=== PATIENT | female | born 1960 | race African-American/Black ===

== ENCOUNTER 2017-12-23 19:01 | Emergency (ER) | payer MEDICARE, SELFPAY ==
[2017-12-23 19:10] VITALS: BP 182/77; PULSE 78; RESP 18; TEMP 36.7; O2SAT 98; BMI 29.2
--- NOTE | 2017-12-23 19:14 | HMH.EDWNDL ---
ED Disposition Clinical Impression: Paronychia, Encounter for incision and drainage procedure Disposition: Home, Self-Care Condition on Discharge: Fair Additional Instructions: 1- keep the finger elevated. 2- continue keflex. 3- added bactrim 2 po bid x 10 days. 4- follow up with dr montaño in AM. 5- Do not peel the skin please. 6- follow up with dr montaño on final x ray report and untill complete healing. Prescriptions: Sulfamethoxazole/Trimethoprim [Bactrim DS tablet] 2 each PO BID #40 tab - Critical Care Critical Care Time: No Attestation: On , the high probability of a clinically significant, sudden or life threatening deterioration of the following system(s) required my full and direct attention, intervention and personal management. The time I documented below is in addition to time spent performing reported procedures but includes the following listed in this critical care notation. Medical Decision Making - Baron Inquiry Pt receiving controlled substance: No Baron was queried for this patient: No Vital Signs: 12/23/17 19:10 Temperature 98.1 F Temperature Source Oral Pulse Rate [Right Radial] 78 Respiratory Rate 18 Blood Pressure [Right Arm] 182/77 Blood Pressure Mean [Right Arm] 112 Blood Pressure Source [Right Arm] Automatic Cuff Blood Pressure Position [Right Arm] Sitting 02 Sat by Pulse Oximetry 98 Oxygen Delivery Method Room Air Orders (Tests/Meds): ORDERS Category Date Time Status Finger XR left minimum 2 views [XR finger LT min 2V] Exams 12/23/17 19:19 Taken Stat Wound Culture and Gram Stain Stat Micro 12/23/17 19:44 Ordered Medical Decision Narrative: Discussed the risks and benefits of incision and drainage to the patient. Under sterile technique used the blade 11 did an L-shaped incision at the posterior pole with complete evacuation of the pus and minimal bleeding. Patient tolerated the procedure. Wound/Laceration HPI - General Stated Complaint: Infection in L middle finger Time Seen by Provider: 12/23/17 19:10 - History of Present Illness HPI narrative: 57 years old -Burmese female of Dr. Roberts who bites her nails she developed a paronychia of the left middle finger 6 days ago. She was seen in urgent care and started on Keflex, he developed a pustule and a friend to try to drain it yesterday with no results. Continues to use her Keflex and she came today for I&D. Denies having fever or chills there is no radiating pain to the upper extremity. Nausea or vomiting. Onset (ago): day(s) (6 days.) Extremity Location: Left: hand (Paronychia of the left middle finger.) Place: home Context: other (Due to nailbiting.) Associated symptoms: pain - Related Data Home Medications Medication Instructions Recorded Confirmed aspirin 325 mg tablet 325 mg PO BID 12/20/17 12/23/17 diltiazem ER (XR/XT) 180 mg 180 mg PO DAILY 90 Days #90 12/20/17 12/23/17 capsule,extended release 24 hr, controlled escitalopram 10 mg tablet 10 mg PO DAILY 30 Days #30 12/20/17 12/23/17 hydrocodone 5 mg-acetaminophen 325 5 mg PO NEEDED PRN 8 Days #30 12/20/17 12/23/17 mg tablet hydroxychloroquine 200 mg tablet 200 mg PO DAILY 30 Days #60 12/20/17 12/23/17 nitroglycerin 0.4 mg sublingual 0.4 mg SUBLINGUAL Q5M PRN 12/20/17 12/23/17 tablet pantoprazole 40 mg tablet,delayed 40 mg PO DAILY 30 Days #30 12/20/17 12/23/17 release ranolazine ER 500 mg 500 mg PO DAILY 90 Days #180 12/20/17 12/23/17 tablet,extended release,12 hr tizanidine 4 mg tablet 4 mg PO NEEDED PRN 30 Days #60 12/20/17 12/23/17 topiramate 100 mg tablet 100 mg PO DAILY 30 Days #60 12/20/17 12/23/17 Previous Rx's Medication Instructions Recorded cephalexin 500 mg capsule 500 mg PO Q12H 10 Days #20 cap 12/20/17 Sulfamethoxazole/Trimethoprim 2 each PO BID #40 tab 12/23/17 [Bactrim DS tablet] Allergies Allergy/AdvReac Type Severity Reaction Status Date / Carloz
--- NOTE | 2017-12-23 19:17 | ED_ITS ---
ED Disposition Clinical Impression: Paronychia, Encounter for incision and drainage procedure Disposition: Home, Self-Care Condition on Discharge: Fair Additional Instructions: 1- keep the finger elevated. 2- continue keflex. 3- added bactrim 2 po bid x 10 days. 4- follow up with dr montaño in AM. 5- Do not peel the skin please. 6- follow up with dr montaño on final x ray report and untill complete healing. Prescriptions: Sulfamethoxazole/Trimethoprim [Bactrim DS tablet] 2 each PO BID #40 tab - Critical Care Critical Care Time: No Attestation: On , the high probability of a clinically significant, sudden or life threatening deterioration of the following system(s) required my full and direct attention, intervention and personal management. The time I documented below is in addition to time spent performing reported procedures but includes the following listed in this critical care notation. Medical Decision Making - Baron Inquiry Pt receiving controlled substance: No Baron was queried for this patient: No Vital Signs: 12/23/17 19:10 Temperature 98.1 F Temperature Source Oral Pulse Rate [Right Radial] 78 Respiratory Rate 18 Blood Pressure [Right Arm] 182/77 Blood Pressure Mean [Right Arm] 112 Blood Pressure Source [Right Arm] Automatic Cuff Blood Pressure Position [Right Arm] Sitting 02 Sat by Pulse Oximetry 98 Oxygen Delivery Method Room Air Orders (Tests/Meds): ORDERS Category Date Time Status Finger XR left minimum 2 views [XR finger LT min 2V] Exams 12/23/17 19:19 Taken Stat Wound Culture and Gram Stain Stat Micro 12/23/17 19:44 Ordered Medical Decision Narrative: Discussed the risks and benefits of incision and drainage to the patient. Under sterile technique used the blade 11 did an L-shaped incision at the posterior pole with complete evacuation of the pus and minimal bleeding. Patient tolerated the procedure. Wound/Laceration HPI - General Stated Complaint: Infection in L middle finger Time Seen by Provider: 12/23/17 19:10 - History of Present Illness HPI narrative: 57 years old -[place] female of Dr. Roberts who bites her nails she developed a paronychia of the left middle finger 6 days ago. She was seen in urgent care and started on Keflex, he developed a pustule and a friend to try to drain it yesterday with no results. Continues to use her Keflex and she came today for I&D. Denies having fever or chills there is no radiating pain to the upper extremity. Nausea or vomiting. Onset (ago): day(s) (6 days.) Extremity Location: Left: hand (Paronychia of the left middle finger.) Place: home Context: other (Due to nailbiting.) Associated symptoms: pain - Related Data Home Medications Medication Instructions Recorded Confirmed aspirin 325 mg tablet 325 mg PO BID 12/20/17 12/23/17 diltiazem ER (XR/XT) 180 mg 180 mg PO DAILY 90 Days #90 12/20/17 12/23/17 capsule,extended release 24 hr, controlled escitalopram 10 mg tablet 10 mg PO DAILY 30 Days #30 12/20/17 12/23/17 hydrocodone 5 mg-acetaminophen 325 5 mg PO NEEDED PRN 8 Days #30 12/20/17 mg tablet hydroxychloroquine 200 mg tablet 200 mg PO DAILY 30 Days #60 12/20/17 12/23/17 nitroglycerin 0.4 mg sublingual 0.4 mg SUBLINGUAL Q5M PRN
--- NOTE | 2017-12-23 19:19 | XR_ITS ---
XR finger LT min 2V CLINICAL INDICATION: Soft tissue swelling, evaluate for foreign body ITS.REASON: r/o fb ORDERING PHYSICIAN: Sharon Regalado MD PATIENT AGE: 57 years COMPARISON: None FINDINGS: Extensive soft tissue swelling is present involving the dorsal and distal aspect of the middle finger. No radio opaque foreign body, bony destructive change, fracture, or other significant anomalies. IMPRESSION: Extensive soft tissue swelling otherwise negative
[2017-12-23 20:05] VITALS: BP 172/88; PULSE 80; RESP 18; TEMP 36.7; O2SAT 99
== END 2017-12-23 20:05 | disposition home or self-care (01) ==
PROVIDERS: Emergency Provider Emergency Medicine; Family Provider Family Medicine; PCP Family Medicine
DX: L03.012 Cellulitis of left finger (principal); I25.10 Atherosclerotic heart disease of native coronary artery without angina pectoris; G43.909 Migraine, unspecified, not intractable, without status migrainosus; Z79.82 Long term (current) use of aspirin
CPT/HCPCS: 10060; 73140; 87070; 87077; 87186; 87205; 99283

== ENCOUNTER → 2018-02-04 09:03 | Outpatient (CLI) | payer MEDICARE, SELFPAY ==
[2018-02-08 21:16] LABS: Miscellaneous Test TPMT ACTIVITY
== END ==
PROVIDERS: Visit Provider Internal Medicine Rheumatology
DX: Z79.899 Other long term (current) drug therapy (principal)
CPT/HCPCS: 36415; 82657

== ENCOUNTER → 2018-03-08 08:31 | Outpatient (CLI) | payer MEDICARE, SELFPAY ==
[2018-03-08 08:58] LABS: Basophils % 0.6 % (0.1-2.0); Eosinophils # 0.3 K/mm3 (0.0-0.4); Eosinophils % 5.8 % (0.1-12.0); Hematocrit 42.7 % (37.0-47.0); Hemoglobin 13.5 g/dL (12.2-16.2); Lymphocytes # 1.5 K/mm3 (0.7-4.5); Lymphocytes % 25.3 K/mm3 (10-50); Mean Corpuscular HGB Conc 31.7 g/dL (31.8-35.4); Mean Corpuscular Hemoglobin 31.8 pg (27.0-31.2); Mean Corpuscular Volume 100.4 fl (81-99); Mean Platelet Volume 7.6 fl (7.4-10.4); Monocytes # 0.4 K/mm3 (0.1-1.0); Monocytes % 6.9 % (1.7-9.3); Neutrophils # 3.7 K/mm3 (1.8-7.8); Neutrophils % 61.4 % (37.0-80.0); Platelet Count 257 K/mm3 (142-424); Red Blood Count 4.25 M/mm3 (4.20-5.40); Red Cell Distribution Width 14.2 % (11.5-17.5)
[2018-03-08 10:24] LABS: Alanine Aminotransferase 26 U/L (12-78); Albumin Level 3.9 gm/dL (3.4-5.0); Alkaline Phosphatase 86 U/L (46-116); Anion Gap 17.2 mEq/L (5-15); Aspartate Amino Transferase 16 U/L (15-37); Bilirubin,Total 0.5 mg/dL (0.2-1.0); Blood Urea Nitrogen 10 mg/dL (7-18); Calcium 9.2 mg/dL (8.5-10.1); Carbon Dioxide 23 mmol/L (21.0-32.0); Chloride 108 mmol/L (98-107); Creatinine,Serum 0.91 mg/dL (0.55-1.02); Estimated Glomerular Filt Rate 64 ml/min (>60); GFR (African American) 77 ML/MIN (>60); Globulin 3.8 gm/dl (1.3-3.2); Glucose 140 mg/dL (74-106); Potassium 4.2 mmoL/L (3.5-5.1); Sodium 144 mmol/L (136-145); Total Protein,Serum 7.7 gm/dL (6.4-8.2)
== END ==
PROVIDERS: Visit Provider Family Medicine
DX: M32.9 Systemic lupus erythematosus, unspecified (principal); Z79.899 Other long term (current) drug therapy
CPT/HCPCS: 36415; 80053; 85025

== ENCOUNTER → 2018-12-09 10:45 | Outpatient (CLI) | payer MEDICARE, SELFPAY ==
[2018-12-09 10:50] LABS: Microscopic, Urine URINE MICROSCOPIC (MICROSCOPIC)
[2018-12-09 11:35] LABS: Basophils % 0.8 % (0.1-2.0); Eosinophils # 0.2 K/mm3 (0.0-0.4); Eosinophils % 5.4 % (0.1-12.0); Hematocrit 41.7 % (37.0-47.0); Lymphocytes # 1.5 K/mm3 (0.7-4.5); Lymphocytes % 33.7 % (10-50); Mean Corpuscular HGB Conc 33.6 g/dL (31.8-35.4); Mean Corpuscular Hemoglobin 33.2 pg (27.0-31.2); Mean Corpuscular Volume 98.8 fl (81-99); Monocytes # 0.3 K/mm3 (0.1-1.0); Monocytes % 6.5 % (1.7-9.3); Neutrophils # 2.3 K/mm3 (1.8-7.8); Neutrophils % 53.4 % (37.0-80.0); Platelet Count 361 K/mm3 (142-424); Red Blood Count 4.22 M/mm3 (4.20-5.40); White Blood Count 4.4 K/mm3 (4.8-10.8)
[2018-12-09 12:30] LABS: Alanine Aminotransferase 21 U/L (12-78); Albumin Level 3.8 gm/dL (3.4-5.0); Albumin/Globulin Ratio 0.9 (1.1-1.8); Alkaline Phosphatase 90 U/L (46-116); Anion Gap 18.3 mEq/L (5-15); Aspartate Amino Transferase 17 U/L (15-37); Bilirubin,Total 0.6 mg/dL (0.2-1.0); Blood Urea Nitrogen 8 mg/dL (7-18); Calcium 9.3 mg/dL (8.5-10.1); Carbon Dioxide 21 mmol/L (21.0-32.0); Chloride 106 mmol/L (98-107); Creatinine,Serum 0.85 mg/dL (0.55-1.02); Estimated Glomerular Filt Rate 69 ml/min (>60); GFR (African American) 83 ML/MIN (>60); Globulin 4.3 gm/dl (1.3-3.2); Glucose 142 mg/dL (74-106); Potassium 4.3 mmoL/L (3.5-5.1); Sodium 141 mmol/L (136-145); Total Protein,Serum 8.1 gm/dL (6.4-8.2)
[2018-12-09 12:31] LABS: C-Reactive Protein < 0.2 mg/L (0.0-0.9)
[2018-12-09 12:33] LABS: Erythrocyte Sedimentation Rate 32 mm/hr (0-30)
[2018-12-09 14:28] LABS: Appearance,Urine CLEAR (Clear); Bilirubin,Urine Negative (Negative); Blood, Urine Negative (Negative); Color,Urine YELLOW (Yellow); Glucose,Urine (UA) Negative (Negative); Ketones,Urine Negative (Negative); Leukocyte Esterase,Urine Negative (Negative); Nitrate,Urine Negative (Negative); Protein,Urine 1+ (Negative); Urobilinogen,Urine 0.2 EU/dl (0.2)
[2018-12-09 14:52] LABS: Bacteria,Urine Trace /lpf; RBC,Urine Occasional #/hpf (0-3)
[2018-12-10 09:44] LABS: Complement C3 138 mg/dL (82-167); Vitamin D 25 Hydroxy 9.4 ng/mL (30.0-100.0)
[2018-12-10 16:10] LABS: Anti-DNA (DS) Ab Qn <1 IU/mL (0-9)
== END ==
PROVIDERS: Visit Provider Internal Medicine Rheumatology
DX: E55.9 Vitamin D deficiency, unspecified (principal); I25.10 Atherosclerotic heart disease of native coronary artery without angina pectoris; M32.9 Systemic lupus erythematosus, unspecified; R13.10 Dysphagia, unspecified; R52 Pain, unspecified
CPT/HCPCS: 36415; 80053; 81001; 82652; 85025; 85651; 86140; 86161; 86225

== ENCOUNTER → 2019-02-20 08:34 | Outpatient (CLI) | payer MEDICARE, SELFPAY ==
--- NOTE | 2019-02-20 | CI_ITS ---
Cerebrovascular Exam Indications: Follow-up carotid 433.10. 785.9 Bruit. IMPRESSIONS 1. The bilateral vertebral arteries are patent with normal antegrade flow. 2. Study suggests less than 20% stenosis involving the right internal carotid artery. 3. Study suggests 50-69% stenosis involving the left internal carotid artery. History: Risk factors: Former smoker - years since quittinyr. Hypertension. Hyperlipidemia. Carotid duplex study. Complete study and Doppler flow study including spectral analysis, color and lora scale imaging. Height: Height: 162.6cm. Height: 64in. Weight: Weight: 73.5kg. Weight: 161.7lb. Body mass index: BMI: 27.8kg/m^2. Body surface area: BSA: 1.84m^2. Location: Vascular laboratory. Patient status: Outpatient. Tables: Arterial flow: + +--------+--------+ Location V sys V ed + +--------+--------+ Right CCA - proximal 64.6cm/s 14.7cm/s + +--------+--------+ Right CCA - distal 58.3cm/s 16.2cm/s + +--------+--------+ Right ECA 96.6cm/s 11.6cm/s + +--------+--------+ Right ICA - proximal 57.3cm/s 15.8cm/s + +--------+--------+ Right ICA - mid 56.8cm/s 15.5cm/s + +--------+--------+ Right ICA - distal 74.6cm/s 24.4cm/s + +--------+--------+ Right vertebral 38.5cm/s 12.8cm/s + +--------+--------+ Left CCA - proximal 80.8cm/s 20.4cm/s + +--------+--------+ Left CCA - distal 73.1cm/s 16.9cm/s + +--------+--------+ Left ECA 72.6cm/s 14.7cm/s + +--------+--------+ Left ICA - proximal 115cm/s 31.6cm/s + +--------+--------+ Left ICA - mid 65cm/s 18.7cm/s + +--------+--------+ Left ICA - distal 80cm/s 24.6cm/s + +--------+--------+ Left vertebral 54.1cm/s 16.2cm/s + +--------+--------+ Velocity ratios: + + + + + + Right, V sys Right, V ed Left, V sys Left, V ed + + + + + + Max ICA/dist CCA 1.28 1.51 1.57 1.87 + + + + + + (Report amended ) Electronically signed by: George Alva [id number]
== END ==
PROVIDERS: PCP Family Medicine; Visit Provider Family Medicine
DX: I65.22 Occlusion and stenosis of left carotid artery (principal); R09.89 Other specified symptoms and signs involving the circulatory and respiratory systems; R29.90 Unspecified symptoms and signs involving the nervous system
CPT/HCPCS: 93880

== ENCOUNTER → 2019-03-21 11:21 | Outpatient (CLI) | payer MEDICARE, SELFPAY ==
[2019-03-21 14:21] LABS: Blood Urea Nitrogen 10 mg/dL (7-18); Creatinine,Serum 0.97 mg/dL (0.55-1.02); Estimated Glomerular Filt Rate 59 ml/min (>60); GFR (African American) 72 ML/MIN (>60)
== END ==
PROVIDERS: Visit Provider Family Medicine
DX: Z01.818 Encounter for other preprocedural examination (principal)
CPT/HCPCS: 36415; 82565; 84520

== ENCOUNTER → 2019-03-25 10:09 | Outpatient (CLI) | payer MEDICARE, SELFPAY ==
--- NOTE | 2019-03-25 10:25 | CT_ITS ---
CT angio neck INDICATION: ITS.REASON: LEFT CAROTID STENOSIS,TIA ORDERING PHYSICIAN: Bharat Roberts MD PATIENT AGE: 58 years COMPARISON: None TECHNIQUE: Axial images are obtained without contrast. Sagittal and coronal reformatted images are reviewed as well. All CT scans at the facility use one or more dose reduction, viz: automated exposure control, ma/kV adjustment per patient size (including targeted exams where dose is matched to indication, i.e. head), or iterative reconstruction technique. FINDINGS: Nascet criteria was utilized. There are some nonstenotic calcifications at the origins of the great vessels from the aortic arch. Proximal left subclavian artery shows irregular calcified plaque with moderate to severe short segment stenosis proximal to the origin of the thyrocervical trunk. Left carotid bifurcation shows some small calcific plaques at the origin of the left ICA and ECA without stenosis. Left cervical ICA is unremarkable. Right carotid circulation also shows some small calcified plaques at the origin of the right ICA without stenosis. Right cervical ICA is unremarkable. Both vertebral arteries are somewhat small and patent. Soft tissues of the neck are unremarkable. There are some emphysematous changes in the apical area of both lungs with multiple right lung calcified granulomas. Intracranial vessels show no definite aneurysm, stenosis or occlusion. There are some nonstenotic calcified plaques involving the cavernous ICA areas bilaterally. Opacified dural sinuses appear normal. There is no vascular malformation or intra-axial parenchymal enhancement. There are nonspecific benign appearing bilateral basal ganglia calcified densities. IMPRESSION: Calcific atherosclerotic vascular disease as described. No hemodynamically significant stenosis involving either of the proximal left or right internal carotid arteries. Moderate to severe stenosis of the proximal left subclavian artery. Intracranial vessels are unremarkable. There is sphenoid sinus mild mucosal thickening. Upper lung areas shows COPD and calcified granulomas.
== END ==
PROVIDERS: PCP Family Medicine; Visit Provider Family Medicine
DX: G45.9 Transient cerebral ischemic attack, unspecified
CPT/HCPCS: 70498; Q9967

== ENCOUNTER → 2019-05-05 11:32 | Outpatient (CLI) | payer MEDICARE, SELFPAY ==
[2019-05-05 14:57] LABS: Alanine Aminotransferase 22 U/L (12-78); Albumin Level 3.6 gm/dL (3.4-5.0); Alkaline Phosphatase 85 U/L (46-116); Anion Gap 14.7 mEq/L (5-15); Bilirubin,Direct 0.1 mg/dL (0.0-0.2); Bilirubin,Total 0.5 mg/dL (0.2-1.0); Blood Urea Nitrogen 10 mg/dL (7-18); Calcium 8.8 mg/dL (8.5-10.1); Carbon Dioxide 23 mmol/L (21.0-32.0); Chloride 107 mmol/L (98-107); Chol/HDL Ratio 4.4 (1-3.5); Cholesterol 161 mg/dL (140-200); Creatinine,Serum 0.88 mg/dL (0.55-1.02); Estimated Glomerular Filt Rate 66 ml/min (>60); GFR (African American) 80 ML/MIN (>60); Globulin 3.7 gm/dl (1.3-3.2); Glucose 130 mg/dL (74-106); HDL Cholesterol 37 mg/dL (29-89); LDL Cholesterol 100 mg/dL (0-130); Sodium 140 mmol/L (136-145); Total Protein,Serum 7.3 gm/dL (6.4-8.2); Triglycerides 121 mg/dL (30-200); VLDL Cholesterol 24 mg/dL (0-40)
[2019-05-05 14:58] LABS: Potassium 4.7 mmoL/L (3.5-5.1)
[2019-05-05 14:59] LABS: Aspartate Amino Transferase 15 U/L (15-37)
== END ==
PROVIDERS: Visit Provider Internal Medicine Cardiovascular Disease
DX: E78.5 Hyperlipidemia, unspecified (principal)
CPT/HCPCS: 36415; 80053; 80061; 82248

== ENCOUNTER → 2019-06-20 11:37 | Outpatient (CLI) | payer MEDICARE, SELFPAY ==
[2019-06-20 12:13] LABS: Basophils # 0.1 K/mm3 (0-0.2); Basophils % 0.8 % (0.1-2.0); Eosinophils # 0.3 K/mm3 (0.0-0.4); Eosinophils % 4.3 % (0.1-12.0); Hematocrit 39.2 % (37.0-47.0); Lymphocytes # 1.2 K/mm3 (0.7-4.5); Lymphocytes % 20.6 % (10-50); Mean Corpuscular Hemoglobin 34.6 pg (27.0-31.2); Mean Corpuscular Volume 104.8 fl (81-99); Mean Platelet Volume 7.5 fl (7.4-10.4); Monocytes # 0.4 K/mm3 (0.1-1.0); Monocytes % 7.4 % (1.7-9.3); Neutrophils % 66.9 % (37.0-80.0); Platelet Count 311 K/mm3 (142-424); Red Blood Count 3.74 M/mm3 (4.20-5.40); Red Cell Distribution Width 13.5 % (11.5-17.5)
[2019-06-20 13:01] LABS: Alanine Aminotransferase 16 U/L (12-78); Albumin Level 3.7 gm/dL (3.4-5.0); Albumin/Globulin Ratio 0.9 (1.1-1.8); Alkaline Phosphatase 77 U/L (46-116); Anion Gap 16.6 mEq/L (5-15); Aspartate Amino Transferase 13 U/L (15-37); Bilirubin,Total 0.7 mg/dL (0.2-1.0); Blood Urea Nitrogen 9 mg/dL (7-18); C-Reactive Protein 2.2 mg/dL (0.0-0.9); Carbon Dioxide 22 mmol/L (21.0-32.0); Chloride 105 mmol/L (98-107); Creatinine,Serum 0.95 mg/dL (0.55-1.02); Estimated Glomerular Filt Rate 60 ml/min (>60); GFR (African American) 73 ML/MIN (>60); Glucose 121 mg/dL (74-106); Potassium 4.6 mmoL/L (3.5-5.1); Sodium 139 mmol/L (136-145); Total Protein,Serum 7.7 gm/dL (6.4-8.2)
[2019-06-20 14:13] LABS: Erythrocyte Sedimentation Rate > 140 mm/hr (0-30)
[2019-06-20 16:42] LABS: Appearance,Urine CLEAR (Clear); Bilirubin,Urine Negative (Negative); Blood, Urine Negative (Negative); Color,Urine YELLOW (Yellow); Glucose,Urine (UA) Negative (Negative); Ketones,Urine Negative (Negative); Leukocyte Esterase,Urine TRACE (Negative); Nitrate,Urine Negative (Negative); Protein,Urine Negative (Negative); Specific Gravity, Urine 1.025 (1.005-1.030)
[2019-06-20 17:26] LABS: Bacteria,Urine Trace /lpf; Squamous Epithelial Cell,Urine Occasional #/hpf (0-5)
[2019-06-21 06:14] LABS: Microscopic, Urine URINE MICROSCOPIC (MICROSCOPIC)
[2019-06-23 14:23] LABS: Complement C3 147 mg/dL (82-167)
[2019-06-23 14:26] LABS: Anti-DNA (DS) Ab Qn <1 IU/mL (0-9)
== END ==
PROVIDERS: Visit Provider Nurse Practitioner Family
DX: M32.9 Systemic lupus erythematosus, unspecified (principal); M85.80 Other specified disorders of bone density and structure, unspecified site; Z79.899 Other long term (current) drug therapy
CPT/HCPCS: 36415; 80053; 81001; 85025; 85651; 86140; 86161; 86225

== ENCOUNTER → 2019-06-30 10:31 | Outpatient (CLI) | payer MEDICARE, SELFPAY ==
[2019-06-30 10:40] LABS: Microscopic, Urine URINE MICROSCOPIC (MICROSCOPIC)
[2019-06-30 11:31] LABS: Basophils # 0.1 K/mm3 (0-0.2); Basophils % 1.1 % (0.1-2.0); Eosinophils # 0.3 K/mm3 (0.0-0.4); Hemoglobin 12.1 g/dL (12.2-16.2); Lymphocytes # 1.5 K/mm3 (0.7-4.5); Lymphocytes % 29.8 % (10-50); Mean Corpuscular HGB Conc 30.9 g/dL (31.8-35.4); Mean Corpuscular Hemoglobin 32.5 pg (27.0-31.2); Mean Corpuscular Volume 105.1 fl (81-99); Mean Platelet Volume 7.4 fl (7.4-10.4); Monocytes # 0.4 K/mm3 (0.1-1.0); Monocytes % 7.1 % (1.7-9.3); Neutrophils # 2.8 K/mm3 (1.8-7.8); Platelet Count 347 K/mm3 (142-424); Red Blood Count 3.71 M/mm3 (4.20-5.40); Red Cell Distribution Width 14.5 % (11.5-17.5); White Blood Count 4.9 K/mm3 (4.8-10.8)
[2019-06-30 12:48] LABS: Appearance,Urine CLEAR (Clear); Bilirubin,Urine Negative (Negative); Blood, Urine Negative (Negative); Color,Urine YELLOW (Yellow); Glucose,Urine (UA) Negative (Negative); Ketones,Urine Negative (Negative); Leukocyte Esterase,Urine Negative (Negative); Nitrate,Urine Negative (Negative); Protein,Urine Negative (Negative)
[2019-06-30 14:56] LABS: Alanine Aminotransferase 19 U/L (12-78); Albumin Level 3.6 gm/dL (3.4-5.0); Albumin/Globulin Ratio 0.9 (1.1-1.8); Alkaline Phosphatase 76 U/L (46-116); Anion Gap 16.3 mEq/L (5-15); Aspartate Amino Transferase 11 U/L (15-37); Bilirubin,Total 0.5 mg/dL (0.2-1.0); Blood Urea Nitrogen 11 mg/dL (7-18); Carbon Dioxide 22 mmol/L (21.0-32.0); Chloride 106 mmol/L (98-107); Creatinine,Serum 0.87 mg/dL (0.55-1.02); Estimated Glomerular Filt Rate 67 ml/min (>60); GFR (African American) 81 ML/MIN (>60); Globulin 3.9 gm/dl (1.3-3.2); Glucose 132 mg/dL (74-106); Potassium 4.3 mmoL/L (3.5-5.1); Sodium 140 mmol/L (136-145); Total Protein,Serum 7.5 gm/dL (6.4-8.2)
[2019-06-30 15:14] LABS: C-Reactive Protein < 0.2 mg/dL (0.0-0.9)
[2019-06-30 16:37] LABS: Erythrocyte Sedimentation Rate 78 mm/hr (0-30)
[2019-06-30 16:48] LABS: Bacteria,Urine Trace /lpf; WBC,Urine Occasional #/hpf (0-3)
[2019-07-01 14:14] LABS: Immunoglobulin A, Qn 439 mg/dL (87-352); Immunoglobulin G, Qn 1471 mg/dL (700-1600)
[2019-07-01 15:14] LABS: Albumin 3.7 g/dL (2.9-4.4); Alpha-1-Globulin 0.3 g/dL (0.0-0.4); Alpha-2-Globulin 0.7 g/dL (0.4-1.0); Gamma Globulin 1.4 g/dL (0.4-1.8); Protein, Total 7.3 g/dL (6.0-8.5)
[2019-07-01 16:15] LABS: Free Kappa Lt Chains 42.3 mg/L (3.3-19.4)
[2019-07-03 06:10] LABS: Immunoglobulin M, Qn 55 mg/dL (26-217)
== END ==
PROVIDERS: Visit Provider Internal Medicine
DX: M32.9 Systemic lupus erythematosus, unspecified (principal); R70.0 Elevated erythrocyte sedimentation rate; Z79.899 Other long term (current) drug therapy
CPT/HCPCS: 36415; 80053; 81001; 82784; 83883; 84155; 84165; 85025; 85651; 86140; 86334

== ENCOUNTER 2019-08-03 07:54 | Inpatient (IN) ==
[2019-08-03 08:18] LABS: Basophils % 0.3 % (0.1-2.0); Eosinophils # 0.4 K/mm3 (0.0-0.4); Eosinophils % 3.6 % (0.1-12.0); Hematocrit 41.9 % (37.0-47.0); Hemoglobin 13.5 g/dL (12.2-16.2); Lymphocytes # 1.4 K/mm3 (0.7-4.5); Lymphocytes % 13.8 % (10-50); Mean Corpuscular HGB Conc 32.1 g/dL (31.8-35.4); Mean Corpuscular Volume 105.4 fl (81-99); Mean Platelet Volume 7.7 fl (7.4-10.4); Monocytes # 0.5 K/mm3 (0.1-1.0); Monocytes % 5.3 % (1.7-9.3); Neutrophils # 7.7 K/mm3 (1.8-7.8); Neutrophils % 77.1 % (37.0-80.0); Platelet Count 298 K/mm3 (142-424); Red Blood Count 3.98 M/mm3 (4.20-5.40); Red Cell Distribution Width 14.2 % (11.5-17.5); White Blood Count 9.9 K/mm3 (4.8-10.8)
--- NOTE | 2019-08-03 08:20 | Emergency Department Note ---
ED Disposition Clinical Impression: Acute coronary syndrome with high troponin Chest pain Qualifiers: Chest pain type: chest pain due to myocardial ischemia Ischemic chest pain typ e: unspecified angina pectoris type Qualified Code(s): I25.9 - Chronic ischemic heart disease, unspecified Disposition: Admitted As Inpatient Condition on Discharge: Fair Additional Instructions: Being admitted to Dr. Roberts with Dr. Roque covering and consult to Dr. Walden Referrals: Provider,Referral, [Referring] - Time of Disposition: 08:51 - Critical Care Critical Care Time: Yes Attestation: On 08/03/19, the high probability of a clinically significant, sudden or life threatening deterioration of the following system(s) required my full and direct attention, intervention and personal management. The time I documented below is in addition to time spent performing reported procedures but includes the following listed in this critical care notation. Vital system(s) involved:: Circulatory Failure My critical care processes included: Assessment & monitoring of V/S, Initial and Re-exams, Data Review/Interpretation, Coordinating Care, Medication Orders and management, Documentation Medical Decision Making - Medical Records Medical records reviewed: Yes: I reviewed the patient's medical records. - Baron Inquiry Pt receiving controlled substance: Yes Baron was queried for this patient: No Reason not queried -: Emergent pt cond-no time Risks and benefits of using a controlled substance: were not discussed with pt by me Vital Signs: 08/03/19 08:00 08/03/19 08:07 Temperature 97.8 F Temperature Source Oral Pulse Rate [Right Brachial] 79 75 Respiratory Rate 15 18 Blood Pressure [Right Arm] 188/96 H 134/75 Blood Pressure Mean [Right Arm] 126 94 Blood Pressure Source [Right Arm] Automatic Cuff Blood Pressure Position [Right Arm] Sitting 02 Sat by Pulse Oximetry 100 98 Oxygen Delivery Method Room Air Room Air - Lab Data Lab results reviewed: Yes: I reviewed the patient's lab results. Lab Results 08/03/19 08:03: WBC 9.9, RBC 3.98 L, Hgb 13.5, Hct 41.9, MCV 105.4 H, MCH 33.8 H , MCHC 32.1, RDW 14.2, Plt Count 298, MPV 7.7, Neut % (Auto) 77.1, Lymph % (Auto) 13.8, Banner % (Auto) 5.3, Eos % (Auto) 3.6, Baso % (Auto) 0.3, Neut # (Auto) 7.7, Lymph # (Auto) 1.4, Banner # (Auto) 0.5, Eos # (Auto) 0.4, Baso # (Auto) 0.0 08/03/19 08:03: B-Natriuretic Peptide 177 H Result diagrams: 08/03/19 08:03 Orders (Tests/Meds): ED MEDICATIONS Generic Name Dose Route Start Last Admin Trade Name Freq PRN Reason Stop Dose Admin Heparin Sodium/Dextrose 500 mls @ 17 mls/hr 08/03/19 08:15 08/03/19 08:16 Heparin 25,000 Units In D5w 500ml Premix IV 09/02/19 08:14 17 mls/hr .Q25H ELOY Administration Nitroglycerin 0.4 mg 08/03/19 08:16 08/03/19 08:18 Nitrostat 0.4mg Sl Tablet SL 09/02/19 08:15 1 dose Q5MINP PRN Administration Chest Pain Discontinued Medications Generic Name Dose Route Start Last Admin Trade Name Freq PRN Reason Stop Dose Admin Aspirin 324 mg 08/03/19 08:15 08/03/19 08:18 Aspirin 81mg Chewable Tablet PO 08/03/19 08:16 324 mg ONCE ONE Administration Heparin Sodium (Porcine) 4,000 unit 08/03/19 08:15 08/03/19 08:16 Heparin Sodium 5,000 Units/Ml Vial IV 08/03/19 08:16 4,000 unit ONCE ONE Administration Methylprednisolone Sodium Succinate 125 mg 08/03/19 08:27 Solu-Medrol 125mg/2ml Vial IV 08/03/19 08:28 ONCE ONE Morphine Sulfate 4 mg 08/03/19 08:07 08/03/19 08:16 Morphine 4mg/Ml Syringe IV 08/03/19 08:08 4 mg ONCE ONE Administration Naloxone HCl 2 mg 08/03/19 08:26 Narcan 2mg/2ml Syringe IV 08/03/19 08:27 ONCE ONE Ondansetron HCl 4 mg 08/03/19 08:07 08/03/19 08:16 Zofran 4mg/2ml Vial IV 08/03/19 08:08 4 mg ONCE ONE Administration Ticagrelor 180 mg 08/03/19 08:16 Brilinta 90mg Tablet PO 08/03/19 08:17 ONCE ONE ORDERS Category Date Time Status Basic Metabolic Panel Stat Lab 08/03/19 08:03 Received INR [Prothrombin Time INR] Stat Lab 08/03/19 08:03 Ordered PT/PTT Stat Lab 08/03/19 08:28 Ordered PTT [Activated Partial Thrombo Time] Stat Lab 08/03/19 08:03 Stop Req Troponin I Stat Lab 08/03/19 08:03 Received ABG [Arterial Blood Gas] Stat RT 08/03/19 08:27 Ordered EKG Request [ECG Request by /Nse] Stat Y 08/03/19 08:28 Ordered - Radiology Data #1 Image(s): Chest Image Reviewed: Yes I reviewed the patient's radiology image Preliminary Findings: Normal/NAD Chest Pain HPI - General Chief Complaint: Chest Pain Stated Complaint: chest pain Time Seen by Provider: 08/03/19 07:54 Mode of Arrival: Family Vehicle Limitations: No Limitations Description of Symptoms (Recalled from ER Triage Doc. by RN): pt presents after having had sharp cp throughout night since 0 that she said woke her out of sleep. describes as intermittent, with no acute nausea, diaphoresis, or syncope. pt has a history of [address] sandoval - History of Present Illness HPI narrative: Patient is a 59-year-old black female who comes to the emergency room having awakened at 3:00 this morning with chest pain that she rated 7 on a scale of 10 she has a history of coronary artery disease and had a 4 had a 5 vessel CABG in the past. She is also had a splenectomy and has a history of lupus with hypertension she has been followed by Dr. Sandoval at [facility] in [place] but at this time she would prefer to stay at this facility for continuing treatment I have discussed her care with Dr. Walden and have ordered the medication that he he recommended at the present time her chest pain is less than 3 out of 10 and her blood pressure is down to 134 systolic MD complaint: chest pain indicative of cardiac Onset (ago): hour(s) Time: 03:00 Duration: constant Activity at onset: awoke with symptoms Pain location: substernal Quality: heaviness Relieving factors: nothing Exacerbating factors: nothing Associated symptoms: dyspnea Risk Factors for CAD: Hypertension Treatments prior to or on arrival for Cardiac Chest Pain: none - ASHLY Score for Non-Stemi Age of Patient: 50-59 years old Heart Rate: 70-89 bpm Systolic Blood Pressure: 160-199 mmHg CHF Killip Class: I-No CHF Other Risk Factors: Elevated Cardiac Enzymes or Biomarkers Non-Stemi Risk Score: 15 - Related Data Prior Cardiac Testing/Procedures: CABG On Oral Contraceptives: No Home Medications Medication Instructions Recorded Confirmed aspirin 325 mg tablet 325 mg PO BID 12/20/17 02/09/19 diltiazem ER (XR/XT) 180 mg 180 mg PO DAILY 90 Days #90 12/20/17 02/09/19 capsule,extended release 24 hr, controlled escitalopram 10 mg tablet 10 mg PO DAILY 30 Days #30 12/20/17 02/09/19 hydrocodone 5 mg-acetaminophen 325 5 mg PO NEEDED PRN 8 Days #30 12/20/17 02/09/19 mg tablet hydroxychloroquine 200 mg tablet 200 mg PO DAILY 30 Days #60 12/20/17 02/09/19 nitroglycerin 0.4 mg sublingual 0.4 mg SUBLINGUAL Q5M PRN 12/20/17 02/09/19 tablet pantoprazole 40 mg tablet,delayed 40 mg PO DAILY 30 Days #30 12/20/17 02/09/19 release ranolazine ER 500 mg 500 mg PO BID 90 Days #180 12/20/17 02/09/19 tablet,extended release,12 hr tizanidine 4 mg tablet 4 mg PO BID 30 Days #60 12/20/17 02/09/19 topiramate 100 mg tablet 100 mg PO DAILY 30 Days #60 12/20/17 02/09/19 Tramadol HCl [Tramadol 50mg 1 - 2 tab PO DAILY 02/09/19 02/09/19 Tab] azaTHIOprine [Azathioprine] 50 mg PO BID 02/09/19 02/09/19 dilTIAZem HCl [Cartia Xt] 240 mg PO DAILY 02/09/19 02/09/19 Allergies Allergy/AdvReac Type Severity Reaction Status Date / Time No Known Allergies Allergy Verified 12/20/17 18:53 [facility] History - Hepatitis A Screen Drug use history?: No High risk sexual behaviors?: No History of sexually transmitted infection?: No Currently employed?: No Childcare worker?: No Do you have indoor plumbing?: Yes Do you have electricity?: Yes Attestation statement:: This patient has been screened for Hepatitis A risk factors. I have reviewed the patient's past medical history: Yes Medical History: Reports:: Anxiety, Cancer, Congestive Heart Failure, Depressio n, Hyperlipidemia, Hypertension, Migraine Denies:: Diabetes Mellitus Type 1, Diabetes Mellitus Type 2, Internal Pacemaker Other Medical History: Reports: Arthritis, Other (lupus, heart disease, benign chest pain) Other Surgeries: Yes: No Previous Surgery, CABG (x5), Cholecystectomy, Splenectomy, Other. No: Pacemaker Comment: hysterectomy, saliva gland removed, spine, - Social History Educational Level: Completed High School Smoking Status: Never smoker Alcohol Intake: current Alcohol Intake Frequency:: holidays/special occasions only Occupational Status: unemployed - Psychiatric History Pschychiatric History:: Reports:: Anxiety, Depression Family Hx:: Coronary Artery Disease ROS Obtained: Yes All systems reviewed & no additional complaints - Constitutional Constitutional: Reports system reviewed and no additional complaints, except as docu, Reports as per HPI - Cardiovascular Cardiovascular: Reports system reviewed and no additional complaints, except as docu, Reports as per HPI, Reports chest pain, Reports chest pain at rest - Respiratory Respiratory: Yes system reviewed and no additional complaints, except as docu, Yes as per HPI Physical Exam - General General appearance: alert, in no apparent distress - Head Head exam: atraumatic - Eye Eye exam: Present: normal appearance - ENT ENT exam: Present: normal exam - Neck Neck exam: Present: normal inspection - Chest Chest inspection: Present: normal inspection - Respiratory Respiratory exam: Present: normal lung sounds bilaterally - Cardiovascular Cardiovascular exam: Present: regular rate, normal rhythm - Abdominal Exam Abdominal exam: Present: soft - Neurological Exam Neurological exam: Present: alert, oriented X3 - Psychiatric Psychiatric exam: Present: normal affect, normal mood
[2019-08-03 08:29] LABS: Anion Gap 16.1 mEq/L (5-15); Calcium 9.3 mg/dL (8.5-10.1)
[2019-08-03 08:50] LABS: ABG Base Excess -9.6 mmol/L (-2.4-2.3); ABG HCO3 16.6 mmhg (22.0-26.0); ABG Oxygen Saturation 98 % (90-100); ABG PCO2 33.4 mmhg (35.0-45.0); ABG PH 7.31 mmol/L (7.35-7.45); ABG PO2 109.2 mmhg (80-100); ABG TCO2 17.6 mmhg (23-27)
[2019-08-03 08:52] LABS: Allen's Test ACCEPTABLE; Oxygen 28 %
[2019-08-03 17:27] LABS: Activated Partial Thrombo Time 28.2 seconds (23.6-34.0); INR 0.98 (0.9-1.1); Prothrombin Time 10.2 seconds (9.4-11.8)
[2019-08-04 05:24] LABS: Basophils % 0.2 % (0.1-2.0); Eosinophils # 0.1 K/mm3 (0.0-0.4); Eosinophils % 0.8 % (0.1-12.0); Hematocrit 33.5 % (37.0-47.0); Lymphocytes # 1.5 K/mm3 (0.7-4.5); Lymphocytes % 10.8 % (10-50); Mean Corpuscular HGB Conc 31.5 g/dL (31.8-35.4); Mean Corpuscular Volume 108.4 fl (81-99); Mean Platelet Volume 7.8 fl (7.4-10.4); Monocytes % 7.4 % (1.7-9.3); Neutrophils # 11.4 K/mm3 (1.8-7.8); Neutrophils % 80.8 % (37.0-80.0); Platelet Count 242 K/mm3 (142-424); Red Blood Count 3.09 M/mm3 (4.20-5.40); Red Cell Distribution Width 14.3 % (11.5-17.5); White Blood Count 14.1 K/mm3 (4.8-10.8)
[2019-08-04 05:26] LABS: Hemoglobin 10.6 g/dL (12.2-16.2)
[2019-08-04 05:37] LABS: Albumin/Globulin Ratio 0.8 (1.1-1.8); Anion Gap 15.6 mEq/L (5-15); Calcium 8.6 mg/dL (8.5-10.1); Chol/HDL Ratio 3.3 (1-3.5); Globulin 3.8 gm/dl (1.3-3.2); Total Protein,Serum 6.8 gm/dL (6.4-8.2)
--- NOTE | 2019-08-04 07:37 | Pharmacy Consult Notes ---
[facility] Pharmacy VTE Monitoring - Patient Demographics Admission date: 08/03/19 Report Date: 08/04/19 Time: 07:37 Allergies/Adverse Reactions: Patient Allergies No Known Allergies Allergy (Verified 12/20/17 18:53) Height: 1.63 m Weight: 72.688 kg Patient Problems: Current Active Problems Acute coronary syndrome with high troponin (Acute) Chest pain (Acute) - VTE Risk Labs: VTE Related Lab Results Hgb 10.6 g/dL (12.2-16.2) L D 08/04/19 05:05 Hct 33.5 % (37.0-47.0) L 08/04/19 05:05 Plt Count 242 K/mm3 (142-424) 08/04/19 05:05 PT 10.2 seconds (9.4-11.8) 08/03/19 08:45 INR 0.98 (0.9-1.1) 08/03/19 08:45 APTT 28.2 seconds (23.6-34.0) 08/03/19 08:45 BUN 11 mg/dL (7-18) 08/04/19 05:05 Creatinine 0.92 mg/dL (0.55-1.02) 08/04/19 05:05 Estimated Creat Clear 76 mL/min (50-200) 08/04/19 05:05 - Prophylaxis VTE Prophylaxis Ordered?: Yes Types of VTE Prophylaxis: TEDS Knee High, Pharmacological Location of Applied Device: Bilateral Lower Extremeties Pharmacologic Type: Other (BRILINTA) - VTE Diagnosis Confirmed Treatment or plan recommended: Continue Current Treatment
--- NOTE | 2019-08-04 07:43 | History & Physical Report ---
*Admission Date: 08/03/19 *Chief complaint: Chest pain *History of present illness: 59-year-old female with known coronary artery disease and history of CABG presented to the hospital around 7 AM on August 03 after awakening at 3 AM with a throbbing chest pain that radiated up into her neck and shoulders bilaterally with associated headache. Patient states she "knew something was wrong" but was hoping discomfort would go away and when it did not she sought treatment at the emergency department. Patient underwent work-up and troponin was elevated at 61. Dr. Walden was contacted and patient was taken to the [facility]. Patient underwent left heart catheterization successful stenting. This resulted in resolution of chest pain. Overnight patient has done well. She did complain of some nausea yesterday evening and had some mild chest discomfort this morning that was relieved with pain medication [facility] History I have reviewed the patient's past medical history: Yes Medical History: Reports:: Anxiety, Cancer (hodkins), Congestive Heart Failure, Depression, Hyperlipidemia, Hypertension, Migraine, Myocardial Infarction Denies:: Diabetes Mellitus Type 1, Diabetes Mellitus Type 2, Internal Pacemaker *Have you ever received a pneumonia vaccine?: Yes *Have you received a flu vaccine this season?: No Other Medical History: Reports: Arthritis, Other (lupus, heart disease, benign chest pain) Other Surgeries: Yes: No Previous Surgery, CABG (x5), Cholecystectomy, Splenectomy, Other. No: Pacemaker - *Social History Educational Level: Completed High School Smoking Status: Never smoker Alcohol Intake: current Alcohol Intake Frequency:: holidays/special occasions only *Occupational Status:: unemployed *Travel in the last 8 weeks: None - Psychiatric History Pschychiatric History:: Reports:: Anxiety, Depression Family Hx:: Coronary Artery Disease Review of Systems - Review of Systems Review of systems:: pertinent systems reviewed and negative unless documented below - *Respiratory Denies change in phlegm color, Denies chest congestion, Denies cough, Denies shortness of breath Meds Home Medications Medication Instructions Recorded Confirmed Type aspirin 325 mg tablet 325 mg PO BID 12/20/17 08/03/19 History diltiazem ER (XR/XT) 180 mg 180 mg PO DAILY 90 Days #90 12/20/17 08/03/19 History capsule,extended release 24 hr, controlled escitalopram 10 mg tablet 10 mg PO DAILY 30 Days #30 12/20/17 08/03/19 History hydrocodone 5 mg-acetaminophen 325 5 mg PO Q6H PRN 8 Days #30 12/20/17 08/03/19 History mg tablet hydroxychloroquine 200 mg tablet 200 mg PO DAILY 30 Days #60 12/20/17 08/03/19 History nitroglycerin 0.4 mg sublingual 0.4 mg SUBLINGUAL Q5M PRN 12/20/17 08/03/19 History tablet pantoprazole 40 mg tablet,delayed 40 mg PO DAILY 30 Days #30 12/20/17 08/03/19 History release ranolazine ER 500 mg 500 mg PO BID 90 Days #180 12/20/17 08/03/19 History tablet,extended release,12 hr tizanidine 4 mg tablet 4 mg PO BID 30 Days #60 12/20/17 08/03/19 History topiramate 100 mg tablet 100 mg PO DAILY 30 Days #60 12/20/17 08/03/19 History Tramadol HCl [Tramadol 50mg 1 - 2 tab PO DAILY 02/09/19 02/09/19 History Tab] azaTHIOprine [Azathioprine] 50 mg PO BID 02/09/19 08/03/19 History dilTIAZem HCl [Cartia Xt] 240 mg PO HS 02/09/19 08/03/19 History Allergies Allergy/AdvReac Type Severity Reaction Status Date / Time No Known Allergies Allergy Verified 12/20/17 18:53 Exam Vital signs and Labs for Last 24 Hours: Temp Pulse Resp BP Pulse Ox 98.0 F 74 12 110/51 L 100 08/04/19 04:00 08/04/19 06:00 08/04/19 06:00 08/04/19 06:00 08/04/19 06:00 Laboratory Results - last 24 hr 08/03/19 08:03: WBC 9.9, RBC 3.98 L, Hgb 13.5, Hct 41.9, MCV 105.4 H, MCH 33.8 H , MCHC 32.1, RDW 14.2, Plt Count 298, MPV 7.7, Neut % (Auto) 77.1, Lymph % (Auto) 13.8, [place] % (Auto) 5.3, Eos % (Auto) 3.6, Baso % (Auto) 0.3, Neut # (Auto) 7.7, Lymph # (Auto) 1.4, [place] # (Auto) 0.5, Eos # (Auto) 0.4, Baso # ( Auto) 0.0 08/03/19 08:03: Sodium 139, Potassium 4.1, Chloride 105, Carbon Dioxide 22, Anion Gap 16.1 H, BUN 10, Creatinine 0.93, Estimated Creat Clear 73, Estimated GFR 62, Est GFR ( Amer) 75, Glucose 157 H, Calcium 9.3, Troponin I 61.54 H 08/03/19 08:03: B-Natriuretic Peptide 177 H 08/03/19 08:27: Specimen Source Left radial, O2 % 28, ABG pH 7.31 L, ABG pCO2 33.4 L, ABG pO2 109.2 H, ABG HCO3 16.6 L, ABG Total CO2 17.6 L, ABG O2 Saturation 98, ABG Base Excess -9.6 L, George Test Acceptable 08/03/19 08:45: PT 10.2, INR 0.98, APTT 28.2 08/03/19 09:28: POC Glucose 178 H 08/03/19 13:35: Activated Clotting Time 352 H* 08/04/19 05:05: WBC 14.1 H D, RBC 3.09 L, Hgb 10.6 L D, Hct 33.5 L, MCV 108.4 H, MCH 34.2 H, MCHC 31.5 L, RDW 14.3, Plt Count 242, MPV 7.8, Neut % (Auto) 80.8 H, Lymph % (Auto) 10.8, [place] % (Auto) 7.4, Eos % (Auto) 0.8, Baso % (Auto) 0.2, Neut # (Auto) 11.4 H, Lymph # (Auto) 1.5, [place] # (Auto) 1.0, Eos # (Auto) 0.1, Baso # (Auto) 0.0 08/04/19 05:05: Sodium 141, Potassium 3.6, Chloride 110 H, Carbon Dioxide 19 L, Anion Gap 15.6 H, BUN 11, Creatinine 0.92, Estimated Creat Clear 76, Estimated GFR 63, Est GFR ( Amer) 76, Glucose 138 H, Calcium 8.6, Total Bilirubin 1.0, AST 199 H, ALT 36, Alkaline Phosphatase 61, Total Protein 6.8, Albumin 3.0 L, Globulin 3.8 H, Albumin/Globulin Ratio 0.8 L, Triglycerides 73, Cholesterol 132 L, LDL Cholesterol 77, VLDL Cholesterol 15, HDL Cholesterol 40, Cholesterol/HDL Ratio 3.3 I & O for Last 24 hours: Intake & Output 08/01/19 08/02/19 08/03/19 08/04/19 12:59 12:59 11:59 11:59 Intake Total 706 / 706 Balance 706 / 706 Weight 160 lb 3.994 oz - Constitutional no acute distress - *Routine HEENT Exam Head: Present: normocephalic Eye: Present: EOMI, PERRL ENT: Present: mucous membranes moist - *Routine Neck Exam Present: supple. Absent: lymphadenopathy - *Routine Respiratory Exam Present: CTA bilaterally - *Routine Cardiovascular Exam Present: RRR, Normal S1, Normal S2 - *Routine Abdominal Exam Present: soft, normoactive bowel sounds. Absent: tenderness - *Routine Extremities Exam Absent: cyanosis, clubbing, edema - *Routine Skin Exam Present: warm. Absent: rash - *Routine Neurological Exam Present: alert, oriented X3 - Detailed Eye Exam Eyelids: Left normal inspection Assessment and Plan (1) Non-ST elevation [place] (NSTEMI) Current visit: Yes Status: Acute Category: Medical Code(s): I21.4 - Non-ST elevation (NSTEMI) myocardial infarction (2) Coronary artery disease Current visit: Yes Status: Acute Category: Medical Code(s): I25.10 - Atherosclerotic heart disease of [place] coronary artery without angina pectoris
--- NOTE | 2019-08-04 07:56 | History & Physical Report ---
*Admission Date: 08/03/19 *Chief complaint: Chest pain *History of present illness: 59-year-old female with known coronary artery disease and history of CABG presented to the hospital around 7 AM on August 03 after awakening at 3 AM with a throbbing chest pain that radiated up into her neck and shoulders bilaterally with associated headache. Patient states she "knew something was wrong" but was hoping discomfort would go away and when it did not she sought treatment at the emergency department. Patient underwent work-up and troponin was elevated at 61. Dr. Walden was contacted and patient was taken to the [facility]. Patient underwent left heart catheterization successful stenting. This resulted in resolution of chest pain. Overnight patient has done well. She did complain of some nausea yesterday evening and had some mild chest discomfort this morning that was relieved with pain medication [facility] History Medical History: Reports:: Anxiety, Cancer (hodkins), Congestive Heart Failure, Depression, Hyperlipidemia, Hypertension, Migraine, Myocardial Infarction Denies:: Diabetes Mellitus Type 1, Diabetes Mellitus Type 2, Internal Pacemaker *Have you ever received a pneumonia vaccine?: Yes *Have you received a flu vaccine this season?: No Other Medical History: Reports: Arthritis, Other (lupus, heart disease, benign chest pain) Other Surgeries: Yes: No Previous Surgery, CABG (x5), Cholecystectomy, Splenectomy, Other. No: Pacemaker - *Social History Educational Level: Completed High School Smoking Status: Never smoker Alcohol Intake: current Alcohol Intake Frequency:: holidays/special occasions only *Occupational Status:: unemployed *Travel in the last 8 weeks: None - Psychiatric History Pschychiatric History:: Reports:: Anxiety, Depression Family Hx:: Coronary Artery Disease Meds Home Medications Medication Instructions Recorded Confirmed Type aspirin 325 mg tablet 325 mg PO BID 12/20/17 08/03/19 History diltiazem ER (XR/XT) 180 mg 180 mg PO DAILY 90 Days #90 12/20/17 08/03/19 History capsule,extended release 24 hr, controlled escitalopram 10 mg tablet 10 mg PO DAILY 30 Days #30 12/20/17 08/03/19 History hydrocodone 5 mg-acetaminophen 325 5 mg PO Q6H PRN 8 Days #30 12/20/17 08/03/19 History mg tablet hydroxychloroquine 200 mg tablet 200 mg PO DAILY 30 Days #60 12/20/17 08/03/19 History nitroglycerin 0.4 mg sublingual 0.4 mg SUBLINGUAL Q5M PRN 12/20/17 08/03/19 History tablet pantoprazole 40 mg tablet,delayed 40 mg PO DAILY 30 Days #30 12/20/17 08/03/19 History release ranolazine ER 500 mg 500 mg PO BID 90 Days #180 12/20/17 08/03/19 History tablet,extended release,12 hr tizanidine 4 mg tablet 4 mg PO BID 30 Days #60 12/20/17 08/03/19 History topiramate 100 mg tablet 100 mg PO DAILY 30 Days #60 12/20/17 08/03/19 History Tramadol HCl [Tramadol 50mg 1 - 2 tab PO DAILY 02/09/19 02/09/19 History Tab] azaTHIOprine [Azathioprine] 50 mg PO BID 02/09/19 08/03/19 History dilTIAZem HCl [Cartia Xt] 240 mg PO HS 02/09/19 08/03/19 History Allergies Allergy/AdvReac Type Severity Reaction Status Date / Time No Known Allergies Allergy Verified 12/20/17 18:53 Exam Vital signs and Labs for Last 24 Hours: Temp Pulse Resp BP Pulse Ox 98.0 F 74 12 110/51 L 100 08/04/19 04:00 08/04/19 06:00 08/04/19 06:00 08/04/19 06:00 08/04/19 06:00 Laboratory Results - last 24 hr 08/03/19 08:03: WBC 9.9, RBC 3.98 L, Hgb 13.5, Hct 41.9, MCV 105.4 H, MCH 33.8 H , MCHC 32.1, RDW 14.2, Plt Count 298, MPV 7.7, Neut % (Auto) 77.1, Lymph % (Auto) 13.8, [place] % (Auto) 5.3, Eos % (Auto) 3.6, Baso % (Auto) 0.3, Neut # (Auto) 7.7, Lymph # (Auto) 1.4, [place] # (Auto) 0.5, Eos # (Auto) 0.4, Baso # (Auto) 0.0 08/03/19 08:03: Sodium 139, Potassium 4.1, Chloride 105, Carbon Dioxide 22, Anion Gap 16.1 H, BUN 10, Creatinine 0.93, Estimated Creat Clear 73, Estimated GFR 62, Est GFR ( Amer) 75, Glucose 157 H, Calcium 9.3, Troponin I 61.54 H 08/03/19 08:03: B-Natriuretic Peptide 177 H 08/03/19 08:27: Specimen Source Left radial, O2 % 28, ABG pH 7.31 L, ABG pCO2 33.4 L, ABG pO2 109.2 H, ABG HCO3 16.6 L, ABG Total CO2 17.6 L, ABG O2 Saturation 98, ABG Base Excess -9.6 L, George Test Acceptable 08/03/19 08:45: PT 10.2, INR 0.98, APTT 28.2 08/03/19 09:28: POC Glucose 178 H 08/03/19 13:35: Activated Clotting Time 352 H* 08/04/19 05:05: WBC 14.1 H D, RBC 3.09 L, Hgb 10.6 L D, Hct 33.5 L, MCV 108.4 H, MCH 34.2 H, MCHC 31.5 L, RDW 14.3, Plt Count 242, MPV 7.8, Neut % (Auto) 80.8 H, Lymph % (Auto) 10.8, [place] % (Auto) 7.4, Eos % (Auto) 0.8, Baso % (Auto) 0.2, Neut # (Auto) 11.4 H, Lymph # (Auto) 1.5, [place] # (Auto) 1.0, Eos # (Auto) 0.1, Baso # (Auto) 0.0 08/04/19 05:05: Sodium 141, Potassium 3.6, Chloride 110 H, Carbon Dioxide 19 L, Anion Gap 15.6 H, BUN 11, Creatinine 0.92, Estimated Creat Clear 76, Estimated GFR 63, Est GFR ( Amer) 76, Glucose 138 H, Calcium 8.6, Total Bilirubin 1.0, AST 199 H, ALT 36, Alkaline Phosphatase 61, Total Protein 6.8, Albumin 3.0 L, Globulin 3.8 H, Albumin/Globulin Ratio 0.8 L, Triglycerides 73, Cholesterol 132 L, LDL Cholesterol 77, VLDL Cholesterol 15, HDL Cholesterol 40, Cholesterol/HDL Ratio 3.3 I & O for Last 24 hours: Intake & Output 08/01/19 08/02/19 08/03/19 08/04/19 12:59 12:59 11:59 11:59 Intake Total 706 / 706 Balance 706 / 706 Weight 160 lb 3.994 oz Assessment and Plan (1) Non-ST elevation [place] (NSTEMI) Current visit: Yes Status: Acute Category: Medical Code(s): I21.4 - Non-ST elevation (NSTEMI) myocardial infarction (2) Coronary artery disease Current visit: Yes Status: Acute Category: Medical Code(s): I25.10 - Atherosclerotic heart disease of [place] coronary artery without angina pectoris - Assessment and plan all Dx Assessment and Plan for all problems:: Patient is stable at this time. Await cardiology evaluation and medication changes today.
--- NOTE | 2019-08-04 08:38 | Consult Report ---
History of Present Illness Consult date: 08/04/19 Requesting physician: Bharat Roberts Consult reason: chest pain Chief complaint: chest pain/NSTEMI Additional Medical History:: 1. HTN 2. Hyperlipidemia 3. CAD A. CABG (X3?), 2007, with ESPINOS[place] to LAD, SVG to diagonal and SVG to OM B. NSTEMI, 08/2019, JUDD to L Main, LAD and RCA. Loss of [place] to LAD. Results: ANGIOGRAPHIC RESULTS The left main artery Has a distal greater than 90% stenosis The left anterior descending artery Has a complex ostial greater than 90% stenosis followed by additional 50% stenoses. 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 There is retrograde filling from the vein graft back into the [place] LAD. Due to complex tortuosity additional stenoses cannot be laid out from the first diagonal artery into the [place] LAD Saphenous vein graft to the small obtuse marginal artery is patent with diffuse mild atheromatous plaque IMPRESSION Loss of left internal mammary artery to the LAD Patent saphenous vein graft supplying a moderate size diagonal artery which also was filling the [place] very large LAD in a retrograde manner which appeared to be physiologically and adequate. Successful stenting of the left main artery extending into the proximal LAD critical disease reduced to 0% with 3 contiguous drug-eluting stents resulting in significant improvement from NAOMIE I to NAOMIE- 3 flow down the [place] left main LAD system Critical disease in the proximal to mid dominant right coronary artery with successful stenting of the ostial proximal mid right coronary artery critical disease reduced to 0% with 2 contiguous drug-eluting stents Preserved ejection fraction Mildly elevated LVEDP Patent saphenous vein graft supplying a small obtuse marginal artery 4. History of migraine headaches 5. Depression 6. History of Hodgkins 7. Carotid artery stenosis A. CNI, 01/2019, LICA 50-69%, JEOVANY <20% 8. Abnormal EKG with right ventricular conduction delay and ST segment abnormalities inferior and laterally History of present illness: 59-year-old female with known coronary artery disease and history of CABG presented to the hospital around 7 AM on August 03 after awakening at 3 AM with a throbbing chest pain that radiated up into her neck and shoulders bilaterally with associated headache. Patient states she "knew something was wrong" but was hoping discomfort would go away and when it did not she sought treatment at the emergency department. Patient underwent work-up and troponin was elevated at 61. Dr. Walden was contacted and patient was taken to the [facility]. Patient underwent left heart catheterization successful stenting. This resulted in resolution of chest pain. Overnight patient has done well. She did complain of some nausea yesterday evening and had some mild chest discomfort this morning that was relieved with pain medication The above per Dr. Roberts Patient now admits that chest discomfort began on Sunday intermittently and progressively worsened. She does relate some chest soreness this AM that is worse with deep breathing. Patient has been seeing Dr. Sandoval in [place] for her cardiology care. [facility] History Medical History: Reports:: Anxiety, Cancer (hodkins), Congestive Heart Failure, Depression, Hyperlipidemia, Hypertension, Migraine, Myocardial Infarction Denies:: Diabetes Mellitus Type 1, Diabetes Mellitus Type 2, Internal Pacemaker *Have you ever received a pneumonia vaccine?: Yes *Have you received a flu vaccine this season?: No Other Medical History: Reports: Arthritis, Other (lupus, heart disease, benign chest pain) Other Surgeries: Yes: No Previous Surgery, CABG (x5), Cholecystectomy, Splenectomy, Other. No: Pacemaker - *Social History Educational Level: Completed High School Smoking Status: Never smoker Alcohol Intake: current Alcohol Intake Frequency:: holidays/special occasions only *Occupational Status:: unemployed *Travel in the last 8 weeks: None - Psychiatric History Pschychiatric History:: Reports:: Anxiety, Depression Family Hx:: Coronary Artery Disease Meds Home Medications Medication Instructions Recorded Confirmed Type aspirin 325 mg tablet 325 mg PO DAILY 12/20/17 08/04/19 History diltiazem ER (XR/XT) 180 mg 180 mg PO DAILY 90 Days #90 12/20/17 08/03/19 History capsule,extended release 24 hr, controlled escitalopram 10 mg tablet 10 mg PO DAILY 30 Days #30 12/20/17 08/03/19 History hydrocodone 5 mg-acetaminophen 325 5 mg PO Q6H PRN 8 Days #30 12/20/17 08/03/19 History mg tablet nitroglycerin 0.4 mg sublingual 0.4 mg SUBLINGUAL Q5M PRN 12/20/17 08/03/19 History tablet pantoprazole 40 mg tablet,delayed 40 mg PO DAILY 30 Days #30 12/20/17 08/03/19 History release ranolazine ER 500 mg 500 mg PO BID 90 Days #180 12/20/17 08/03/19 History tablet,extended release,12 hr tizanidine 4 mg tablet 4 mg PO TID PRN 30 Days #60 12/20/17 08/04/19 History topiramate 100 mg tablet 100 mg PO DAILY 30 Days #60 12/20/17 08/03/19 History Tramadol HCl [Tramadol 50mg 1 tab PO Q6HP PRN 02/09/19 08/04/19 History Tab] azaTHIOprine [Azathioprine] 50 mg PO BID 02/09/19 08/03/19 History dilTIAZem HCl [Cartia Xt] 240 mg PO HS 02/09/19 08/03/19 History Atorvastatin Calcium [Atorvastatin 40 mg PO HS 08/04/19 08/04/19 History 40mg Tab] Allergies Allergy/AdvReac Type Severity Reaction Status Date / Time No Known Allergies Allergy Verified 12/20/17 18:53 Review of Systems - *Cardiovascular Reports chest pain, Reports shortness of breath with activity - *Respiratory Reports shortness of breath with activity - *Gastrointestinal Denies abdominal pain, Denies nausea, Denies vomiting - *Genitourinary Denies blood in urine - *Musculoskeletal Denies joint pain, Denies back pain - *Neurologic Denies fainting, Denies tingling - Psychiatric Reports depression Exam Vital signs and Labs for Last 24 Hours: Temp Pulse Resp BP Pulse Ox 98.0 F 74 12 110/51 L 100 08/04/19 04:00 08/04/19 06:00 08/04/19 06:00 08/04/19 06:00 08/04/19 06:00 Laboratory Results - last 24 hr 08/03/19 08:03: Sodium 139, Potassium 4.1, Chloride 105, Carbon Dioxide 22, Anion Gap 16.1 H, BUN 10, Creatinine 0.93, Estimated Creat Clear 73, Estimated GFR 62, Est GFR ( Amer) 75, Glucose 157 H, Calcium 9.3, Troponin I 61.54 H 08/03/19 08:03: B-Natriuretic Peptide 177 H 08/03/19 08:27: Specimen Source Left radial, O2 % 28, ABG pH 7.31 L, ABG pCO2 33.4 L, ABG pO2 109.2 H, ABG HCO3 16.6 L, ABG Total CO2 17.6 L, ABG O2 Saturation 98, ABG Base Excess -9.6 L, George Test Acceptable 08/03/19 08:45: PT 10.2, INR 0.98, APTT 28.2 08/03/19 09:28: POC Glucose 178 H 08/03/19 13:35: Activated Clotting Time 352 H* 08/04/19 05:05: WBC 14.1 H D, RBC 3.09 L, Hgb 10.6 L D, Hct 33.5 L, MCV 108.4 H, MCH 34.2 H, MCHC 31.5 L, RDW 14.3, Plt Count 242, MPV 7.8, Neut % (Auto) 80.8 H, Lymph % (Auto) 10.8, [place] % (Auto) 7.4, Eos % (Auto) 0.8, Baso % (Auto) 0.2, Neut # (Auto) 11.4 H, Lymph # (Auto) 1.5, [place] # (Auto) 1.0, Eos # (Auto) 0.1, Baso # (Auto) 0.0 08/04/19 05:05: Sodium 141, Potassium 3.6, Chloride 110 H, Carbon Dioxide 19 L, Anion Gap 15.6 H, BUN 11, Creatinine 0.92, Estimated Creat Clear 76, Estimated GFR 63, Est GFR ( Amer) 76, Glucose 138 H, Calcium 8.6, Total Bilirubin 1.0, AST 199 H, ALT 36, Alkaline Phosphatase 61, Total Protein 6.8, Albumin 3.0 L, Globulin 3.8 H, Albumin/Globulin Ratio 0.8 L, Triglycerides 73, Cholesterol 132 L, LDL Cholesterol 77, VLDL Cholesterol 15, HDL Cholesterol 40, Cholesterol/ HDL Ratio 3.3 I & O for Last 24 hours: Intake & Output 08/01/19 08/02/19 08/03/19 08/04/19 12:59 12:59 11:59 11:59 Intake Total 706 / 706 Balance 706 / 706 Weight 160 lb 3.994 oz - *Routine HEENT Exam Head: Present: normocephalic Eye: Present: EOMI, PERRL ENT: Present: mucous membranes moist - *Routine Neck Exam Present: supple. Absent: JVD, carotid bruit - *Routine Respiratory Exam Present: CTA bilaterally. Absent: accessory muscle use, rales, rhonchi, wheezes - *Routine Cardiovascular Exam Present: RRR. Absent: murmur, gallop, rubs - *Routine Abdominal Exam Present: soft. Absent: tenderness, distended, guarding - *Routine Extremities Exam Absent: edema, calf tenderness - *Routine Neurological Exam Present: alert, oriented X3, moving all extremities Assessment and Plan (1) Non-ST elevation [place] (NSTEMI) Current visit: Yes Status: Acute Category: Medical Code(s): I21.4 - Non-ST elevation (NSTEMI) myocardial infarction (2) Coronary artery disease Current visit: Yes Status: Acute Category: Medical Code(s): I25.10 - Atherosclerotic heart disease of [place] coronary artery without angina pectoris (3) Hypertension Current visit: Yes Status: Acute Category: Medical Code(s): I10 - Essential (primary) hypertension (4) Hyperlipidemia Current visit: Yes Status: Acute Category: Medical Code(s): E78.5 - Hyperlipidemia, unspecified (5) History of coronary artery bypass graft Current visit: Yes Status: Acute Category: Surgical Code(s): Z95.1 - Presence of aortocoronary bypass graft - Assessment and plan all Dx Assessment and Plan for all problems:: 1. Continue ASA 81 mg daily and brilinta 90 mg BID for one year due to JUDD to L Main, LAD and RCA. 2. Echo ordered this AM. 3. Continue CCB for now due to history of HHD/diastolic dysfunction (BP well controlled at this time), but may change to alternative meds if echo shows reduced EF. 4. Add statin with LDL goal <70.
--- NOTE | 2019-08-04 15:58 | Electrocardiograph Report ---
APPROVED REPORT Exam: Resting ECG HR:66 bpm ECG Measurements Heart Rate 66 AXES [place] 140 P 62 QRSd 100 QRS 54 QT 502 T39 QTc 526 <Conclusion> Normal sinus rhythm NDST-T Changes Prolonged QT Abnormal ECG Electronically signed by : Cedrick Stanton, 08/04/2019 15:57:40
--- NOTE | 2019-08-04 17:14 | Electrocardiograph Report ---
APPROVED REPORT Exam: Resting ECG HR:74 bpm ECG Measurements Heart Rate 74 AXES [place] 142 P 61 QRSd 98 QRS 49 QT 452 T55 QTc 501 <Conclusion> Age and gender specific ECG analysis Normal sinus rhythm RSR' or QR pattern in V1 suggests right ventricular conduction delay Minimal voltage criteria for LVH, may be normal variant Inferior infarct, possibly acute Prolonged QT ACUTE AL Consider right ventricular involvement in acute inferior infarct Abnormal ECG Electronically signed by : Bharat Webb, 08/04/2019 17:13:19
--- NOTE | 2019-08-04 17:14 | Electrocardiograph Report ---
APPROVED REPORT Exam: Resting ECG HR:77 bpm ECG Measurements Heart Rate 77 AXES [place] 142 P 71 QRSd 98 QRS 73 QT 442 T51 QTc 500 <Conclusion> Normal sinus rhythm RSR' or QR pattern in V1 suggests right ventricular conduction delay Nonspecific ST abnormality Prolonged QT Abnormal ECG Electronically signed by : Bharat Webb, 08/04/2019 17:13:46
--- NOTE | 2019-08-04 17:14 | Electrocardiograph Report ---
APPROVED REPORT Exam: Resting ECG HR:65 bpm ECG Measurements Heart Rate 65 AXES RI 146 P 63 QRSd 98 QRS 60 QT 494 T68 QTc 513 <Conclusion> Age and gender specific ECG analysis Normal sinus rhythm RSR' or QR pattern in V1 suggests right ventricular conduction delay ST elevation, consider inferior injury or acute infarct Prolonged QT ACUTE [place] Abnormal ECG Electronically signed by : Bharat Webb, 08/04/2019 17:13:32
--- NOTE | 2019-08-04 17:14 | Electrocardiograph Report ---
APPROVED REPORT Exam: Resting ECG HR:75 bpm ECG Measurements Heart Rate 75 AXES MS 144 P 75 QRSd 96 QRS 73 QT 444 T47 QTc 495 <Conclusion> Age and gender specific ECG analysis Normal sinus rhythm RSR' or QR pattern in V1 suggests right ventricular conduction delay ST elevation, consider inferior injury or acute infarct Prolonged QT ACUTE [place] Consider right ventricular involvement in acute inferior infarct Abnormal ECG Electronically signed by : Bharat Webb, 08/04/2019 17:13:43
--- NOTE | 2019-08-04 19:29 | Cardiology Report ---
APPROVED REPORT EXAM: Comprehensive 2D, Doppler, and color-flow Echocardiogram Epidemiologist: Lizzie Spence RVT Ht: 5 ft 4 in Wt: 160lbs BSA: 1.78 BP: 134/75 mmHg Indications: NSTEMI, CABG X 5, CHF, LUPUS, Chest Pain, Hyperlipidemia, Hypertension 2D Dimensions LVOT 1.74 cm (M/F) 1.5-2.5 M-Mode Dimensions RVDd 1.87 cm (0.9-2.6)LA Diam 3.67 cm (1.9-4.0) LVDd 4.58 cm (3.5-5.7)Ao Diam 1.72 cm (2.0-3.7) LVDs 3.38 cm (3.5-5.7)AV Cusp 1.87 cm (1.5-2.6) IVSd 1.08 cm (0.6-1.1)PWd 0.67 cm (0.6-1.1) EF (Teich) 51.40% FS 26.20% EDV (Teich) 96.30 mLESV (Teich) 46.80 mL LV Diastology E/A Ratio 1.25 Mitral Valve MV A Velocity 60.00 (40-130 cm/s) Left Ventricle Left atrium is mildly enlarged, left ventricle is normal size, mild concentric left ventricular hypertrophy, visually estimated ejection fraction 45%, there is mild hypokinesis involving the distal septum, anterior apical wall. Inferior basal wall is markedly hypokinetic. Grade 1 diastolic dysfunction seen without tissue Doppler evidence of raise left atrial pressure. Right Ventricle Right atrium and right ventricular normal size and contractility. Aortic Valve Aortic valve is thickened and calcified leaflet continue to display good mobility, there is no aortic stenosis or aortic insufficiency. Mitral Valve Mitral valve is grossly normal, there is mild mitral regurgitation. Tricuspid Valve Tricuspid valve is grossly normal, there is mild tricuspid regurgitation. Pulmonic Valve Pulmonic valve is grossly normal, there is no pulmonic stenosis or pulmonic insufficiency. Great Vessels Aortic root is normal size. Pericardium No significant pericardial effusion noted. Conclusion 1. Mildly enlarged left atrium, normal left ventricular size, mild concentric left ventricular hypertrophy, visually estimated ejection fraction 45% with multiple segmental wall motion abnormality described above, grade 1 diastolic dysfunction seen without tissue Doppler evidence of raise left atrial pressure. 2. Mild mitral and tricuspid regurgitation. 3. No significant pericardial effusion noted. Electronically signed by : Imtiaz Gibson, 08/04/2019 19:28:40
--- NOTE | 2019-08-05 07:38 | Progress Note ---
Internal Medicine - PN: Subj *Date: 08/05/19 *Time: 07:36 Interval history: Patient developed shortness of breath yesterday during the day. Repeat chest x- ray did not reveal any findings. Echocardiogram is revealed an ejection fraction 45% area patient remains on IV fluids of lactated Ringer's 100 mL's per hour. Her dyspnea has been relieved somewhat with the application of supplemental oxygen. She is also had some mild chest heaviness. She endorses lightheadedness when getting out of bed. Exam Vital signs and Labs for Last 24 Hours: Temp Pulse Resp BP Pulse Ox 98.3 F 78 26 H 100/48 L 96 08/05/19 04:00 08/05/19 06:00 08/05/19 06:00 08/05/19 06:00 08/05/19 06:00 Laboratory Results - last 24 hr 08/04/19 05:05: Magnesium 2.1 I & O for Last 24 hours: Intake & Output 08/02/19 08/03/19 08/04/19 08/05/19 12:59 11:59 11:59 11:59 Intake Total 706 / 706 707 / 707 Output Total 350 / 350 Balance 706 / 706 357 / 357 Weight 160 lb 3.994 oz 160 lb - Constitutional no acute distress - *Routine Respiratory Exam Present: CTA bilaterally - *Routine Cardiovascular Exam Present: RRR, Normal S1, Normal S2 - *Routine Abdominal Exam Present: soft, normoactive bowel sounds. Absent: tenderness, distended - *Routine Extremities Exam Absent: edema Assessment and Plan (1) Non-ST elevation [place] (NSTEMI) Current visit: Yes Status: Acute Category: Medical Code(s): I21.4 - Non-ST elevation (NSTEMI) myocardial infarction (2) Coronary artery disease Current visit: Yes Status: Acute Category: Medical Code(s): I25.10 - Atherosclerotic heart disease of [place] coronary artery without angina pectoris (3) Hypertension Current visit: Yes Status: Acute Category: Medical Code(s): I10 - Essential (primary) hypertension (4) Hyperlipidemia Current visit: Yes Status: Acute Category: Medical Code(s): E78.5 - Hyperlipidemia, unspecified (5) History of coronary artery bypass graft Current visit: Yes Status: Acute Category: Surgical Code(s): Z95.1 - Presence of aortocoronary bypass graft - Assessment and plan all Dx Assessment and Plan for all problems:: 1. DC Brilinta due to shortness of breath and start Plavix 2. Patient will need addition of NIURKA inhibitor once her blood pressure allows.
--- NOTE | 2019-08-05 07:38 | Progress Note ---
Subjective Date: 08/05/19 Time: 07:35 Principal diagnosis: NSTEMI Interval history: 59 yo BF in bed in NAD. No chest pain but still complains of chest soreness and SOA despite unremarkable CXR. Echo shows LVEF of 45% with multiple segmental wall motion abnormalities. Telemetry shows sinus rhythm without significant arrhythmias. Appears more alert today. Exam Vital signs and Labs for Last 24 Hours: Temp Pulse Resp BP Pulse Ox 98.3 F 78 26 H 100/48 L 96 08/05/19 04:00 08/05/19 06:00 08/05/19 06:00 08/05/19 06:00 08/05/19 06:00 Laboratory Results - last 24 hr 08/04/19 05:05: Magnesium 2.1 I & O for Last 24 hours: Intake & Output 08/02/19 08/03/19 08/04/19 08/05/19 12:59 11:59 11:59 11:59 Intake Total 706 / 706 707 / 707 Output Total 350 / 350 Balance 706 / 706 357 / 357 Weight 160 lb 3.994 oz 160 lb - *Routine Respiratory Exam Present: rales, rhonchi. Absent: accessory muscle use, wheezes - *Routine Cardiovascular Exam Present: RRR. Absent: murmur, gallop, rubs - *Routine Extremities Exam Absent: edema, calf tenderness - *Routine Neurological Exam Present: alert, oriented X3, moving all extremities Progress Note: A&P (1) Non-ST elevation [place] (NSTEMI) Status: Acute Current Visit: Yes (2) Coronary artery disease Status: Acute Current Visit: Yes (3) Hypertension Status: Acute Current Visit: Yes (4) Hyperlipidemia Status: Acute Current Visit: Yes (5) History of coronary artery bypass graft Status: Acute Current Visit: Yes (6) Ischemic cardiomyopathy Status: Acute Current Visit: Yes Assessment and Plan for All Diagnoses:: 1. Ischemic cardiomyopathy with LVEF of 45% and multiple segmental wall motion abnormalities. Discussed with Dr. Walden, will stop metoprolol and start lisinopril 2.5 mg daily due to more benefit post RI with NIURKA/ARB in context of cardiomyopathy/remodeling. 2. SOA, possibly related to brilinta as no prior history of SOA and CXR negative for CHF. Will switch to plavix. Incentive spirometry ordered. 3. Continue to monitor for arrhythmias. Rate related IVCD noted. 4. Ambulate with assistance
[2019-08-05 11:58] LABS: Basophils % 0.2 % (0.1-2.0); Eosinophils # 0.2 K/mm3 (0.0-0.4); Eosinophils % 1.7 % (0.1-12.0); Hematocrit 29.4 % (37.0-47.0); Hemoglobin 9.4 g/dL (12.2-16.2); Lymphocytes # 1.3 K/mm3 (0.7-4.5); Mean Corpuscular HGB Conc 32.1 g/dL (31.8-35.4); Mean Corpuscular Volume 105.8 fl (81-99); Mean Platelet Volume 7.6 fl (7.4-10.4); Monocytes # 0.7 K/mm3 (0.1-1.0); Monocytes % 4.9 % (1.7-9.3); Neutrophils # 12.3 K/mm3 (1.8-7.8); Neutrophils % 84.2 % (37.0-80.0); Platelet Count 226 K/mm3 (142-424); Red Blood Count 2.78 M/mm3 (4.20-5.40); Red Cell Distribution Width 14.2 % (11.5-17.5); White Blood Count 14.6 K/mm3 (4.8-10.8)
[2019-08-05 12:16] LABS: Calcium 8.3 mg/dL (8.5-10.1)
[2019-08-05 16:52] LABS: Basophils % 0.2 % (0.1-2.0); Eosinophils # 0.3 K/mm3 (0.0-0.4); Hematocrit 28.2 % (37.0-47.0); Hemoglobin 9.2 g/dL (12.2-16.2); Lymphocytes # 1.5 K/mm3 (0.7-4.5); Lymphocytes % 11.9 % (10-50); Mean Corpuscular HGB Conc 32.6 g/dL (31.8-35.4); Mean Corpuscular Volume 103.5 fl (81-99); Mean Platelet Volume 7.9 fl (7.4-10.4); Monocytes # 0.7 K/mm3 (0.1-1.0); Monocytes % 5.1 % (1.7-9.3); Neutrophils # 10.2 K/mm3 (1.8-7.8); Neutrophils % 80.8 % (37.0-80.0); Platelet Count 216 K/mm3 (142-424); Red Blood Count 2.73 M/mm3 (4.20-5.40); Red Cell Distribution Width 14.1 % (11.5-17.5); White Blood Count 12.6 K/mm3 (4.8-10.8)
--- NOTE | 2019-08-05 16:57 | Electrocardiograph Report ---
APPROVED REPORT Exam: Resting ECG HR:60 bpm ECG Measurements Heart Rate 60 AXES QRSd 136 QRS 91 QT 506 T-20 QTc 506 <Conclusion> Wide QRS rhythm Rightward axis Nonspecific intraventricular block Cannot rule out Septal infarct, age undetermined T wave abnormality, consider inferior ischemia Abnormal ECG Electronically signed by : Cedrick Stanton, 08/05/2019 16:56:39
--- NOTE | 2019-08-05 16:58 | Electrocardiograph Report ---
APPROVED REPORT Exam: Resting ECG HR:56 bpm ECG Measurements Heart Rate 56 AXES QRSd 144 QRS 91 QT 538 T-18 QTc 519 <Conclusion> Wide QRS rhythm Rightward axis Left bundle branch block Abnormal ECG Electronically signed by : Cedrick Stanton, 08/05/2019 16:57:26
[2019-08-06 06:32] LABS: Anion Gap 17.7 mEq/L (5-15); Calcium 8.1 mg/dL (8.5-10.1)
--- NOTE | 2019-08-06 07:08 | Progress Note ---
Internal Medicine - PN: Subj *Date: 08/06/19 *Time: 07:05 Interval history: Over the last 24 hours patient is having increasing episodes of shortness of breath that are partially relieved with use of supplemental oxygen. She is using incentive spirometry. Nursing staff reports patient reported a sensation of wheezing overnight although on nurse assessment there was no audible wheezing. The chest discomfort the patient has been having is improving. Metoprolol was discontinued yesterday and patient was started on low-dose lisinopril. Patient has been on fluid since yesterday afternoon due to her hypotension Exam Vital signs and Labs for Last 24 Hours: Temp Pulse Resp BP Pulse Ox 98.6 F 63 34 H 118/39 L 96 08/06/19 04:00 08/06/19 06:00 08/06/19 06:00 08/06/19 06:00 08/06/19 06:00 Laboratory Results - last 24 hr 08/05/19 11:42: WBC 14.6 H, RBC 2.78 L, Hgb 9.4 L, Hct 29.4 L, MCV 105.8 H, MCH 33.9 H, MCHC 32.1, RDW 14.2, Plt Count 226, MPV 7.6, Neut % (Auto) 84.2 H, Lymph % (Auto) 9.0 L, [place] % (Auto) 4.9, Eos % (Auto) 1.7, Baso % (Auto) 0.2, Neut # (Auto) 12.3 H, Lymph # (Auto) 1.3, [place] # (Auto) 0.7, Eos # (Auto) 0.2, Baso # (Auto) 0.0 08/05/19 11:42: Sodium 139, Potassium 4.0, Chloride 109 H, Carbon Dioxide 20 L, Anion Gap 14.0, BUN 16 D, Creatinine 1.17 H D, Estimated Creat Clear 60, Estimated GFR 48 L, Est GFR ( Amer) 57 L D, Glucose 145 H, Calcium 8.3 L 08/05/19 12:58: Lactate 1.0 08/05/19 16:43: WBC 12.6 H, RBC 2.73 L, Hgb 9.2 L, Hct 28.2 L, MCV 103.5 H, MCH 33.7 H, MCHC 32.6, RDW 14.1, Plt Count 216, MPV 7.9, Neut % (Auto) 80.8 H, Lymph % (Auto) 11.9, [place] % (Auto) 5.1, Eos % (Auto) 2.0, Baso % (Auto) 0.2, Neut # (Auto) 10.2 H, Lymph # (Auto) 1.5, [place] # (Auto) 0.7, Eos # (Auto) 0.3, Baso # (Auto) 0.0 08/06/19 05:44: Sodium 141, Potassium 3.7, Chloride 109 H, Carbon Dioxide 18 L, Anion Gap 17.7 H, BUN 19 H, Creatinine 1.15 H, Estimated Creat Clear 61, Estimated GFR 48 L, Est GFR ( Amer) 59, Glucose 138 H, Calcium 8.1 L I & O for Last 24 hours: Intake & Output 08/03/19 08/04/19 08/05/19 08/06/19 11:59 11:59 11:59 11:59 Intake Total 706 / 706 707 / 707 2509 / 2509 Output Total 350 / 350 Balance 706 / 706 357 / 357 2509 / 2509 Weight 160 lb 3.994 oz 160 lb Narrative: Patient looks uncomfortable and is tachypneic. Lungs have crackles bilaterally. Heart has a regular rate and rhythm. Abdomen is soft and nontender. Lower extremities are without edema. Assessment and Plan (1) Non-ST elevation [place] (NSTEMI) Current visit: Yes Status: Acute Category: Medical Code(s): I21.4 - Non-ST elevation (NSTEMI) myocardial infarction (2) Coronary artery disease Current visit: Yes Status: Acute Category: Medical Code(s): I25.10 - Atherosclerotic heart disease of [place] coronary artery without angina pectoris (3) Hypertension Current visit: Yes Status: Acute Category: Medical Code(s): I10 - Essential (primary) hypertension (4) Hyperlipidemia Current visit: Yes Status: Acute Category: Medical Code(s): E78.5 - Hyperlipidemia, unspecified (5) History of coronary artery bypass graft Current visit: Yes Status: Acute Category: Surgical Code(s): Z95.1 - Presence of aortocoronary bypass graft (6) Ischemic cardiomyopathy Current visit: Yes Status: Acute Category: Medical Code(s): I25.5 - Ischemic cardiomyopathy (7) History of Hodgkin's lymphoma Current visit: Yes Status: Acute Category: Medical Code(s): Z85.71 - Personal history of Hodgkin lymphoma (8) Acute systolic congestive heart failure Current visit: Yes Status: Acute Category: Medical Code(s): I50.21 - Acute systolic (congestive) heart failure - Assessment and plan all Dx Assessment and Plan for all problems:: With patient's ischemic cardiomyopathy and LV dysfunction I believe she is developed some congestive heart failure from being fluid overloaded. Patient's blood pressures have started to rise she will she will be given a dose of Lasix 40 mg IV. I have asked her to reapply the supplemental oxygen as this helps relieves her dyspnea.
--- NOTE | 2019-08-06 09:11 | Progress Note ---
Subjective Date: 08/06/19 Time: 09:05 Principal diagnosis: NSTEMI Interval history: This is a 59-year-old black female who was admitted to the hospital and found to have a non-STEMI. The patient had stenting to the left main extending into the LAD as well as stenting to the right coronary artery. She has an ejection fraction of 45% with multiple segmental wall motion abnormalities. The patient denies any chest pain or pressure this morning. She is still complaining of shortness of breath. Her Brilinta was switched over to Plavix yesterday to see if this would improve her shortness of breath. She states that she is still really short of breath today with exertion. She states it does improve with rest. It is somewhat better than yesterday but still pretty bad when she gets up and moves around. She denies any fever, chills, nausea, vomiting, diarrhea. Exam Vital signs and Labs for Last 24 Hours: Temp Pulse Resp BP Pulse Ox 98.4 F 63 34 H 118/39 L 95 08/06/19 07:26 08/06/19 06:00 08/06/19 06:00 08/06/19 06:00 08/06/19 08:00 Laboratory Results - last 24 hr 08/05/19 11:42: WBC 14.6 H, RBC 2.78 L, Hgb 9.4 L, Hct 29.4 L, MCV 105.8 H, MCH 33.9 H, MCHC 32.1, RDW 14.2, Plt Count 226, MPV 7.6, Neut % (Auto) 84.2 H, Lymph % (Auto) 9.0 L, [place] % (Auto) 4.9, Eos % (Auto) 1.7, Baso % (Auto) 0.2, Neut # (Auto) 12.3 H, Lymph # (Auto) 1.3, [place] # (Auto) 0.7, Eos # (Auto) 0.2, Baso # (Auto) 0.0 08/05/19 11:42: Sodium 139, Potassium 4.0, Chloride 109 H, Carbon Dioxide 20 L, Anion Gap 14.0, BUN 16 D, Creatinine 1.17 H D, Estimated Creat Clear 60, Estimated GFR 48 L, Est GFR ( Amer) 57 L D, Glucose 145 H, Calcium 8.3 L 08/05/19 12:58: Lactate 1.0 08/05/19 16:43: WBC 12.6 H, RBC 2.73 L, Hgb 9.2 L, Hct 28.2 L, MCV 103.5 H, MCH 33.7 H, MCHC 32.6, RDW 14.1, Plt Count 216, MPV 7.9, Neut % (Auto) 80.8 H, Lymph % (Auto) 11.9, [place] % (Auto) 5.1, Eos % (Auto) 2.0, Baso % (Auto) 0.2, Neut # (Auto) 10.2 H, Lymph # (Auto) 1.5, [place] # (Auto) 0.7, Eos # (Auto) 0.3, Baso # (Auto) 0.0 08/06/19 05:44: Sodium 141, Potassium 3.7, Chloride 109 H, Carbon Dioxide 18 L, Anion Gap 17.7 H, BUN 19 H, Creatinine 1.15 H, Estimated Creat Clear 61, Estimated GFR 48 L, Est GFR ( Amer) 59, Glucose 138 H, Calcium 8.1 L I & O for Last 24 hours: Intake & Output 08/03/19 08/04/19 08/05/19 08/06/19 23:59 23:59 23:59 23:59 Intake Total 786 / 786 1906 / 2516 1430 / 1430 Output Total 350 / 350 Balance 786 / 786 1556 / 2166 1430 / 1430 Weight 160 lb 3.994 oz 160 lb 165 lb 3 oz Narrative: Her telemetry strip is sinus rhythm with a rate of 66. - Constitutional no acute distress, average body habitus - *Routine HEENT Exam Head: Present: normocephalic, atraumatic Eye: Present: EOMI, PERRL ENT: Present: mucous membranes moist - *Routine Neck Exam Present: supple, full ROM. Absent: JVD, carotid bruit, lymphadenopathy - *Routine Respiratory Exam Present: CTA bilaterally - *Routine Cardiovascular Exam Present: RRR, Normal S1, Normal S2. Absent: murmur - *Routine Abdominal Exam Present: soft, normoactive bowel sounds. Absent: tenderness, distended - *Routine Extremities Exam Present: full ROM, pulses intact, normal capillary refill. Absent: cyanosis, clubbing, edema - *Routine Skin Exam Present: intact, warm. Absent: erythema, rash - *Routine Neurological Exam Present: alert, oriented X3, CN II-XII intact - Detailed Eye Exam Eyelids: Left normal inspection Progress Note: A&P (1) Non-ST elevation [place] (NSTEMI) Status: Acute Current Visit: Yes (2) Coronary artery disease Status: Acute Current Visit: Yes (3) Hypertension Status: Acute Current Visit: Yes (4) Hyperlipidemia Status: Acute Current Visit: Yes (5) History of coronary artery bypass graft Status: Acute Current Visit: Yes (6) Ischemic cardiomyopathy Status: Acute Current Visit: Yes (7) History of Hodgkin's lymphoma Status: Acute Current Visit: Yes (8) Acute systolic congestive heart failure Status: Acute Current Visit: Yes Assessment and Plan for All Diagnoses:: Plan: 1. The patient was admitted to the hospital for non-STEMI. She did have stenting to the left main extending into the LAD. She also had stenting to the right coronary artery. She was initially on Brilinta and aspirin for dual antiplatelet therapy, but this was switched over to aspirin and Plavix for dual antiplatelet therapy. 2. The patient was started on lisinopril 2.5 mg p.o. daily. She did have some hypotension with this medication yesterday, but her blood pressure is a little higher today than it was yesterday. While I am standing in the room her systoli c blood pressure is 126. We will continue the lisinopril 2.5 mg p.o. daily at this time. 3. We will continue to hold beta-katerina at this time due to her blood pressure and heart rate. 4. The patient is still complaining of shortness of breath today with exertion. It does improve with rest. She states that is somewhat better than yesterday but is still pretty bad at times. We will give the patient some Lasix to see if this helps with her shortness of breath. Given her cardiomyopathy she will likely need to be on a small dose of a diuretic to keep her out of pulmonary edema. 5. Her blood pressure is acceptable. 6. Her LDL goal is less than 55. Her LDL is 77. Continue statin. 7. The patient needs aggressive risk factor modification. 8. Further recommendations will be made pending the patient's response to treatment. Thank you for the opportunity to help participate in the care of this patient.
[2019-08-07 06:16] LABS: Anion Gap 14.4 mEq/L (5-15); Calcium 8.4 mg/dL (8.5-10.1)
[2019-08-07 06:38] LABS: Hematocrit 27.8 % (37.0-47.0); Hemoglobin 8.5 g/dL (12.2-16.2); Mean Corpuscular HGB Conc 30.4 g/dL (31.8-35.4); Mean Corpuscular Volume 105.7 fl (81-99); Mean Platelet Volume 7.7 fl (7.4-10.4); Platelet Count 286 K/mm3 (142-424); Red Blood Count 2.62 M/mm3 (4.20-5.40); Red Cell Distribution Width 15.2 % (11.5-17.5)
[2019-08-07 06:39] LABS: Basophils % 0.2 % (0.1-2.0); Eosinophils # 0.1 K/mm3 (0.0-0.4); Eosinophils % 0.5 % (0.1-12.0); Lymphocytes # 1.2 K/mm3 (0.7-4.5); Lymphocytes % 13.2 % (10-50); Monocytes # 0.9 K/mm3 (0.1-1.0); Monocytes % 7.8 % (1.7-9.3); Neutrophils # 8.6 K/mm3 (1.8-7.8); Neutrophils % 78.4 % (37.0-80.0)
--- NOTE | 2019-08-07 07:17 | Progress Note ---
Internal Medicine - PN: Subj *Date: 08/07/19 *Time: 07:14 Interval history: Patient continues to have episodes of intense dyspnea, especially during and after ambulation. Patient herself notes she had some improvement with the Lasix. She has endorsed to the nurses a sensation of wheezing and her night nurse reports that she did hear a little bit of wheezing on evaluation. Patient tells me she previously was seeing a planer operator / grader although she does not know any specific diagnosis she was given other than "almost COPD". Patient denies blood in her urine or stool. There have been no signs of active bleeding Exam Vital signs and Labs for Last 24 Hours: Temp Pulse Resp BP Pulse Ox 98.1 F 75 32 H 149/62 H 94 L 08/07/19 03:00 08/07/19 06:00 08/07/19 06:00 08/07/19 06:00 08/07/19 06:00 Laboratory Results - last 24 hr 08/07/19 05:54: WBC 11.0 H, RBC 2.62 L, Hgb 8.5 L, Hct 27.8 L, MCV 105.7 H, MCH 32.2 H, MCHC 30.4 L, RDW 15.2, Plt Count 286 D, MPV 7.7, Neut % (Auto) 78.4, Lymph % (Auto) 13.2, [place] % (Auto) 7.8, Eos % (Auto) 0.5, Baso % (Auto) 0.2, Neut # (Auto) 8.6 H, Lymph # (Auto) 1.2, [place] # (Auto) 0.9, Eos # (Auto) 0.1, Baso # (Auto) 0.0 08/07/19 05:54: Sodium 139, Potassium 3.4 L, Chloride 108 H, Carbon Dioxide 20 L , Anion Gap 14.4, BUN 18, Creatinine 0.98, Estimated Creat Clear 73, Estimated GFR 58 L, Est GFR ( Amer) 71 D, Glucose 147 H, Calcium 8.4 L I & O for Last 24 hours: Intake & Output 08/04/19 08/05/19 08/06/19 08/07/19 11:59 11:59 11:59 11:59 Intake Total 706 / 706 707 / 707 2869 / 2869 360 / 360 Output Total 350 / 350 950 / 950 Balance 706 / 706 357 / 357 2869 / 2869 -590 / -590 Weight 160 lb 3.994 oz 160 lb 165 lb 3 oz 162 lb 7 oz Narrative: Weight is noted to be down over the last 24 hours When I entered the room patient looks mildly distressed with increased work of breathing although respirations are shallow. Heart has a regular rate and rhythm. Lungs have improved from yesterday with only barely audible crackles at the right base and questionable crackles at the left base. No wheezing is heard. Inspiratory effort is poor. Abdomen is soft. Lower extremities have no edema. Assessment and Plan (1) Non-ST elevation [place] (NSTEMI) Current visit: Yes Status: Acute Category: Medical Code(s): I21.4 - Non-ST elevation (NSTEMI) myocardial infarction (2) Acute systolic congestive heart failure Current visit: Yes Status: Acute Category: Medical Code(s): I50.21 - Acute systolic (congestive) heart failure (3) Coronary artery disease Current visit: Yes Status: Acute Category: Medical Code(s): I25.10 - Atherosclerotic heart disease of [place] coronary artery without angina pectoris (4) Hypertension Current visit: Yes Status: Acute Category: Medical Code(s): I10 - Essential (primary) hypertension (5) Hyperlipidemia Current visit: Yes Status: Acute Category: Medical Code(s): E78.5 - Hyperlipidemia, unspecified (6) History of coronary artery bypass graft Current visit: Yes Status: Acute Category: Surgical Code(s): Z95.1 - Presence of aortocoronary bypass graft (7) Ischemic cardiomyopathy Current visit: Yes Status: Acute Category: Medical Code(s): I25.5 - Ischemic cardiomyopathy (8) History of Hodgkin's lymphoma Current visit: Yes Status: Acute Category: Medical Code(s): Z85.71 - Personal history of Hodgkin lymphoma (9) Anemia Current visit: Yes Status: Acute Qualifiers: Anemia type: unspecified type Qualified Code(s): D64.9 - Anemia, unspecified Category: Medical Code(s): D64.9 - Anemia, unspecified - Assessment and plan all Dx Assessment and Plan for all problems:: 1. Give additional IV Lasix today. Patient will remain in stepdown for close observation. Overall blood pressures are improving 2. Patient will be ordered a PRN Xopenex neb to see if this relieves any of her dyspnea 3. Patient's hemoglobin has dropped during admission and this is likely contributing to some of patient's dyspnea. Repeat H&H this afternoon. 4. Patient will continue to use supplemental oxygen for breathlessness. Encourage use of some incentive spirometer 5. Monitor I's and O's and daily weights
--- NOTE | 2019-08-07 07:59 | Progress Note ---
Subjective Date: 08/07/19 Time: 07:56 Principal diagnosis: NSTEMI Interval history: 59 yo BF in bed. No chest pain but still with SOA with minimal activity. History of COPD per patient but hasn't seen Pulmonary in 1-2 yrs. Previously was on Singulair and albuterol inhaler as needed. Hemoglobin has drifted down about 5 points during the course of her stay without evidence of GI bleed. Discussed with Dr. Roberts and will transfuse 1 unit of blood today. Patient still with some rhonchi on exam although improved compared to Sunday. We will repeat Lasix today Exam Vital signs and Labs for Last 24 Hours: Temp Pulse Resp BP Pulse Ox 98.1 F 75 32 H 149/62 H 94 L 08/07/19 03:00 08/07/19 06:00 08/07/19 06:00 08/07/19 06:00 08/07/19 06:00 Laboratory Results - last 24 hr 08/07/19 05:54: WBC 11.0 H, RBC 2.62 L, Hgb 8.5 L, Hct 27.8 L, MCV 105.7 H, MCH 32.2 H, MCHC 30.4 L, RDW 15.2, Plt Count 286 D, MPV 7.7, Neut % (Auto) 78.4, Lymph % (Auto) 13.2, [place] % (Auto) 7.8, Eos % (Auto) 0.5, Baso % (Auto) 0.2, Neut # (Auto) 8.6 H, Lymph # (Auto) 1.2, [place] # (Auto) 0.9, Eos # (Auto) 0.1, Baso # (Auto) 0.0 08/07/19 05:54: Sodium 139, Potassium 3.4 L, Chloride 108 H, Carbon Dioxide 20 L , Anion Gap 14.4, BUN 18, Creatinine 0.98, Estimated Creat Clear 73, Estimated G FR 58 L, Est GFR ( Amer) 71 D, Glucose 147 H, Calcium 8.4 L I & O for Last 24 hours: Intake & Output 08/04/19 08/05/19 08/06/19 08/07/19 11:59 11:59 11:59 11:59 Intake Total 706 / 706 707 / 707 2869 / 2869 360 / 360 Output Total 350 / 350 950 / 950 Balance 706 / 706 357 / 357 2869 / 2869 -590 / -590 Weight 160 lb 3.994 oz 160 lb 165 lb 3 oz 162 lb 7 oz - *Routine Neck Exam Present: supple. Absent: JVD, carotid bruit - *Routine Respiratory Exam Present: rhonchi, wheezes. Absent: accessory muscle use, rales - *Routine Cardiovascular Exam Present: RRR. Absent: murmur, gallop, rubs - *Routine Extremities Exam Absent: edema, calf tenderness - *Routine Neurological Exam Present: alert, oriented X3, moving all extremities Progress Note: A&P (1) Non-ST elevation [place] (NSTEMI) Status: Acute Current Visit: Yes (2) Acute systolic congestive heart failure Status: Acute Current Visit: Yes (3) Coronary artery disease Status: Acute Current Visit: Yes (4) Hypertension Status: Acute Current Visit: Yes (5) Hyperlipidemia Status: Acute Current Visit: Yes (6) History of coronary artery bypass graft Status: Acute Current Visit: Yes (7) Ischemic cardiomyopathy Status: Acute Current Visit: Yes (8) History of Hodgkin's lymphoma Status: Acute Current Visit: Yes (9) Anemia Status: Acute Current Visit: Yes Assessment and Plan for All Diagnoses:: 1. Continue aspirin and Plavix for non-ST elevation [place] status post stenting. 2. Ischemic cardiomyopathy with EF of 45% with multiple wall motion abnormalities, will repeat Lasix today for prevention of CHF. Will increase lisinopril to 5 mg daily since blood pressure is increased. 3. Anemia, will transfuse 1 unit of blood today 4. History of COPD, nebulizer therapy started per Dr. Roberts
[2019-08-07 11:17] LABS: ABG Base Excess -7.2 mmol/L (-2.4-2.3); ABG HCO3 16.7 mmhg (22.0-26.0); ABG Oxygen Saturation 94 % (90-100); ABG PCO2 24.3 mmhg (35.0-45.0); ABG PH 7.46 mmol/L (7.35-7.45); ABG PO2 71.4 mmhg (80-100); ABG TCO2 17.5 mmhg (23-27)
[2019-08-07 11:18] LABS: Allen's Test Acceptable; Oxygen 28% %
[2019-08-07 11:45] LABS: Bilirubin,Direct 0.5 mg/dL (0.0-0.2); Bilirubin,Total 1.5 mg/dL (0.2-1.0)
[2019-08-07 11:46] LABS: Albumin Level 2.8 gm/dL (3.4-5.0); Total Protein,Serum 7.1 gm/dL (6.4-8.2)
[2019-08-07 13:09] LABS: Hematocrit 29.5 % (37.0-47.0)
--- NOTE | 2019-08-07 13:24 | Cardiology Report ---
APPROVED REPORT EXAM: Comprehensive 2D, Doppler, and color-flow Echocardiogram Judge: Lita Pollock CRT Ht: 5 ft 4 in Wt: 162lbs BSA: 1.79 BP: 85/45 mmHg Indications: recheck ef check for Pericardial eff limited exam only Left Ventricle Left atrium is mildly enlarged, left ventricle is normal size, mild concentric left ventricular hypertrophy, visually estimated ejection fraction 45 to 50%, with marked hypokinesis involving the inferior basal wall. Right Ventricle Right atrium and right ventricle mildly enlarged with normal contractility. Aortic Valve Aortic valve is thickened and calcified leaflet continue to display good mobility. Mitral Valve Mitral valve is grossly normal. Tricuspid Valve Tricuspid valve is grossly normal Pulmonic Valve Pulmonic valve is poorly visualized Great Vessels Aortic root is normal size Pericardium No significant pericardial effusion noted. Conclusion 1. Limited 2D echo performed 2. Normal left ventricular size, mild concentric left ventricular hypertrophy, visually estimated ejection fraction 45 to 50% with segmental wall motion abnormality described above 3. No significant pericardial effusion noted. Electronically signed by : Imtiaz Gibson, 08/07/2019 13:24:14
[2019-08-07 13:36] LABS: Hemoglobin 9.7 g/dL (12.2-16.2)
[2019-08-08 05:50] LABS: Basophils % 0.1 % (0.1-2.0); Eosinophils # 0.1 K/mm3 (0.0-0.4); Eosinophils % 0.5 % (0.1-12.0); Hematocrit 29.8 % (37.0-47.0); Hemoglobin 9.6 g/dL (12.2-16.2); Lymphocytes # 1.2 K/mm3 (0.7-4.5); Lymphocytes % 11.5 % (10-50); Mean Corpuscular HGB Conc 32.2 g/dL (31.8-35.4); Mean Corpuscular Volume 102.4 fl (81-99); Mean Platelet Volume 8.1 fl (7.4-10.4); Monocytes # 0.7 K/mm3 (0.1-1.0); Monocytes % 6.7 % (1.7-9.3); Neutrophils # 8.6 K/mm3 (1.8-7.8); Neutrophils % 81.2 % (37.0-80.0); Platelet Count 248 K/mm3 (142-424); Red Blood Count 2.91 M/mm3 (4.20-5.40); Red Cell Distribution Width 16.1 % (11.5-17.5); White Blood Count 10.6 K/mm3 (4.8-10.8)
[2019-08-08 06:06] LABS: Anion Gap 15.3 mEq/L (5-15); Calcium 8.5 mg/dL (8.5-10.1)
--- NOTE | 2019-08-08 07:11 | Progress Note ---
Internal Medicine - PN: Subj *Date: 08/08/19 *Time: 07:07 Interval history: Patient reports she is feeling better this morning. She has been able to ambulate out of bed with minimal if any shortness of breath. She has kept her nasal cannula in place however due to the events of yesterday were patient had labile heart rate and vital signs along with recurring episodes of shortness of breath and even developed some mild confusion. A blood gas revealed hypoxemia. Chest CT was performed to rule out pulmonary embolism. While patient had no pulmonary embolism she had some findings consistent with interstitial edema versus developing infiltrate. Patient denies fevers or chills. She was reevaluated by the cardiology service in the afternoon and patient was started on Spironolactone. Records reviewed my office yesterday shows patient has a history of asthma and previously took Singulair. She has not taken this medicine for many years. Patient also was identified and old records as being a diabetic and tells me this morning that she was a "borderline diabetic". She did receive some steroids yesterday and that is reflected in her elevated fasting sugar this morning. A1c will be ordered Exam Vital signs and Labs for Last 24 Hours: Temp Pulse Resp BP Pulse Ox 97.5 F L 57 L 21 115/60 98 08/08/19 04:00 08/08/19 05:00 08/08/19 05:34 08/08/19 05:00 08/08/19 05:00 Laboratory Results - last 24 hr 08/07/19 05:54: Total Bilirubin 1.5 H, Direct Bilirubin 0.5 H, Indirect Bilirubin 1.0 H, AST 82 H, ALT 32, Alkaline Phosphatase 66, Total Protein 7.1, Albumin 2.8 L 08/07/19 05:54: B-Natriuretic Peptide 2009 H 08/07/19 08:03: Blood Type A Negative, Antibody Screen Negative, Crossmatch (AH G) See Detail 08/07/19 08:34: Blood Type Confirm A Negative 08/07/19 11:05: Specimen Source Left radial, O2 % 28%, ABG pH 7.46 H, ABG pCO2 24.3 L, ABG pO2 71.4 L, ABG HCO3 16.7 L, ABG Total CO2 17.5 L, ABG O2 Saturation 94, ABG Base Excess -7.2 L, George Test Acceptable 08/07/19 13:04: Hgb 9.7 L D, Hct 29.5 L 08/08/19 05:27: WBC 10.6, RBC 2.91 L, Hgb 9.6 L, Hct 29.8 L, MCV 102.4 H, MCH 33.0 H, MCHC 32.2, RDW 16.1, Plt Count 248, MPV 8.1, Neut % (Auto) 81.2 H, Lymph % (Auto) 11.5, [place] % (Auto) 6.7, Eos % (Auto) 0.5, Baso % (Auto) 0.1, Neut # (Auto) 8.6 H, Lymph # (Auto) 1.2, [place] # (Auto) 0.7, Eos # (Auto) 0.1, Baso # (Auto) 0.0 08/08/19 05:27: B-Natriuretic Peptide 1510 H 08/08/19 05:27: Sodium 141, Potassium 4.3 D, Chloride 108 H, Carbon Dioxide 22, Anion Gap 15.3 H, BUN 26 H D, Creatinine 1.06 H, Estimated Creat Clear 67, Estimated GFR 53 L, Est GFR ( Amer) 64, Glucose 213 H D, Calcium 8.5 I & O for Last 24 hours: Intake & Output 08/05/19 08/06/19 08/07/19 08/08/19 11:59 11:59 11:59 11:59 Intake Total 707 / 707 2869 / 2869 970 / 970 531 / 531 Output Total 350 / 350 1350 / 1350 950 / 950 Balance 357 / 357 2869 / 2869 -380 / -380 -419 / -419 Weight 160 lb 165 lb 3 oz 162 lb 7 oz 161 lb 5 oz Microbiology Reports for the Last 24 Hours: Microbiology 08/05/19 12:58 Blood Blood Culture - Preliminary NO GROWTH AFTER 48 HOURS 08/05/19 12:58 Blood Blood Culture - Preliminary NO GROWTH AFTER 48 HOURS Narrative: Patient appears more comfortable this morning and shows no signs of respiratory distress. Lungs have improved aeration throughout all lung fountain although in the left midlung and right upper anterior lung there is a congested breath sound and expiratory wheeze. Heart has a regular rate and rhythm. There is no pedal edema Assessment and Plan (1) Non-ST elevation CT (NSTEMI) Current visit: Yes Status: Acute Category: Medical Code(s): I21.4 - Non-ST elevation (NSTEMI) myocardial infarction (2) Acute systolic congestive heart failure Current visit: Yes Status: Acute Category: Medical Code(s): I50.21 - Acute systolic (congestive) heart failure (3) Coronary artery disease Current visit: Yes Status: Acute Category: Medical Code(s): I25.10 - Atherosclerotic heart disease of [place] coronary artery without angina pectoris (4) Hypertension Current visit: Yes Status: Acute Category: Medical Code(s): I10 - Essential (primary) hypertension (5) Hyperlipidemia Current visit: Yes Status: Acute Category: Medical Code(s): E78.5 - Hyperlipidemia, unspecified (6) History of coronary artery bypass graft Current visit: Yes Status: Acute Category: Surgical Code(s): Z95.1 - Pr esence of aortocoronary bypass graft (7) Ischemic cardiomyopathy Current visit: Yes Status: Acute Category: Medical Code(s): I25.5 - Ischemic cardiomyopathy (8) History of Hodgkin's lymphoma Current visit: Yes Status: Acute Category: Medical Code(s): Z85.71 - Personal history of Hodgkin lymphoma (9) Anemia Current visit: Yes Status: Acute Qualifiers: Anemia type: unspecified type Qualified Code(s): D64.9 - Anemia, unspecif ied Category: Medical Code(s): D64.9 - Anemia, unspecified - Assessment and plan all Dx Assessment and Plan for all problems:: 1. Continue lisinopril and spironolactone. Potassium is within a normal range this morning. Repeat BMP in the morning 2. Patient to be transferred out of stepdown to [facility] bed but continue on telemetry 3. 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 Continue as needed Xopenex nebs 5. Repeat CBC in the morning due to patient's anemia 6. Encourage patient to ambulate more today and use incentive spirometer
--- NOTE | 2019-08-08 10:41 | Progress Note ---
Subjective Date: 08/08/19 Time: 10:37 Principal diagnosis: NSTEMI Interval history: 59 yo BF in bed in NAD. More alert and active today. Feeling better without chest discomfort. SOA has improved. BP controlled Telemetry is sinus yomi with occasional drops into the 30's briefly, asymptomatic. Exam Vital signs and Labs for Last 24 Hours: Temp Pulse Resp BP Pulse Ox 98.0 F 59 L 18 111/59 L 97 08/08/19 07:56 08/08/19 08:20 08/08/19 07:56 08/08/19 07:56 08/08/19 08:20 Laboratory Results - last 24 hr 08/07/19 05:54: Total Bilirubin 1.5 H, Direct Bilirubin 0.5 H, Indirect Bilirubin 1.0 H, AST 82 H, ALT 32, Alkaline Phosphatase 66, Total Protein 7.1, Albumin 2.8 L 08/07/19 05:54: B-Natriuretic Peptide 2009 H 08/07/19 08:03: Crossmatch (AHG) See Detail 08/07/19 11:05: Specimen Source Left radial, O2 % 28%, ABG pH 7.46 H, ABG pCO2 24.3 L, ABG pO2 71.4 L, ABG HCO3 16.7 L, ABG Total CO2 17.5 L, ABG O2 Saturation 94, ABG Base Excess -7.2 L, George Test Acceptable 08/07/19 13:04: Hgb 9.7 L D, Hct 29.5 L 08/08/19 05:27: WBC 10.6, RBC 2.91 L, Hgb 9.6 L, Hct 29.8 L, MCV 102.4 H, MCH 33.0 H, MCHC 32.2, RDW 16.1, Plt Count 248, MPV 8.1, Neut % (Auto) 81.2 H, Lymph % (Auto) 11.5, [place] % (Auto) 6.7, Eos % (Auto) 0.5, Baso % (Auto) 0.1, Neut # (Auto) 8.6 H, Lymph # (Auto) 1.2, [place] # (Auto) 0.7, Eos # (Auto) 0.1, Baso # (Auto) 0.0 08/08/19 05:27: B-Natriuretic Peptide 1510 H 08/08/19 05:27: Sodium 141, Potassium 4.3 D, Chloride 108 H, Carbon Dioxide 22, Anion Gap 15.3 H, BUN 26 H D, Creatinine 1.06 H, Estimated Creat Clear 67, Estimated GFR 53 L, Est GFR ( Amer) 64, Glucose 213 H D, Calcium 8.5 I & O for Last 24 hours: Intake & Output 08/05/19 08/06/19 08/07/19 08/08/19 11:59 11:59 11:59 11:59 Intake Total 707 / 707 2869 / 2869 970 / 970 771 / 771 Output Total 350 / 350 1350 / 1350 950 / 950 Balance 357 / 357 2869 / 2869 -380 / -380 -179 / -179 Weight 160 lb 165 lb 3 oz 162 lb 7 oz 161 lb 5 oz Microbiology Reports for the Last 24 Hours: Microbiology 08/05/19 12:58 Blood Blood Culture - Preliminary NO GROWTH AFTER 48 HOURS 08/05/19 12:58 Blood Blood Culture - Preliminary NO GROWTH AFTER 48 HOURS - *Routine HEENT Exam Head: Present: normocephalic Eye: Present: EOMI, PERRL ENT: Present: mucous membranes moist - *Routine Respiratory Exam Present: decreased breath sounds, crackles. Absent: accessory muscle use, rales, rhonchi, wheezes - *Routine Cardiovascular Exam Present: RRR. Absent: murmur, gallop, rubs - *Routine Extremities Exam Absent: edema, calf tenderness - *Routine Neurological Exam Present: alert, oriented X3, moving all extremities Progress Note: A&P (1) Non-ST elevation [place] (NSTEMI) Status: Acute Current Visit: Yes (2) Acute systolic congestive heart failure Status: Acute Current Visit: Yes (3) Coronary artery disease Status: Acute Current Visit: Yes (4) Hypertension Status: Acute Current Visit: Yes (5) Hyperlipidemia Status: Acute Current Visit: Yes (6) History of coronary artery bypass graft Status: Acute Current Visit: Yes (7) Ischemic cardiomyopathy Status: Acute Current Visit: Yes (8) History of Hodgkin's lymphoma Status: Acute Current Visit: Yes (9) Anemia Status: Acute Current Visit: Yes Assessment and Plan for All Diagnoses:: 1. Continue aspirin and Plavix for recent coronary stenting 2. Continue Aldactone and lisinopril for mild cardiomyopathy/CHF 3. Continue atorvastatin for hyperlipidemia 4. Patient will tentatively be discharged home tomorrow if she remains stable. 5. Follow-up in our office next week
--- NOTE | 2019-08-08 13:20 | Progress Note ---
[facility] Anest[facility] Check[facility] - Patient Identification Patient Identification: Arm Band, Verbal (Name & ) - Structural Data Admitted From: Home Planned Operative Procedure/s: Temporary transvenous pacemaker Consent for Planned Operative Procedure(s) Verified: Yes Verified Documents: Surgical Consent, History and Physical - NPO Status Verified Time NPO: 07:00 - Chart Verification Results Verified: CBC, BMP, PT, PTT, INR, ECG - Additional verifications Anesthesia Reactions: No - Airway Assessment C-Spine Mobility Assessed: Yes TMJ Mobility Assessed: Yes Dentition: Poor Dentition (missing teeth) - Neurological Assessment Level of Consciousness: Appropriate, Follows Commands, Drowsy, Lethargic Hx Seizures: No Numbness or tingling in extremities: No - Anesthesia Plan Anesthesia Risk discussed: Yes Anesthesia Plan: Verified ASA Class: III (Emergent) Anesthesia Type: [facility] History I have reviewed the patient's past medical history: Yes Medical History: Reports:: Anxiety, Cancer ([place]), Congestive Heart Failure, Depression, Hyperlipidemia, Hypertension, Migraine, Myocardial Infarction Denies:: Diabetes Mellitus Type 1, Diabetes Mellitus Type 2, Internal Pacemaker *Have you ever received a pneumonia vaccine?: Yes *Have you received a flu vaccine this season?: No Other Medical History: Reports: Arthritis Anesthesia experience/problems:: none Other Surgeries: Yes: CABG (x5), Cardiac Catheterization, Cholecystectomy, Splenectomy, Other. No: Pacemaker Amputation: No Fractures: No - *Social History Educational Level: Completed High School Smoking Status: Never smoker Alcohol Intake: current Alcohol Intake Frequency:: holidays/special occasions only Substance Use Type: denies use *Occupational Status:: unemployed *Travel in the last 8 weeks: None - Psychiatric History Pschychiatric History:: Reports:: Anxiety, Depression Family Hx:: Coronary Artery Disease
[2019-08-09 06:13] LABS: Basophils % 0.2 % (0.1-2.0); Eosinophils # 0.1 K/mm3 (0.0-0.4); Eosinophils % 1.1 % (0.1-12.0); Hemoglobin 9.3 g/dL (12.2-16.2); Lymphocytes # 1.9 K/mm3 (0.7-4.5); Mean Corpuscular HGB Conc 31.8 g/dL (31.8-35.4); Mean Corpuscular Volume 103.1 fl (81-99); Mean Platelet Volume 7.8 fl (7.4-10.4); Monocytes # 0.8 K/mm3 (0.1-1.0); Neutrophils # 6.7 K/mm3 (1.8-7.8); Neutrophils % 70.6 % (37.0-80.0); Platelet Count 280 K/mm3 (142-424); Red Blood Count 2.83 M/mm3 (4.20-5.40); White Blood Count 9.5 K/mm3 (4.8-10.8)
[2019-08-09 06:15] LABS: Hematocrit 29.2 % (37.0-47.0)
[2019-08-09 06:31] LABS: Anion Gap 18.5 mEq/L (5-15); Calcium 8.3 mg/dL (8.5-10.1)
--- NOTE | 2019-08-09 08:17 | Progress Note ---
Internal Medicine - PN: Subj *Date: 08/09/19 *Time: 08:15 Interval history: Patient reports feeling better this morning with less shortness of breath since implantation of pacemaker yesterday afternoon. Patient became bradycardic and severely dyspneic with mental status changes. Temporary pacemaker was put in followed by permanent pacemaker later on in the afternoon. Other than some chest soreness at her pacemaker site she feels well. She does note a minor cough Exam Vital signs and Labs for Last 24 Hours: Temp Pulse Resp BP Pulse Ox 98 F 60 22 110/60 97 08/09/19 04:00 08/09/19 04:00 08/09/19 04:00 08/09/19 04:00 08/09/19 04:00 Laboratory Results - last 24 hr 08/09/19 05:45: Hemoglobin A1c 6.5 08/09/19 05:45: WBC 9.5, RBC 2.83 L, Hgb 9.3 L, Hct 29.2 L, MCV 103.1 H, MCH 32.8 H, MCHC 31.8, RDW 16.0, Plt Count 280, MPV 7.8, Neut % (Auto) 70.6, Lymph % (Auto) 20.0, [place] % (Auto) 8.0, Eos % (Auto) 1.1, Baso % (Auto) 0.2, Neut # (Auto) 6.7, Lymph # (Auto) 1.9, [place] # (Auto) 0.8, Eos # (Auto) 0.1, Baso # (Auto) 0.0 08/09/19 05:45: Sodium 144, Potassium 4.5, Chloride 111 H, Carbon Dioxide 19 L, Anion Gap 18.5 H, BUN 32 H, Creatinine 0.96, Estimated Creat Clear 73, Estimated GFR 60, Est GFR ( Amer) 72, Glucose 127 H, Calcium 8.3 L I & O for Last 24 hours: Intake & Output 08/06/19 08/07/19 08/08/19 08/09/19 11:59 11:59 11:59 11:59 Intake Total 2869 / 2869 970 / 970 771 / 771 120 / 120 Output Total 1350 / 1350 950 / 950 950 / 950 Balance 2869 / 2869 -380 / -380 -179 / -179 -830 / -830 Weight 165 lb 3 oz 162 lb 7 oz 161 lb 5 oz 160 lb 3 oz Narrative: Patient appears well. There are no signs of respiratory distress. Pacemaker site is clean. Heart has a regular rate and rhythm. Lungs are overall clear with an inspiratory adventitious sounds at the right base. Extremities are without edema Assessment and Plan (1) Non-ST elevation [place] (NSTEMI) Current visit: Yes Status: Acute Category: Medical Code(s): I21.4 - Non-ST elevation (NSTEMI) myocardial infarction (2) Acute systolic congestive heart failure Current visit: Yes Status: Acute Category: Medical Code(s): I50.21 - Acute systolic (congestive) heart failure (3) Coronary artery disease Current visit: Yes Status: Acute Category: Medical Code(s): I25.10 - Atherosclerotic heart disease of [place] coronary artery without angina pectoris (4) Hypertension Current visit: Yes Status: Acute Category: Medical Code(s): I10 - Essential (primary) hypertension (5) Hyperlipidemia Current visit: Yes Status: Acute Category: Medical Code(s): E78.5 - Hyperlipidemia, unspecified (6) History of coronary artery bypass graft Current visit: Yes Status: Acute Category: Surgical Code(s): Z95.1 - Presence of aortocoronary bypass graft (7) Ischemic cardiomyopathy Current visit: Yes Status: Acute Category: Medical Code(s): I25.5 - Ischemic cardiomyopathy (8) History of Hodgkin's lymphoma Current visit: Yes Status: Acute Category: Medical Code(s): Z85.71 - Personal history of Hodgkin lymphoma (9) Anemia Current visit: Yes Status: Acute Qualifiers: Anemia type: unspecified type Qualified Code(s): D64.9 - Anemia, unspecified Category: Medical Code(s): D64.9 - Anemia, unspecified - Assessment and plan all Dx Assessment and Plan for all problems:: Patient seems to be doing better this morning. We will see how her day goes in regards to symptoms of shortness of breath and how well she is able to ambulate. It is possible she could be discharged late this afternoon.
--- NOTE | 2019-08-09 08:21 | Discharge Summary ---
General - General Admission date:: 08/03/19 Discharge date: 08/10/19 HPI HPI: 59-year-old female with known coronary artery disease and history of CABG presented to the hospital around 7 AM on August 03 after awakening at 3 AM with a throbbing chest pain that radiated up into her neck and shoulders bilaterally with associated headache. Patient states she "knew something was wrong" but was hoping discomfort would go away and when it did not she sought treatment at the emergency department. Patient underwent work-up and troponin was elevated at 61. Dr. Walden was contacted and patient was taken to the [facility]. Patient underwent left heart catheterization successful stenting. This resulted in resolution of chest pain. Overnight patient has done well. She did complain of some nausea yesterday evening and had some mild chest discomfort this morning that was relieved with pain medication Hospital Course Hospital Course: Patient was admitted to the hospital on August 03 and taken immediately to the [facility] for her non-ST elevation MO with troponin of 61. 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 Successful stenting of the left main artery extending into the proximal LAD critical disease reduced to 0% with 3 contiguous drug-eluting stents resulting in significant improvement from NAOMIE I to NAOMIE-3 flow down the creek left main LAD system Critical disease in the proximal to mid dominant right coronary artery with successful stenting of the ostial proximal mid right coronary artery critical disease reduced to 0% with 2 contiguous drug-eluting stents Preserved ejection fraction Mildly elevated LVEDP Patent saphenous vein graft supplying a small obtuse marginal artery Patient was placed on telemetry after her left heart catheterization and remained on telemetry during the remainder of hospitalization. For the first 48 hours patient would have intermittent episodes of chest tightness along with shortness of breath. Echocardiogram revealed an ejection fraction of 45% with diffuse areas of hypokinesis of the left ventricle. Patient developed worsening shortness of breath on August 06 and it was felt the patient may be fluid overloaded. She was given intravenous furosemide for diuresis with excellent response. Patient's blood pressure was watched closely as she had been hypotensive after her heart catheterization and had taken 48 hours for blood pressures to begin to rise. Patient was placed on low-dose NIURKA inhibitor. While diuresis improved shortness of breath it did not resolve completely. Patient remained dyspneic out of proportion to any findings on her exam. On the patient developed severe shortness of breath with an episode of bradycardia while traveling back and forth to the bathroom. CT angiogram was performed to rule out pulmonary embolus. CT angiogram ruled out PE but did show some areas of interstitial edema, atelectasis in the right upper lobe. Patient was encouraged to use incentive spirometer. Lasix was discontinued in favor of Spironolactone. On August 08 patient had additional episodes of bradycardia with mental status changes. Pulse rate decreased to the 30s. Decision was made to implant pacemaker at that time. On August 08 patient underwent permanent pacemaker implantation. Post procedurally her episodes of shortness of breath improved. Patient noted that she felt better. She was observed closely in kept on telemetry. I intend an appropriate heart rate. On the afternoon of August 09 patient once again became drowsy. Nursing staff reported this and raise concerns because patient was arousable but would quickly fall back to sleep. She had received a muscle relaxant that morning. This was discussed with patient on August 10 and both patient and family report patient does sleep a lot at home. She takes long naps during the day. She "sleeps hard" according to her sister. It was felt that she was likely experiencing the effects of the muscle relaxant along with her normal day-to-day routine of sleeping. When no further issues arose, patient was not short of breath on exertion and denied chest pain she was discharged home on August 10. Patient will follow-up with me at the end of the week. She will follow-up with cardiology in 1 week. Objective Vital signs: Temp Pulse Resp BP Pulse Ox 98.5 F 60 19 117/50 L 98 08/09/19 08:00 08/09/19 08:00 08/09/19 08:00 08/09/19 08:00 08/09/19 08:00 Results Labs on day of discharge: Labs from last 24 hours 08/09/19 08/09/19 08/09/19 05:45 05:45 05:45 WBC 9.5 RBC 2.83 L Hgb 9.3 L Hct 29.2 L MCV 103.1 H MCH 32.8 H MCHC 31.8 RDW 16.0 Plt Count 280 MPV 7.8 Neut % (Auto) 70.6 Lymph % (Auto) 20.0 [place] % (Auto) 8.0 Eos % (Auto) 1.1 Baso % (Auto) 0.2 Neut # (Auto) 6.7 Lymph # (Auto) 1.9 [place] # (Auto) 0.8 Eos # (Auto) 0.1 Baso # (Auto) 0.0 Sodium 144 Potassium 4.5 Chloride 111 H Carbon Dioxide 19 L Anion Gap 18.5 H BUN 32 H Creatinine 0.96 Estimated Creat Clear 73 Estimated GFR 60 Est GFR ( Amer) 72 Glucose 127 H Hemoglobin A1c 6.5 Calcium 8.3 L Preliminary micro results at discharge 08/05/19 12:58 Blood Culture - Preliminary Blood NO GROWTH AFTER 48 HOURS 08/05/19 12:58 Blood Culture - Preliminary Blood NO GROWTH AFTER 48 HOURS DS: Diagnosis - Discharge Diagnosis (1) Non-ST elevation MO (NSTEMI) Status: Acute (2) Acute systolic congestive heart failure Status: Acute (3) Coronary artery disease Status: Acute (4) Hypertension Status: Acute (5) Hyperlipidemia Status: Acute (6) History of coronary artery bypass graft Status: Acute (7) Ischemic cardiomyopathy Status: Acute (8) History of Hodgkin's lymphoma Status: Acute (9) Anemia Status: Acute Discharge Plan - Patient Discharge Instructions ACTIVITY: Continue current activity DIET: continue same diet Patient Instructions: DI for Acute Coronary Syndrome, DI for Heart Attack, High Blood Pressure (Hypertension) (Alternative Therapy), High Triglycerides, Pacemaker Insertion, DI for Cardiac Catheterization, DI for Pacemaker Insertion, MP3 (iPod) Headphones Near ICD or Pacemaker May Cause Problems, DI for Surgical Site Infection - Follow up Plan Follow up with: Logan Walden MD [Staff Physician] - 1 week Bharat Roberts MD [Primary Care Provider] - 08/15/19 Disposition: Home, Self-Long-Term Medications: Home Medications Medication Instructions Recorded Confirmed Type aspirin 325 mg tablet 325 mg PO DAILY 12/20/17 08/04/19 History escitalopram 10 mg tablet 10 mg PO DAILY 30 Days #30 12/20/17 08/03/19 History hydrocodone 5 mg-acetaminophen 325 5 mg PO Q6H PRN 8 Days #30 12/20/17 08/03/19 History mg tablet nitroglycerin 0.4 mg sublingual 0.4 mg SUBLINGUAL Q5M PRN 12/20/17 08/03/19 History tablet pantoprazole 40 mg tablet,delayed 40 mg PO DAILY 30 Days #30 12/20/17 08/03/19 History release ranolazine ER 500 mg 500 mg PO BID 90 Days #180 12/20/17 08/03/19 History tablet,extended release,12 hr tizanidine 4 mg tablet 4 mg PO TID PRN 30 Days #60 12/20/17 08/04/19 History topiramate 100 mg tablet 100 mg PO DAILY 30 Days #60 12/20/17 08/03/19 History Tramadol HCl [Tramadol 50mg 1 tab PO Q6HP PRN 02/09/19 08/04/19 History Tab] azaTHIOprine [Azathioprine] 50 mg PO BID 02/09/19 08/03/19 History Atorvastatin Calcium [Atorvastatin 40 mg PO HS 08/04/19 08/04/19 History 40mg Tab] Clopidogrel Bisulfate [Plavix 75mg 75 mg PO DAILY #30 tab 08/09/19 Rx Tab] Lisinopril [Zestril 5mg 5 mg PO DAILY #30 tab 08/09/19 Rx Tablet] Spironolactone [Aldactone 25mg 25 mg PO DAILY #30 tab 08/09/19 Rx Tab] Albuterol Sulfate [Albuterol HFA 2 puffs IH Q4HP PRN #1 inh 08/10/19 Rx Inhaler] Prescriptions/Medication Reconciliation: New Clopidogrel Bisulfate [Plavix 75mg Tab] 75 mg PO DAILY #30 tab Albuterol Sulfate [Albuterol HFA Inhaler] 2 puffs IH Q4HP PRN #1 inh PRN Reason: Shortness Of Breath Or Wheezing Spironolactone [Aldactone 25mg Tab] 25 mg PO DAILY #30 tab Lisinopril [Zestril 5mg Tablet] 5 mg PO DAILY #30 tab Continued escitalopram 10 mg tablet 10 mg PO DAILY 30 Days #30 topiramate 100 mg tablet 100 mg PO DAILY 30 Days #60 hydrocodone 5 mg-acetaminophen 325 mg tablet 5 mg PO Q6H PRN 8 Days #30 PRN Reason: pain pantoprazole 40 mg tablet,delayed release 40 mg PO DAILY 30 Days #30 ranolazine ER 500 mg tablet,extended release,12 hr 500 mg PO BID 90 Days #180 aspirin 325 mg tablet 325 mg PO DAILY nitroglycerin 0.4 mg sublingual tablet 0.4 mg SUBLINGUAL Q5M PRN PRN Reason: Chest Pain tizanidine 4 mg tablet 4 mg PO TID PRN 30 Days #60 PRN Reason: PAIN azaTHIOprine [Azathioprine] 50 mg PO BID Atorvastatin Calcium [Atorvastatin 40mg Tab] 40 mg PO HS Tramadol HCl [Tramadol 50mg Tab] 1 tab PO Q6HP PRN PRN Reason: PAIN Discontinued diltiazem ER (XR/XT) 180 mg capsule,extended release 24 hr, controlled 180 mg PO DAILY 90 Days #90 dilTIAZem HCl [Cartia Xt] 240 mg PO HS - Problem Reconciliation Problems Reviewed?: Yes
--- NOTE | 2019-08-09 18:40 | Electrocardiograph Report ---
APPROVED REPORT Exam: Resting ECG HR:32 bpm ECG Measurements Heart Rate 32 AXES QRSd 132 QRS 93 QT 694 T38 QTc 506 <Conclusion> Atrial fibrillation with slow ventricular response Rightward axis Nonspecific intraventricular block Cannot rule out Anteroseptal infarct, age undetermined Abnormal ECG Electronically signed by : Cedrick Stanton 08/09/2019 18:40:23
[2019-08-10 06:38] LABS: Anion Gap 17.9 mEq/L (5-15)
[2019-08-10 06:45] LABS: Basophils % 0.2 % (0.1-2.0); Eosinophils # 0.3 K/mm3 (0.0-0.4); Eosinophils % 2.6 % (0.1-12.0); Hematocrit 28.7 % (37.0-47.0); Hemoglobin 9.4 g/dL (12.2-16.2); Lymphocytes # 2.2 K/mm3 (0.7-4.5); Lymphocytes % 22.2 % (10-50); Mean Corpuscular HGB Conc 32.7 g/dL (31.8-35.4); Mean Corpuscular Volume 101.9 fl (81-99); Mean Platelet Volume 8.6 fl (7.4-10.4); Monocytes # 0.8 K/mm3 (0.1-1.0); Monocytes % 8.5 % (1.7-9.3); Neutrophils # 6.4 K/mm3 (1.8-7.8); Neutrophils % 66.4 % (37.0-80.0); Platelet Count 307 K/mm3 (142-424); Red Blood Count 2.82 M/mm3 (4.20-5.40); Red Cell Distribution Width 16.4 % (11.5-17.5); White Blood Count 9.7 K/mm3 (4.8-10.8)
--- NOTE | 2019-08-10 08:02 | Progress Note ---
Internal Medicine - PN: Subj *Date: 08/10/19 *Time: 08:01 Interval history: Patient did well yesterday morning but by the afternoon had developed some excessive sleepiness and drowsiness. She was easily arousable according to nursing staff but because this was perceived as a possible change in mentation discharge was delayed. Patient had received Zanaflex and it was theorized this may have caused her symptoms. Patient admits that she sleeps quite a lot at home and will take naps throughout the day and patient and her sister believe this may have possibly just been the patient sleeping. This morning she feels well. She denies shortness of breath or chest pain. Zanaflex has been dis continued Exam Vital signs and Labs for Last 24 Hours: Temp Pulse Resp BP Pulse Ox 98.0 F 72 17 115/51 L 93 L 08/10/19 07:55 08/10/19 07:55 08/10/19 07:55 08/10/19 07:55 08/10/19 07:55 Laboratory Results - last 24 hr 08/10/19 05:40: WBC 9.7, RBC 2.82 L, Hgb 9.4 L, Hct 28.7 L, MCV 101.9 H, MCH 33.3 H, MCHC 32.7, RDW 16.4, Plt Count 307, MPV 8.6, Neut % (Auto) 66.4, Lymph % (Auto) 22.2, [place] % (Auto) 8.5, Eos % (Auto) 2.6, Baso % (Auto) 0.2, Neut # (Auto) 6.4, Lymph # (Auto) 2.2, [place] # (Auto) 0.8, Eos # (Auto) 0.3, Baso # (Auto) 0.0 08/10/19 05:40: Sodium 142, Potassium 3.9, Chloride 109 H, Carbon Dioxide 19 L, Anion Gap 17.9 H, BUN 14 D, Creatinine 0.85, Estimated Creat Clear 84, Estimated GFR 69, Est GFR ( Amer) 83, Glucose 160 H D, Calcium 8.0 L I & O for Last 24 hours: Intake & Output 08/07/19 08/08/19 08/09/19 08/10/19 11:59 11:59 11:59 11:59 Intake Total 970 / 970 771 / 771 480 / 480 360 / 360 Output Total 1350 / 1350 950 / 950 1250 / 1250 900 / 900 Balance -380 / -380 -179 / -179 -770 / -770 -540 / -540 Weight 162 lb 7 oz 161 lb 5 oz 160 lb 3 oz 162 lb 7 oz Narrative: She is awake and alert. She is oriented to person place and time. Her lungs are clear. Her heart has a regular rate and rhythm. Her abdomen is soft and nontender. Her extremities have no edema Assessment and Plan (1) Non-ST elevation MT (NSTEMI) Current visit: Yes Status: Acute Category: Medical Code(s): I21.4 - Non-ST elevation (NSTEMI) myocardial infarction (2) Acute systolic congestive heart failure Current visit: Yes Status: Acute Category: Medical Code(s): I50.21 - Acute systolic (congestive) heart failure (3) Coronary artery disease Current visit: Yes Status: Acute Category: Medical Code(s): I25.10 - Atherosclerotic heart disease of [place] coronary artery without angina pectoris (4) Hypertension Current visit: Yes Status: Acute Category: Medical Code(s): I10 - Essential (primary) hypertension (5) Hyperlipidemia Current visit: Yes Status: Acute Category: Medical Code(s): E78.5 - Hyperlipidemia, unspecified (6) History of coronary artery bypass graft Current visit: Yes Status: Acute Category: Surgical Code(s): Z95.1 - Presence of aortocoronary bypass graft (7) Ischemic cardiomyopathy Current visit: Yes Status: Acute Category: Medical Code(s): I25.5 - Ischemic cardiomyopathy (8) History of Hodgkin's lymphoma Current visit: Yes Status: Acute Category: Medical Code(s): Z85.71 - Personal history of Hodgkin lymphoma (9) Anemia Current visit: Yes Status: Acute Qualifiers: Anemia type: unspecified type Qualified Code(s): D64.9 - Anemia, unspecified Category: Medical Code(s): D64.9 - Anemia, unspecified - Assessment and plan all Dx Assessment and Plan for all problems:: Continue observing patient for mental status changes today. I suspect this was a combination of Zanaflex and the patient's normal daytime routine of napping. Possible discharge later today
== END 2019-08-10 17:25 | disposition home or self-care (01) | DRG 242 ==
LOC: ER 07:54 → 2ND 08:50
PROVIDERS: ADMIT Internal Medicine Adolescent Medicine; ATTEND Family Medicine
CPT/HCPCS: 33208; 36415; 71010; 71045; 71275; 80048; 80053; 80061; 80076; 82803; 82962; 83036; 83605; 83735; 83880; 84484; 85014; 85018; 85025; 85347; 85610; 85730; 86850; 87040; 92941; 92943; 93005; 93306; 93308; 93459; 94640; 94761; 96365; 96367; 96375; 99152; 99153; 99284; C1725; C1760; C1769; C1785; C1876; C1894; C1898; C9606; C9607; C9608; J1610; J1644; J2310; J2405; P9016; Q9967

== ENCOUNTER → 2019-08-19 13:33 | Outpatient (CLI) | payer MEDICARE, SELFPAY ==
[2019-08-19 14:16] LABS: Basophils # 0.1 K/mm3 (0-0.2); Basophils % 0.9 % (0.1-2.0); Eosinophils # 0.2 K/mm3 (0.0-0.4); Eosinophils % 3.7 % (0.1-12.0); Hematocrit 38.8 % (37.0-47.0); Hemoglobin 12.1 g/dL (12.2-16.2); Lymphocytes # 1.3 K/mm3 (0.7-4.5); Mean Corpuscular HGB Conc 31.2 g/dL (31.8-35.4); Mean Corpuscular Hemoglobin 32.7 pg (27.0-31.2); Mean Corpuscular Volume 104.8 fl (81-99); Mean Platelet Volume 7.4 fl (7.4-10.4); Monocytes # 0.4 K/mm3 (0.1-1.0); Monocytes % 6.2 % (1.7-9.3); Neutrophils # 3.7 K/mm3 (1.8-7.8); Neutrophils % 66.1 % (37.0-80.0); Platelet Count 544 K/mm3 (142-424); Red Blood Count 3.71 M/mm3 (4.20-5.40); Red Cell Distribution Width 16.3 % (11.5-17.5); White Blood Count 5.6 K/mm3 (4.8-10.8)
[2019-08-19 14:28] LABS: Blood Urea Nitrogen 7 mg/dL (7-18); Calcium 9.2 mg/dL (8.5-10.1); Carbon Dioxide 19 mmol/L (21.0-32.0); Chloride 107 mmol/L (98-107); Creatinine,Serum 0.77 mg/dL (0.55-1.02); Estimated Glomerular Filt Rate 77 ml/min (>60); GFR (African American) 93 ML/MIN (>60); Glucose 103 mg/dL (74-106); Sodium 137 mmol/L (136-145)
== END ==
PROVIDERS: Visit Provider Internal Medicine
DX: I21.4 Non-ST elevation (NSTEMI) myocardial infarction (principal)
CPT/HCPCS: 36415; 80048; 85025

== ENCOUNTER 2019-08-20 13:14 | Outpatient (RCR) | payer MEDICARE, SELFPAY | END 2019-12-31 10:35 | disposition home or self-care (01) | LOC: PT 13:14 | PROVIDERS: Visit Provider Internal Medicine | DX: Z95.5 Presence of coronary angioplasty implant and graft (principal) | CPT/HCPCS: 93798 ==

== ENCOUNTER → 2020-02-09 12:43 | Outpatient (CLI) | payer MEDICARE, SELFPAY ==
[2020-02-09 13:48] LABS: Basophils # 0.1 K/mm3 (0-0.2); Basophils % 1.3 % (0.1-2.0); Eosinophils # 0.3 K/mm3 (0.0-0.4); Eosinophils % 6.7 % (0.1-12.0); Hematocrit 39.3 % (37.0-47.0); Hemoglobin 12.7 g/dL (12.2-16.2); Lymphocytes # 1.8 K/mm3 (0.7-4.5); Lymphocytes % 41.8 % (10-50); Mean Corpuscular HGB Conc 32.3 g/dL (31.8-35.4); Mean Corpuscular Hemoglobin 31.7 pg (27.0-31.2); Mean Corpuscular Volume 97.9 fl (81-99); Mean Platelet Volume 7.4 fl (7.4-10.4); Monocytes # 0.4 K/mm3 (0.1-1.0); Neutrophils # 1.8 K/mm3 (1.8-7.8); Neutrophils % 42.3 % (37.0-80.0); Platelet Count 297 K/mm3 (142-424); Red Blood Count 4.01 M/mm3 (4.20-5.40); Red Cell Distribution Width 16.3 % (11.5-17.5); White Blood Count 4.4 K/mm3 (4.8-10.8)
[2020-02-09 14:17] LABS: Erythrocyte Sedimentation Rate 16 mm/hr (0-30)
[2020-02-09 14:44] LABS: Alanine Aminotransferase 15 U/L (12-78); Albumin Level 4.6 g/dl (3.5-5.0); Albumin/Globulin Ratio 1.2 (1.1-1.8); Alkaline Phosphatase 77 U/L (38-126); Anion Gap 12.2 mEq/L (5-15); Aspartate Amino Transferase 24 U/L (14-36); Bilirubin,Total 0.7 mg/dl (0.2-1.3); Blood Urea Nitrogen 10 mg/dl (7-17); Calcium 9.9 mg/dl (8.4-10.2); Carbon Dioxide 24 mmol/L (22.0-30.0); Chloride 107 mmol/L (98-107); Estimated Glomerular Filt Rate 64 ml/min (>60); GFR (African American) 78 ML/MIN (>60); Globulin 3.7 g/dL (1.3-3.2); Glucose 110 mg/dl (74-100); Potassium 5.2 mmoL/L (3.5-5.1); Sodium 138 mmol/L (136-145); Total Protein,Serum 8.3 g/dl (6.3-8.2)
[2020-02-09 14:50] LABS: C-Reactive Protein 0.4 mg/L (0-4)
== END ==
PROVIDERS: Visit Provider Nurse Practitioner Family
DX: M32.9 Systemic lupus erythematosus, unspecified (principal); M85.80 Other specified disorders of bone density and structure, unspecified site; Z79.899 Other long term (current) drug therapy
CPT/HCPCS: 36415; 80053; 85025; 85651; 86140

== ENCOUNTER → 2020-05-25 11:09 | Outpatient (CLI) | payer MEDICARE, SELFPAY ==
[2020-05-25 11:15] LABS: Microscopic, Urine URINE MICROSCOPIC (MICROSCOPIC)
[2020-05-25 11:34] LABS: Basophils # 0.1 K/mm3 (0-0.2); Basophils % 1.1 % (0.1-2.0); Eosinophils # 0.3 K/mm3 (0.0-0.4); Eosinophils % 6.2 % (0.1-12.0); Hematocrit 39.3 % (37.0-47.0); Hemoglobin 13.2 g/dL (12.2-16.2); Lymphocytes # 1.6 K/mm3 (0.7-4.5); Lymphocytes % 36.8 % (10-50); Mean Corpuscular HGB Conc 33.6 g/dL (31.8-35.4); Mean Corpuscular Hemoglobin 34.1 pg (27.0-31.2); Mean Corpuscular Volume 101.5 fl (81-99); Mean Platelet Volume 7.3 fl (7.4-10.4); Monocytes # 0.4 K/mm3 (0.1-1.0); Monocytes % 8.1 % (1.7-9.3); Neutrophils # 2.1 K/mm3 (1.8-7.8); Neutrophils % 47.9 % (37.0-80.0); Platelet Count 250 K/mm3 (142-424); Red Blood Count 3.87 M/mm3 (4.20-5.40); Red Cell Distribution Width 14.2 % (11.5-17.5); White Blood Count 4.4 K/mm3 (4.8-10.8)
[2020-05-25 11:59] LABS: Chloride 109 mmol/L (98-107); Erythrocyte Sedimentation Rate 22 mm/hr (0-30); Potassium 4.5 mmoL/L (3.5-5.1); Sodium 140 mmol/L (136-145)
[2020-05-25 12:02] LABS: Alanine Aminotransferase 16 U/L (12-78); Albumin Level 4.2 g/dl (3.5-5.0); Albumin/Globulin Ratio 1.2 (1.1-1.8); Alkaline Phosphatase 65 U/L (38-126); Anion Gap 13.5 mEq/L (5-15); Aspartate Amino Transferase 24 U/L (14-36); Bilirubin,Total 0.9 mg/dl (0.2-1.3); Blood Urea Nitrogen 9 mg/dl (7-17); Carbon Dioxide 22 mmol/L (22.0-30.0); Estimated Glomerular Filt Rate 74 ml/min (>60); GFR (African American) 89 ML/MIN (>60); Globulin 3.4 g/dL (1.3-3.2); Total Protein,Serum 7.6 g/dl (6.3-8.2)
[2020-05-25 12:03] LABS: Calcium 9.4 mg/dl (8.4-10.2); Glucose 116 mg/dl (74-100)
[2020-05-25 12:20] LABS: Appearance,Urine CLEAR (Clear); Bilirubin,Urine Negative (Negative); Blood, Urine Negative (Negative); C-Reactive Protein 0.5 mg/L (0-4); Color,Urine YELLOW (Yellow); Glucose,Urine (UA) Negative (Negative); Ketones,Urine Negative (Negative); Leukocyte Esterase,Urine 2+ (Negative); Nitrate,Urine Negative (Negative); Protein,Urine Negative (Negative)
[2020-05-25 12:42] LABS: Bacteria,Urine 1+ /lpf
[2020-05-26 16:36] LABS: Anti-DNA (DS) Ab Qn 1 IU/mL (0-9); Complement C3 133 mg/dL (82-167)
== END ==
PROVIDERS: Visit Provider Internal Medicine Rheumatology
DX: E55.9 Vitamin D deficiency, unspecified (principal); I21.4 Non-ST elevation (NSTEMI) myocardial infarction; M32.9 Systemic lupus erythematosus, unspecified; M85.80 Other specified disorders of bone density and structure, unspecified site; R30.0 Dysuria
CPT/HCPCS: 36415; 80053; 81001; 85025; 85651; 86140; 86161; 86225; 87086

== ENCOUNTER → 2020-08-30 12:43 | Outpatient (CLI) | payer MEDICARE, SELFPAY ==
[2020-08-30 13:02] LABS: Microscopic, Urine URINE MICROSCOPIC (MICROSCOPIC)
[2020-08-30 14:49] LABS: Appearance,Urine CLEAR (Clear); Bilirubin,Urine Negative (Negative); Blood, Urine Negative (Negative); Color,Urine YELLOW (Yellow); Glucose,Urine (UA) Negative (Negative); Ketones,Urine Negative (Negative); Leukocyte Esterase,Urine 1+ (Negative); Nitrate,Urine Negative (Negative); Protein,Urine Negative (Negative)
[2020-08-30 14:56] LABS: Eosinophils # 0.2 K/mm3 (0.0-0.4); Eosinophils % 5.6 % (0.1-12.0); Hematocrit 42.4 % (37.0-47.0); Hemoglobin 13.8 g/dL (12.2-16.2); Lymphocytes # 1.7 K/mm3 (0.7-4.5); Mean Corpuscular HGB Conc 32.5 g/dL (31.8-35.4); Mean Corpuscular Hemoglobin 33.7 pg (27.0-31.2); Mean Corpuscular Volume 103.7 fl (81-99); Mean Platelet Volume 7.9 fl (7.4-10.4); Monocytes # 0.4 K/mm3 (0.1-1.0); Monocytes % 8.7 % (1.7-9.3); Neutrophils % 45.8 % (37.0-80.0); Platelet Count 279 K/mm3 (142-424); Red Blood Count 4.09 M/mm3 (4.20-5.40); Red Cell Distribution Width 14.6 % (11.5-17.5); White Blood Count 4.3 K/mm3 (4.8-10.8)
[2020-08-30 15:06] LABS: Bacteria,Urine Trace /lpf; WBC,Urine Occasional #/hpf (0-3)
[2020-08-30 15:26] LABS: Erythrocyte Sedimentation Rate 17 mm/hr (0-30)
[2020-08-30 15:43] LABS: Chloride 109 mmol/L (98-107); Sodium 141 mmol/L (136-145)
[2020-08-30 15:44] LABS: Potassium 4.7 mmoL/L (3.5-5.1)
[2020-08-30 15:46] LABS: Alanine Aminotransferase 19 U/L (12-78); Albumin Level 5.1 g/dl (3.5-5.0); Albumin/Globulin Ratio 1.3 (1.1-1.8); Alkaline Phosphatase 87 U/L (38-126); Anion Gap 16.7 mEq/L (5-15); Aspartate Amino Transferase 27 U/L (14-36); Bilirubin,Total 1.1 mg/dl (0.2-1.3); Blood Urea Nitrogen 10 mg/dl (7-17); Carbon Dioxide 20 mmol/L (22.0-30.0); Estimated Glomerular Filt Rate 73 ml/min (>60); GFR (African American) 89 ML/MIN (>60); Globulin 3.8 g/dL (1.3-3.2); Total Protein,Serum 8.9 g/dl (6.3-8.2)
[2020-08-30 15:47] LABS: Calcium 9.7 mg/dl (8.4-10.2); Glucose 107 mg/dl (74-100)
[2020-08-30 17:03] LABS: Folate 5.52 ng/mL
[2020-08-30 21:26] LABS: C-Reactive Protein < 0.3 mg/L (0-4)
[2020-08-30 22:00] LABS: Vitamin B12 205 pg/mL (239-931)
[2020-09-01 19:19] LABS: Complement C3 135 mg/dL (82-167)
== END ==
PROVIDERS: Visit Provider Internal Medicine Rheumatology
DX: M32.9 Systemic lupus erythematosus, unspecified (principal); M71.022 Abscess of bursa, left elbow; M85.80 Other specified disorders of bone density and structure, unspecified site; I21.9 Acute myocardial infarction, unspecified; E55.9 Vitamin D deficiency, unspecified; R82.90 Unspecified abnormal findings in urine
CPT/HCPCS: 36415; 80053; 81001; 82607; 82746; 85025; 85651; 86140; 86161; 87086

== ENCOUNTER → 2020-11-25 11:56 | Outpatient (CLI) | payer MEDICARE, SELFPAY ==
[2020-11-25 12:08] LABS: Microscopic, Urine URINE MICROSCOPIC (MICROSCOPIC)
[2020-11-25 12:44] LABS: Appearance,Urine CLEAR (Clear); Bilirubin,Urine Negative (Negative); Blood, Urine Negative (Negative); Color,Urine YELLOW (Yellow); Glucose,Urine (UA) Negative (Negative); Ketones,Urine Negative (Negative); Leukocyte Esterase,Urine TRACE (Negative); Nitrate,Urine Negative (Negative); PH,Urine 7.5 (5.0-8.5); Protein,Urine Negative (Negative); Urobilinogen,Urine 0.2 EU/dl (0.2)
[2020-11-25 13:03] LABS: Chloride 113 mmol/L (98-107); Potassium 4.3 mmoL/L (3.5-5.1); Sodium 141 mmol/L (136-145)
[2020-11-25 13:05] LABS: Blood Urea Nitrogen 8 mg/dl (7-17); Estimated Glomerular Filt Rate 73 ml/min (>60); GFR (African American) 89 ML/MIN (>60)
[2020-11-25 13:06] LABS: Alanine Aminotransferase 15 U/L (12-78); Albumin Level 4.6 g/dl (3.5-5.0); Albumin/Globulin Ratio 1.3 (1.1-1.8); Alkaline Phosphatase 77 U/L (38-126); Anion Gap 13.3 mEq/L (5-15); Aspartate Amino Transferase 24 U/L (14-36); Bilirubin,Total 1.1 mg/dl (0.2-1.3); Calcium 9.6 mg/dl (8.4-10.2); Carbon Dioxide 19 mmol/L (22.0-30.0); Globulin 3.6 g/dL (1.3-3.2); Glucose 122 mg/dl (74-100); Total Protein,Serum 8.2 g/dl (6.3-8.2)
[2020-11-25 13:11] LABS: C-Reactive Protein 0.8 mg/L (0-4)
[2020-11-25 13:25] LABS: Erythrocyte Sedimentation Rate 23 mm/hr (0-30)
[2020-11-26 18:40] LABS: Complement C3 127 mg/dL (82-167)
== END ==
PROVIDERS: Visit Provider Internal Medicine Rheumatology
DX: M32.9 Systemic lupus erythematosus, unspecified (principal); M85.80 Other specified disorders of bone density and structure, unspecified site; I21.9 Acute myocardial infarction, unspecified; E55.9 Vitamin D deficiency, unspecified; R52 Pain, unspecified
CPT/HCPCS: 36415; 80053; 81001; 85651; 86140; 86161

== ENCOUNTER → 2021-03-26 11:44 | Outpatient (CLI) | payer MEDICARE, SELFPAY ==
[2021-03-26 13:42] LABS: 25-OH Vitamin D, Total 27.2 ng/mL (30-100)
[2021-03-26 14:31] LABS: Vitamin B12 348 pg/mL (239-931)
[2021-03-26 14:34] LABS: Folate 5.54 ng/mL
== END ==
PROVIDERS: Visit Provider Nurse Practitioner Family
DX: E53.8 Deficiency of other specified B group vitamins (principal); E55.9 Vitamin D deficiency, unspecified
CPT/HCPCS: 36415; 82306; 82607; 82746

== ENCOUNTER 2021-06-19 11:19 | Emergency (ER) | payer MEDICARE, SELFPAY ==
[2021-06-19 12:22] VITALS: BP 116/87; PULSE 102; RESP 19; TEMP 37; O2SAT 98; BMI 25.7
--- NOTE | 2021-06-19 12:39 | HMH.EDUTC ---
[facility] [place] Clinical Impression: Viral syndrome Disposition: Home, Self-Care Condition on Discharge: Good Instructions: Guaifenesin, DI for COVID-19 (Suspected or Confirmed ), Preventing the Spread of Coronavirus Discharge Instructions Additional Instructions: *Monitor Temp, Over the counter Motrin or Tylenol as directed/as needed Tylenol every 4 hours and Motrin every 6 hours (as long as your family doctor has told you that you can take it) for fever or pain. and straight to ER if unable to lower temp less than 101.0 after medication given *Warm salt water gargles may help to soothe the throat *Throat Lozenges *Warm fluids like tea with honey may help to soothe the throat *Sleep elevated *Humidifier/Vaporizer Follow up IMMEDIATELY for new or worsening symptoms or no Noticeable improvement over the next 48-72 hours. 911 for difficulty breathing or swallowing You were tested for today for COVID19 your test result should be back in the next 24-48 hours, you was given handout on how to log onto the [facility] portal to check the results of your COVID test if you are not able to log on you may call You was given a handout with instructions for Self Quarantine and Self isolation for while you wait on test results and what to do if they are positive If you are positive the Health Dept will be contacting you also Make sure to take your Vitamins Vit. C Vit D and Zinc if you can take them Referrals: Bharat Roberts MD [Primary Care Provider] - As needed Time of Disposition: 12:45 Medical Decision Making - Baron Inquiry Pt receiving controlled substance: No Baron was queried for this patient: No Vital Signs: 06/19/21 12:22 Temperature 98.6 F Temperature Source Temporal Artery Scan Pulse Rate [Right Brachial] 102 H Respiratory Rate 19 Blood Pressure [Right Arm] 116/87 Blood Pressure Mean [Right Arm] 96 Blood Pressure Source [Right Arm] Automatic Cuff Blood Pressure Position [Right Arm] Sitting 02 Sat by Pulse Oximetry 98 Oxygen Delivery Method Room Air Orders (Tests/Meds): ORDERS Category Date Time Status Covid-19 Nasal PCR ([facility]) Routine Lab 06/19/21 11:44 Ordered Medical Decision Narrative: Discussed and recommended CXR and patient declined states that she just wanted to get tested for COVID [facility] UTC HPI - General Stated complaint: covid test, cough, body aches, headache, Time Seen by Provider: 06/19/21 12:39 Mode of Arrival: Ambulatory Source of Information: Patient Description of Symptoms (Recalled from Triage Doc. by RN): covid test, cough, chills, fever, body aches, nausea HEENT Symptoms (Recalled from RN notes): Yes Resp Symptoms (Recalled from RN notes): Yes Skin Symptoms (Recalled from RN notes): No MS Symptoms (Recalled from RN notes): No Functional Status (Recalled from RN notes): yes - History of Present Illness Provider Complaint: Patient states that she has been having body aches, chills, nausea last night and a cough bur not coughing anything up or having any SOA States she wanted to get tested for COVID states that she hasnt been around anyone that she is aware of but due to symptoms she was having she wanted to get tested - Related Data Home Medications Medication Instructions Recorded Confirmed escitalopram oxalate 10 mg tablet 10 mg PO DAILY 30 Days #30 12/20/17 09/17/19 hydrocodone 5 mg-acetaminophen 325 5 mg PO Q6H PRN 8 Days #30 12/20/17 09/17/19 mg tablet nitroglycerin 0.4 mg sublingual 0.4 mg SUBLINGUAL Q5M PRN 12/20/17 09/17/19 tablet pantoprazole 40 mg tablet,delayed 40 mg PO DAILY 30 Days #30 12/20/17 09/17/19 release tizanidine 4 mg tablet 4 mg PO TID PRN 30 Days #60 12/20/17 09/17/19 topiramate 100 mg tablet 100 mg PO DAILY 30 Days #60 12/20/17 09/17/19 Tramadol HCl [Tramadol 50mg 1 tab PO Q6HP PRN 02/09/19 09/17/19 Tab] azaTHIOprine [Azathioprine] 50 mg PO BID 02/09/19 09/17/19 Atorvastatin Calcium [Lipitor 40mg 40 mg PO HS 08/04/19 09/17/19
[2021-06-19 12:48] VITALS: BP 116/81; PULSE 102; RESP 19; TEMP 37; O2SAT 98
== END 2021-06-19 12:48 | disposition home or self-care (01) ==
PROVIDERS: Emergency Provider Nurse Practitioner; PCP Family Medicine
DX: B34.9 Viral infection, unspecified (principal)
CPT/HCPCS: 99202; C9803; G0463; U0003; U0005

== ENCOUNTER 2021-06-19 23:01 | Emergency (ER) | payer MEDICARE, SELFPAY ==
[2021-06-19 23:02] VITALS: BP 139/90; PULSE 95; RESP 24; TEMP 38.7; O2SAT 98; BMI 26.6
--- NOTE | 2021-06-19 23:13 | HMH.EDGENADL ---
ED Disposition Clinical Impression: Upper respiratory infection Qualifiers: URI type: unspecified URI Qualified Code(s): J06.9 - Acute upper respiratory infection, unspecified Disposition: Home, Self-Care Condition on Discharge: Good Instructions: DI for Viral Upper Respiratory Infection -- Adult, DI for Atypical Chest Pain Additional Instructions: Tylenol and ibuprofen for fever and pain. Follow-up with primary care doctor, call today. Return to the emergency department if symptoms worsen. Referrals: Bharat Roberts MD [Primary Care Provider] - - Critical Care Critical Care Time: No Attestation: On , the high probability of a clinically significant, sudden or life threatening deterioration of the following system(s) required my full and direct attention, intervention and personal management. The time I documented below is in addition to time spent performing reported procedures but includes the following listed in this critical care notation. Medical Decision Making - Medical Records Medical records reviewed: Yes: I reviewed the patient's medical records. MR Comment: Results of prior heart cath, see below reviewed - Baron Inquiry Pt receiving controlled substance: No Vital Signs: 06/19/21 23:02 06/20/21 00:19 06/20/21 00:23 Temperature 101.6 F H Temperature Source Oral Pulse Rate 75 73 Pulse Rate [Right] 95 H Respiratory Rate 24 18 25 H Blood Pressure 91/42 L Blood Pressure [Right Arm] 139/90 Blood Pressure Mean [Right Arm] 106 02 Sat by Pulse Oximetry 98 96 94 L Oxygen Delivery Method Room Air 06/20/21 00:31 06/20/21 01:00 06/20/21 01:30 Temperature 98.9 F Temperature Source Pulse Rate 65 66 64 Pulse Rate [Right] Respiratory Rate 21 20 26 H Blood Pressure 97/43 L 107/56 L 127/87 Blood Pressure [Right Arm] Blood Pressure Mean [Right Arm] 02 Sat by Pulse Oximetry 94 L 97 99 Oxygen Delivery Method 06/20/21 02:00 06/20/21 02:33 06/20/21 03:00 Temperature Temperature Source Pulse Rate 59 L 66 61 Pulse Rate [Right] Respiratory Rate Blood Pressure 149/123 H 103/67 L 99/35 L Blood Pressure [Right Arm] Blood Pressure Mean [Right Arm] 02 Sat by Pulse Oximetry 93 L 96 98 Oxygen Delivery Method 06/20/21 03:30 06/20/21 04:11 Temperature 97.9 F Temperature Source Oral Pulse Rate 64 62 Pulse Rate [Right] Respiratory Rate 17 Blood Pressure 109/53 L 125/59 L Blood Pressure [Right Arm] Blood Pressure Mean [Right Arm] 02 Sat by Pulse Oximetry 98 Oxygen Delivery Method Room Air - Lab Data Lab Results 06/19/21 23:20: WBC 9.8, RBC 3.96 L, Hgb 13.2, Hct 39.8, MCV 100.4 H, MCH 33.3 H, MCHC 33.2, RDW 13.8, Plt Count 251, MPV 7.9, Neut % (Auto) 83.3 H, Lymph % (Auto) 9.8 L, [place] % (Auto) 5.8, Eos % (Auto) 0.7, Baso % (Auto) 0.4, Neut # (Auto) 8.2 H, Lymph # (Auto) 1.0, [place] # (Auto) 0.6, Eos # (Auto) 0.1, Baso # (Auto) 0.0 06/19/21 23:20: Sodium 138, Potassium 3.7, Chloride 108 H, Carbon Dioxide 17 L, Anion Gap 16.7 H, BUN 11, Creatinine 0.90, Estimated Creat Clear 74, Estimated GFR 64, Est GFR ( Amer) 77, Glucose 169 H, Calcium 9.0, Total Bilirubin 1.4 H, AST 22, ALT 12, Alkaline Phosphatase 86, Troponin I < 0.01, Total Protein 8.2, Albumin 4.2, Globulin 4.0 H, Albumin/Globulin Ratio 1.1 06/20/21 00:31: Lactate 0.8 06/20/21 01:35: Chlamy pneumoniae PCR Not detected, Adenovirus (PCR) Not detected, B. pertussis DNA (PCR) Not detected, Coronavirus OC43 (PCR) Not detected, Coronavirus HKU1 (PCR) Not detected, Coronavirus 229E (PCR) Not detected, SARS-CoV-2 (PCR) Not detected, Coronavirus NL63 (PCR) Not detected, Human Metapneumovir PCR Not detected, Influenza A (H1) PCR Not detected, Influ A (H1N1/09) PCR Not detected, Influenza A (H3) PCR Not detected, Influenza Type A (PCR) Not detected, Influenza Type B (PCR) Not detected, M. pneumoniae (PCR) Not detected, Parainfluenza 1 (PCR) Not detected, Parainfluenza 2 (PCR) Not detected, Parainfl
--- NOTE | 2021-06-19 23:45 | ECG_ITS ---
APPROVED REPORT Exam: Resting ECG HR:93 bpm ECG Measurements Heart Rate 93 AXES NC 160 P 61 QRSd 94 QRS 51 QT 406 T -6 QTc 504 Conclusion Normal sinus rhythm Possible Left atrial enlargement Left ventricular hypertrophy with repolarization abnormality Prolonged QT Abnormal ECG Electronically signed by : Bharat Webb MD 06/21/2021 17:37:51
[2021-06-20] VITALS (10 sets, daily range): BP systolic 91–149; BP diastolic 35–123; PULSE 59–75; RESP 17–26; TEMP 36.6–37.2; O2SAT 93–99
--- NOTE | 2021-06-20 00:09 | XR_ITS ---
PROCEDURE INFORMATION: Exam: XR Chest Exam date and time: 06/20/2021 12:09 AM Age: 61 years old Clinical indication: Pain; Shortness of breath; Chest pressure; Prior surgery; Surgery date: 6+ months; Surgery type: Pacemaker; Additional info: Arron FULTON TECHNIQUE: Imaging protocol: XR of the chest. Views: 2 views. COMPARISON: SD XR CHEST PORTABLE 08/08/2019 5:32 PM FINDINGS: Tubes, catheters and devices: Dual lead pacemaker in the left hemithorax. Status post sternotomy with persistent wire overlying the upper right hemithorax near the midline. Lungs: Calcified granuloma in the right mid lung. No acute appearing consolidation or airspace disease. Pleural spaces: No pleural effusion. No pneumothorax. Heart/Mediastinum: Calcified bilateral hilar lymph nodes. Bones/joints: Postsurgical changes in the lower cervical spine. IMPRESSION: No acute cardiopulmonary findings.
[2021-06-20 00:22] LABS: Basophils % 0.4 % (0.1-2.0); Eosinophils # 0.1 K/mm3 (0.0-0.4); Eosinophils % 0.7 % (0.1-12.0); Hematocrit 39.8 % (37.0-47.0); Hemoglobin 13.2 g/dL (12.2-16.2); Lymphocytes % 9.8 % (10-50); Mean Corpuscular HGB Conc 33.2 g/dL (31.8-35.4); Mean Corpuscular Hemoglobin 33.3 pg (27.0-31.2); Mean Corpuscular Volume 100.4 fl (81-99); Mean Platelet Volume 7.9 fl (7.4-10.4); Monocytes # 0.6 K/mm3 (0.1-1.0); Monocytes % 5.8 % (1.7-9.3); Neutrophils # 8.2 K/mm3 (1.8-7.8); Neutrophils % 83.3 % (37.0-80.0); Platelet Count 251 K/mm3 (142-424); Red Blood Count 3.96 M/mm3 (4.20-5.40); Red Cell Distribution Width 13.8 % (11.5-17.5); White Blood Count 9.8 K/mm3 (4.8-10.8)
[2021-06-20 00:25] LABS: Chloride 108 mmol/L (98-107); Potassium 3.7 mmoL/L (3.5-5.1); Sodium 138 mmol/L (136-145)
[2021-06-20 00:27] LABS: Blood Urea Nitrogen 11 mg/dl (7-17); Creatinine Clearance Estimated 74 mL/min (50-200); Estimated Glomerular Filt Rate 64 ml/min (>60); GFR (African American) 77 ML/MIN (>60)
[2021-06-20 00:28] LABS: Alanine Aminotransferase 12 U/L (12-78); Albumin Level 4.2 g/dl (3.5-5.0); Albumin/Globulin Ratio 1.1 (1.1-1.8); Alkaline Phosphatase 86 U/L (38-126); Anion Gap 16.7 mEq/L (5-15); Aspartate Amino Transferase 22 U/L (14-36); Bilirubin,Total 1.4 mg/dl (0.2-1.3); Carbon Dioxide 17 mmol/L (22.0-30.0); Glucose 169 mg/dl (74-100); Total Protein,Serum 8.2 g/dl (6.3-8.2)
[2021-06-20 00:41] LABS: Troponin I < 0.01 ng/ml (0.00-0.034)
[2021-06-20 00:45] LABS: Lactic Acid 0.8 mmol/L (0.7-2.1)
[2021-06-20 01:49] LABS: Adenovirus,PCR Not Detected (NotDetected); Bordetella Pertussis Not Detected (NotDetected); Chlamydophila Pneumoniae, PCR Not Detected (NotDetected); Coronavirus 19, PCR Not Detected (NotDetected); Coronavirus 229E Not Detected (NotDetected); Coronavirus NL63 Not Detected (NotDetected); Coronavirus OC43 Not Detected (NotDetected); Coronovirus HKU1,PCR Not Detected (NotDetected); Human Metapneumovirus Not Detected (NotDetected); Influenza A, PCR Not Detected (NotDetected); Influenza AH1, 2009 Not Detected (NotDetected); Influenza AH1, PCR Not Detected (NotDetected); Influenza AH3,PCR Not Detected (NotDetected); Influenza B, PCR Not Detected (NotDetected); Mycoplasma Pneumoniae, PCR Not Detected (NotDetected); Parainfluenza 1, PCR Not Detected (NotDetected); Parainfluenza 2, PCR Not Detected (NotDetected); Parainfluenza 3, PCR Not Detected (NotDetected); Parainfluenza 4, PCR Not Detected (NotDetected); Respiratory Syncytial Virus Not Detected (NotDetected); Rhinovirus/Enterovirus Not Detected (NotDetected)
[2021-06-20 03:43] LABS: Microscopic, Urine URINE MICROSCOPIC (MICROSCOPIC)
[2021-06-20 03:44] LABS: Appearance,Urine CLEAR (Clear); Bilirubin,Urine Negative (Negative); Blood, Urine Negative (Negative); Color,Urine YELLOW (Yellow); Glucose,Urine (UA) Negative (Negative); Ketones,Urine Negative (Negative); Leukocyte Esterase,Urine TRACE (Negative); Nitrate,Urine Negative (Negative); Protein,Urine Negative (Negative)
[2021-06-20 03:47] LABS: Amorphous Sediment,Urine Trace /lpf
[2021-06-20 03:54] LABS: Troponin I < 0.01 ng/ml (0.00-0.034)
== END 2021-06-20 04:18 | disposition home or self-care (01) ==
PROVIDERS: Emergency Provider Emergency Medicine; PCP Family Medicine
DX: J06.9 Acute upper respiratory infection, unspecified (principal); B34.9 Viral infection, unspecified; Z20.822 Contact with and (suspected) exposure to COVID-19; F41.8 Other specified anxiety disorders; E78.5 Hyperlipidemia, unspecified; I10 Essential (primary) hypertension; I25.10 Atherosclerotic heart disease of native coronary artery without angina pectoris
CPT/HCPCS: 71046; 80053; 81001; 83605; 84484; 85025; 87040; 87581; 87632; 87798; 93005; 96365; 99202; 99284; C9803; G0463; U0003; U0005

== ENCOUNTER 2021-06-21 09:43 | Emergency (ER) | payer MEDICARE, SELFPAY ==
[2021-06-21 09:44] VITALS: BP 123/63; PULSE 90; RESP 22; TEMP 37.2; O2SAT 97; BMI 26.6
--- NOTE | 2021-06-21 09:56 | ECG_ITS ---
APPROVED REPORT Exam: Resting ECG HR:82 bpm ECG Measurements Heart Rate 82 AXES [place] 164 P 56 QRSd 94 QRS 60 QT 414 T 41 QTc 483 Conclusion Normal sinus rhythm Possible Left atrial enlargement Left ventricular hypertrophy Prolonged QT Abnormal ECG Electronically signed by : Bharat Webb MD 06/21/2021 17:33:13
--- NOTE | 2021-06-21 10:14 | HMH.EDGENADL ---
ED Disposition Clinical Impression: Elevated brain natriuretic peptide (BNP) level Disposition: Home, Self-Care Condition on Discharge: Good Instructions: DI for Acute Abdominal Pain Referrals: Bharat Roberts MD [Primary Care Provider] - 06/22/21 Time of Disposition: 11:07 - Critical Care Critical Care Time: No Attestation: On , the high probability of a clinically significant, sudden or life threatening deterioration of the following system(s) required my full and direct attention, intervention and personal management. The time I documented below is in addition to time spent performing reported procedures but includes the following listed in this critical care notation. Medical Decision Making - Medical Records Medical records reviewed: Yes: I reviewed the patient's medical records. - Baron Inquiry Pt receiving controlled substance: No Vital Signs: 06/21/21 09:44 Temperature 98.9 F Temperature Source Oral Pulse Rate [Right] 90 Respiratory Rate 22 Blood Pressure [Right Arm] 123/63 Blood Pressure Mean [Right Arm] 83 02 Sat by Pulse Oximetry 97 Oxygen Delivery Method Room Air - Lab Data Lab results reviewed: Yes: I reviewed the patient's lab results. Lab Results 06/21/21 10:05: Sodium 139, Potassium 4.3, Chloride 109 H, Carbon Dioxide 19 L, Anion Gap 15.3 H, BUN 10, Creatinine 0.90, Estimated Creat Clear 74, Estimated GFR 64, Est GFR ( Amer) 77, Glucose 161 H, Calcium 8.9, NT-Pro-B Natriuret Pep 4010 H 06/21/21 10:25: Urine Color Yellow, Urine Appearance Clear, Urine pH 6.0, Ur Specific [place] 1.020, Urine Protein 1+, Urine Glucose (UA) Negative, Urine Ketones Negative, Urine Blood Negative, Urine Nitrate Negative, Urine Bilirubin Negative, Urine Urobilinogen 2.0, Ur Leukocyte Esterase Trace, Urine RBC None, Urine WBC 3-5, Ur Squamous Epith Cells 3-5, Urine Bacteria None Result diagrams: 06/21/21 10:05 - ECG Data Tracing #1 I reviewed this ECG and interpreted as documented below: Normal sinus rhythm, 82 bpm, no ST elevation or depression, possible incomplete right bundle branch block. QT of 414. ECG initial impression date: 06/21/21 ECG initial impression time: 09:56 Medical Decision Narrative: 61yo F evaluated with concern for dehydration. Patient no acute distress on initial evaluation. I reviewed the patient's record from the . Patient's BNP at that time was over 1500. Chest x-ray was unremarkable. Laboratory studies were, other than BNP, work on actionable. Repeating the patient's BNP and basic metabolic panel at this time. Patient is metabolic panel is unremarkable and her BNP is elevated at 4000 today, up from 1500 last time she was here few days ago. Case discussed with Dr. Roberts. He had actually intended for the patient to go to the infusion center for an outpatient infusion of normal saline 1 L. Discussed BNP finding and Dr. Roberts would like to proceed with infusion. Patient given 1 L normal saline and will be discharged home following General Adult HPI - General Chief complaint: Abdominal Pain Stated complaint: possible dehydration Time Seen by Provider: 06/21/21 10:14 Mode of Arrival: Ambulatory Limitations: No Limitations Description of Symptoms (Recalled from ER Triage Doc. by RN): C/O UPPER ABDOMINAL PAIN WITH NAUSEA/VOMITING, MID BACK PAIN & SHORTNESS OF BREATH WITH COUGH SINCE SUNDAY. TESTED FOR COVID YESTERDAY & WAS NEGATIVE. CARDIAC HX, DENIES CHEST PAIN. - History of Present Illness HPI narrative: 61yo F presents the emergency department with concerns for dehydration. Patient states she was seen in the emergency department roughly 2 days ago and was negative for Covid. She follow-up with her PCP this morning at 9:00 where she was diagnosed with pneumonia and reports being told to come to the emergency department to receive IV fluids because she seemed dehydrated. - Related Data Home Medications Medication Instructions Recorded Confirmed es
[2021-06-21 10:19] LABS: Chloride 109 mmol/L (98-107); Potassium 4.3 mmoL/L (3.5-5.1); Sodium 139 mmol/L (136-145)
[2021-06-21 10:22] LABS: Anion Gap 15.3 mEq/L (5-15); Blood Urea Nitrogen 10 mg/dl (7-17); Calcium 8.9 mg/dl (8.4-10.2); Carbon Dioxide 19 mmol/L (22.0-30.0); Creatinine Clearance Estimated 74 mL/min (50-200); Estimated Glomerular Filt Rate 64 ml/min (>60); GFR (African American) 77 ML/MIN (>60); Glucose 161 mg/dl (74-100)
[2021-06-21 10:30] LABS: Microscopic, Urine URINE MICROSCOPIC (MICROSCOPIC)
[2021-06-21 10:32] LABS: Appearance,Urine CLEAR (Clear); Bilirubin,Urine Negative (Negative); Blood, Urine Negative (Negative); Color,Urine YELLOW (Yellow); Glucose,Urine (UA) Negative (Negative); Ketones,Urine Negative (Negative); Leukocyte Esterase,Urine TRACE (Negative); Nitrate,Urine Negative (Negative); Protein,Urine 1+ (Negative)
[2021-06-21 10:32] LABS: NT Pro Brain Natriuretic Pep. 4010 pg/mL (0-125)
--- NOTE | 2021-06-21 10:50 | PC.NURSE ---
calling Dr Roberts
--- NOTE | 2021-06-21 11:14 | PC.NURSE ---
VERIFIED WITH DR. MANCINI THAT WE ARE GIVING IVFs WITH BNP >4000. GIVE IVFs PER DR. MAGANA
--- NOTE | 2021-06-21 13:27 | PC.NURSE ---
PT WALKED OUT OF ROOM WANTING TO LEAVE, REMOVED PIV TO LEFT HAND BY HERSELF. REFUSED DISCHARGE VITAL SIGNS. REFUSED DISCHARGE PAPERWORK. PT AMBULATORY OUT OF THE BUILDING WITHOUT DIFFICULTIES.
[2021-06-21 13:30] VITALS: BP 00/00; PULSE 0; RESP 18; TEMP -17.7; TEMP 0
== END 2021-06-21 13:31 | disposition home or self-care (01) ==
PROVIDERS: Emergency Provider Family Medicine; PCP Family Medicine
DX: R06.02 Shortness of breath (principal); R05 Cough; R11.2 Nausea with vomiting, unspecified; I10 Essential (primary) hypertension; E78.5 Hyperlipidemia, unspecified; F41.8 Other specified anxiety disorders; I25.2 Old myocardial infarction
CPT/HCPCS: 80048; 81001; 83880; 93005; 99282

== ENCOUNTER 2021-06-23 09:18 | Observation (INO) | payer MEDICARE, SELFPAY ==
[2021-06-23] VITALS (12 sets, daily range): BP systolic 125–182; BP diastolic 58–89; PULSE 80–110; RESP 16–20; TEMP 36.8–38.7; O2SAT 95–99; BMI 26.1
--- NOTE | 2021-06-23 09:55 | HMH.EDGENADL ---
ED Disposition Clinical Impression: Pneumonia Qualifiers: Pneumonia type: due to unspecified organism Laterality: left Lung location: lower lobe of lung Qualified Code(s): J18.9 - Pneumonia, unspecified organism Disposition: Admitted as Observation Condition on Discharge: Fair Referrals: Bharat Roberts MD [Primary Care Provider] - - Critical Care Critical Care Time: No Attestation: On 06/23/21, the high probability of a clinically significant, sudden or life threatening deterioration of the following system(s) required my full and direct attention, intervention and personal management. The time I documented below is in addition to time spent performing reported procedures but includes the following listed in this critical care notation. Medical Decision Making - Baron Inquiry Pt receiving controlled substance: No Vital Signs: 06/23/21 09:19 Temperature 101.7 F H Temperature Source Oral Pulse Rate [Right Radial] 98 H Respiratory Rate 20 Blood Pressure [Right Arm] 125/77 Blood Pressure Mean [Right Arm] 93 Blood Pressure Source [Right Arm] Automatic Cuff Blood Pressure Position [Right Arm] Sitting 02 Sat by Pulse Oximetry 96 Oxygen Delivery Method Room Air - Lab Data Lab Results 06/23/21 10:10: WBC 11.3 H, RBC 3.26 L, Hgb 10.9 L, Hct 33.0 L, MCV 101.3 H, MCH 33.3 H, MCHC 32.9, RDW 14.6, Plt Count 277, MPV 8.9, Neut % (Auto) 90.0 H, Lymph % (Auto) 6.1 L, [place] % (Auto) 3.4, Eos % (Auto) 0.3, Baso % (Auto) 0.2, Neut # (Auto) 10.2 H, Lymph # (Auto) 0.7, [place] # (Auto) 0.4, Eos # (Auto) 0.0, Baso # (Auto) 0.0, Total Counted 100, Neutrophils % (Manual) 93 H, Lymphocytes % (Manual) 5 L, Monocytes % (Manual) 2, Platelet Estimate Normal, Anisocytosis 1+, Macrocytosis 1+ 06/23/21 10:10: Sodium 144, Potassium 3.6, Chloride 111 H, Carbon Dioxide 16 L, Anion Gap 20.6 H, BUN 14 D, Creatinine 1.00, Estimated Creat Clear 65, Estimated GFR 57 L, Est GFR ( Amer) 68, Glucose 117 H, Calcium 9.2, Total Bilirubin 1.1, AST 42 H, ALT 22, Alkaline Phosphatase 63, Total Protein 7.9, Albumin 3.8, Globulin 4.1 H, Albumin/Globulin Ratio 0.9 L 06/23/21 10:20: Lactate 1.0 Result diagrams: 06/23/21 10:10 06/23/21 10:10 Orders (Tests/Meds): ED MEDICATIONS Generic Name Dose Route Start Last Admin Trade Name Freq PRN Reason Stop Dose Admin Cefepime HCl 2 gm/ Sodium 100 mls @ 100 mls/hr 06/23/21 10:15 06/23/21 10:36 Chloride IV 07/07/21 10:14 100 mls/hr Q12H ELOY Administration Vancomycin HCl 1,500 mg/ 250 mls @ 125 mls/hr 06/23/21 11:00 Sodium Chloride IV 06/23/21 12:59 ONCE ONE Vancomycin HCl 1,250 mg/ 250 mls @ 125 mls/hr 06/24/21 11:00 Sodium Chloride IV 07/08/21 10:59 Q24H ELOY Discontinued Medications Generic Name Dose Route Start Last Admin Trade Name Freq PRN Reason Stop Dose Admin Miscellaneous 1 each 06/23/21 10:15 Vancomycin Consult Request * 07/23/21 10:14 CONSULT PHARMACY ELOY ORDERS Category Date Time Status Rapid PCR Covid and Flu A/B Stat Lab 06/23/21 10:42 Received Blood Culture Stat Micro 06/23/21 10:20 Received - Radiology Data #1 Image(s): Chest Image Reviewed: Yes I reviewed the patient's radiology image, Yes I have reviewed radiologist's interpretation PROCEDURE: XR CHEST 2V CLINICAL HISTORY: pneumonia COMPARISON: CR XR CHEST PORTABLE from 08/04/[address] ANGIO CHEST from 08/07/2019 CR XR CHEST PORTABLE from 08/08/2019 CR XR CHEST 2V from 06/20/2021 FINDINGS: Prior CABG. Bipolar pacemaker is present from left subclavian approach. Old granulomatous disease. Chronic changes in the left mid lung. There is increased density in the lung base posteriorly on the left consistent with pneumonia Bone plate is present along the lower cervical spine. IMPRESSION: Left lower lobe pneumonia Dictated by: George Alva MD 06/23/2021 10:55 George Alva MD in [facility] 06/23/2021 10:55 - Physician Consults Physician
--- NOTE | 2021-06-23 10:10 | XR_ITS ---
PROCEDURE: XR CHEST 2V CLINICAL HISTORY: pneumonia COMPARISON: CR XR CHEST PORTABLE from 08/04/[address] ANGIO CHEST from 08/07/2019 CR XR CHEST PORTABLE from 08/08/2019 CR XR CHEST 2V from 06/20/2021 FINDINGS: Prior CABG. Bipolar pacemaker is present from left subclavian approach. Old granulomatous disease. Chronic changes in the left mid lung. There is increased density in the lung base posteriorly on the left consistent with pneumonia Bone plate is present along the lower cervical spine. IMPRESSION: Left lower lobe pneumonia Dictated by: George Alva MD 06/23/2021 10:55 George Alva MD in [facility] 06/23/2021 10:55
[2021-06-23 10:18] LABS: Basophils % 0.2 % (0.1-2.0); Eosinophils % 0.3 % (0.1-12.0); Hemoglobin 10.9 g/dL (12.2-16.2); Lymphocytes # 0.7 K/mm3 (0.7-4.5); Lymphocytes % 6.1 % (10-50); Mean Corpuscular HGB Conc 32.9 g/dL (31.8-35.4); Mean Corpuscular Hemoglobin 33.3 pg (27.0-31.2); Mean Corpuscular Volume 101.3 fl (81-99); Mean Platelet Volume 8.9 fl (7.4-10.4); Monocytes # 0.4 K/mm3 (0.1-1.0); Monocytes % 3.4 % (1.7-9.3); Neutrophils # 10.2 K/mm3 (1.8-7.8); Platelet Count 277 K/mm3 (142-424); Red Blood Count 3.26 M/mm3 (4.20-5.40); Red Cell Distribution Width 14.6 % (11.5-17.5); White Blood Count 11.3 K/mm3 (4.8-10.8)
[2021-06-23 10:21] LABS: MANUAL DIFFERENTIAL MANUAL DIFFERENTIAL (MANUAL DIFF)
--- NOTE | 2021-06-23 10:21 | PC.NURSE ---
Pt to RAD
--- NOTE | 2021-06-23 10:25 | PC.NURSE ---
Pt returned from RAD
[2021-06-23 10:26] LABS: Alanine Aminotransferase 22 U/L (12-78); Albumin Level 3.8 g/dl (3.5-5.0); Albumin/Globulin Ratio 0.9 (1.1-1.8); Alkaline Phosphatase 63 U/L (38-126); Anion Gap 20.6 mEq/L (5-15); Aspartate Amino Transferase 42 U/L (14-36); Bilirubin,Total 1.1 mg/dl (0.2-1.3); Blood Urea Nitrogen 14 mg/dl (7-17); Calcium 9.2 mg/dl (8.4-10.2); Carbon Dioxide 16 mmol/L (22.0-30.0); Chloride 111 mmol/L (98-107); Creatinine Clearance Estimated 65 mL/min (50-200); Estimated Glomerular Filt Rate 57 ml/min (>60); GFR (African American) 68 ML/MIN (>60); Globulin 4.1 g/dL (1.3-3.2); Glucose 117 mg/dl (74-100); Potassium 3.6 mmoL/L (3.5-5.1); Sodium 144 mmol/L (136-145); Total Protein,Serum 7.9 g/dl (6.3-8.2)
[2021-06-23 10:45] LABS: Anisocytosis 1+; Lymphocytes % 5 % (10-50); Macrocytosis 1+; Monocytes % 2 % (2-9); Neutrophils % 93 % (42-76); Platelet Estimate Normal; Total Cells Counted 100
--- NOTE | 2021-06-23 10:48 | HMH.PHACONS ---
- Pharmacy Consult Date: 06/23/21 Time: 10:48 Referring provider: CINTHYA Reason for Consult:: VANCOMYCIN CONSULT Allergies and ADEs:: Allergies Allergy/AdvReac Type Severity Reaction Status Date / Time No Known Allergies Allergy Verified 06/21/21 10:09 Home Medications:: Home Medications Medication Instructions Recorded Confirmed Type escitalopram oxalate 10 mg tablet 10 mg PO DAILY 30 Days #30 12/20/17 09/17/19 History hydrocodone 5 mg-acetaminophen 325 5 mg PO Q6H PRN 8 Days #30 12/20/17 09/17/19 History mg tablet nitroglycerin 0.4 mg sublingual 0.4 mg SUBLINGUAL Q5M PRN 12/20/17 09/17/19 History tablet pantoprazole 40 mg tablet,delayed 40 mg PO DAILY 30 Days #30 12/20/17 09/17/19 History release tizanidine 4 mg tablet 4 mg PO TID PRN 30 Days #60 12/20/17 09/17/19 History topiramate 100 mg tablet 100 mg PO DAILY 30 Days #60 12/20/17 09/17/19 History Tramadol HCl [Tramadol 50mg 1 tab PO Q6HP PRN 02/09/19 09/17/19 History Tab] azaTHIOprine [Azathioprine] 50 mg PO BID 02/09/19 09/17/19 History Atorvastatin Calcium [Lipitor 40mg 40 mg PO HS 08/04/19 09/17/19 History Tab] Clopidogrel Bisulfate [Plavix 75mg 75 mg PO DAILY #30 tab 08/09/19 09/17/19 Rx Tab] Spironolactone [Aldactone 25mg 25 mg PO DAILY #30 tab 08/09/19 09/17/19 Rx Tab] lisinopriL [Zestril 5mg 5 mg PO DAILY #30 tab 08/09/19 09/17/19 Rx Tablet] Albuterol Sulfate [Albuterol HFA 2 puffs IH Q4HP PRN #1 inh 08/10/19 09/17/19 Rx Inhaler] aspirin 81 mg tablet,delayed 81 mg PO DAILY #30 tab 08/19/19 09/17/19 Rx release metoprolol succinate 25 mg 25 mg PO DAILY #90 tab 06/14/20 Rx tablet,extended release 24 hr Height: 1.63 m Weight: 68.946 kg Laboratory Results:: Laboratory Results - last 24 hr 06/23/21 10:10: WBC 11.3 H, RBC 3.26 L, Hgb 10.9 L, Hct 33.0 L, MCV 101.3 H, MCH 33.3 H, MCHC 32.9, RDW 14.6, Plt Count 277, MPV 8.9, Neut % (Auto) 90.0 H, Lymph % (Auto) 6.1 L, [place] % (Auto) 3.4, Eos % (Auto) 0.3, Baso % (Auto) 0.2, Neut # (Auto) 10.2 H, Lymph # (Auto) 0.7, [place] # (Auto) 0.4, Eos # (Auto) 0.0, Baso # (Auto) 0.0, Total Counted 100, Neutrophils % (Manual) 93 H, Lymphocytes % (Manual) 5 L, Monocytes % (Manual) 2, Platelet Estimate Normal, Anisocytosis 1+, Macrocytosis 1+ 06/23/21 10:10: Sodium 144, Potassium 3.6, Chloride 111 H, Carbon Dioxide 16 L, Anion Gap 20.6 H, BUN 14 D, Creatinine 1.00, Estimated Creat Clear 65, Estimated GFR 57 L, Est GFR ( Amer) 68, Glucose 117 H, Calcium 9.2, Total Bilirubin 1.1, AST 42 H, ALT 22, Alkaline Phosphatase 63, Total Protein 7.9, Albumin 3.8, Globulin 4.1 H, Albumin/Globulin Ratio 0.9 L Medical History: Reports:: Anxiety, Cancer, Congestive Heart Failure, Coronary Artery Disease, Depression, Hyperlipidemia, Hypertension, Migraine, Myocardial Infarction Denies:: Diabetes Mellitus Type 1, Diabetes Mellitus Type 2, Internal Pacemaker, Seizures Assessment and Plan - Assessment and plan all Dx Assessment and Plan for all problems:: Subjective and Objective Data: This is a 61 year old female patient with suspected pneumonia. Measured serum creatinine (SCr) is 1 mg/dL. Given a height of 163 cm and a weight of 68.946 kg, estimated creatinine clearance is 65.1 mL/min (using the CrCl TBW body weight). The following targets were selected for dosing: - Desired AUC = 500 mcg*h/mL - Desired Cmax = 35 mcg/mL - Desired Cmin = 12.5 mcg/mL - Vd coefficient = 0.65 L/kg - Ke equation = CrCl*0.46383+0.0044 Calculations: Based on above, the following are calculated parameters for AUC-based vancomycin dosing in this patient: - Calculated Vd = 44.8149L - Calculated Ke = 0.058 inverse hours - Calculated half-life = 11.9 hours Recommended Prescribed Dosing: -LOADING DOSE OF VANCOMYCIN 1500 MG IV ONCE. -STARTING DOSE OF VANCOMYCIN IV 1250 MG [id number] TO START AT 1100 ON 06/24/21 Which is predicted to achieve the following parameters: - E
[2021-06-23 10:50] LABS: Coronavirus 19, PCR Not Detected (NotDetected); Influenza A, PCR Not Detected (NotDetected); Influenza B, PCR Not Detected (NotDetected)
--- NOTE | 2021-06-23 10:58 | PC.NURSE ---
Dr Almaraz spoke with Dr Roberts.
--- NOTE | 2021-06-23 11:15 | PC.NURSE ---
1110 bed assignment requested. pt will board in ED, rooms on med-surg are being cleaned at this time, charge nurse will call with room assignment
--- NOTE | 2021-06-23 15:16 | HMH.PHAINT ---
HOME MEDICATION RECONCILIATION COMPLETE. INFORMATION GATHERED WAS FROM PREVIOUS DISCHARGE AND SURESCRIPTS INFO
--- NOTE | 2021-06-23 17:42 | HMH.HP ---
*Admission Date: 06/23/21 *Chief complaint: fevers *History of present illness: 61 year old female seen in office this week after UTC and ER visit and diagnosed with LLL CAP. Patient was having fevers from 102-104 which made her delirious. Patient was seen in office daily from 06/22 through 06/24 and treated with IM ceftriaxone and oral azithromycin. WBC in 14,000. Patient was not showing signs of improvment and was admitted through the ER. Patient reports brown sputum production along with fevers, chills, cough, and mild dyspnea. [facility] History I have reviewed the patient's past medical history: Yes Medical History: Reports:: Anxiety, Cancer, Congestive Heart Failure, Coronary Artery Disease, Depression, Hyperlipidemia, Hypertension, Internal Pacemaker, Migraine, Myocardial Infarction Denies:: Diabetes Mellitus Type 1, Diabetes Mellitus Type 2, MRSA, Seizures *Have you ever received a pneumonia vaccine?: Yes *Have you received a flu vaccine this season?: Yes Other Medical History: Reports: Arthritis, Other (lupus, heart disease, benign chest pain) Other Surgeries: Yes: No Previous Surgery, CABG, Cardiac Catheterization, Cholecystectomy, Coronary Stent, Hysterectomy-Total, Pacemaker, Splenectomy, Other Amputation: No Fractures: No - *Social History Last grade of school completed: High school graduate Smoking Status: Former smoker Alcohol Intake: never Alcohol Intake Frequency:: holidays/special occasions only Substance Use Type: denies use *Occupational Status:: unemployed Housing: house *Travel in the last 8 weeks: None - Psychiatric History Pschychiatric History:: Reports:: Anxiety, Depression Family Hx:: Coronary Artery Disease Review of Systems - Review of Systems Review of systems:: pertinent systems reviewed and negative unless documented below - *Neurologic Reports weakness Meds Home Medications Medication Instructions Recorded Confirmed Type escitalopram oxalate 10 mg tablet 10 mg PO DAILY 30 Days #30 12/20/17 06/23/21 History hydrocodone 5 mg-acetaminophen 325 5 mg PO Q6H PRN 8 Days #30 12/20/17 06/23/21 History mg tablet nitroglycerin 0.4 mg sublingual 0.4 mg SUBLINGUAL Q5M PRN 12/20/17 06/23/21 History tablet pantoprazole 40 mg tablet,delayed 40 mg PO DAILY 30 Days #30 12/20/17 06/23/21 History release tizanidine 4 mg tablet 4 mg PO TID PRN 30 Days #60 12/20/17 06/23/21 History topiramate 100 mg tablet 100 mg PO DAILY 30 Days #60 12/20/17 06/23/21 History Tramadol HCl [Tramadol 50mg 1 tab PO Q6HP PRN 02/09/19 06/23/21 History Tab] azaTHIOprine [Azathioprine] 50 mg PO BID 02/09/19 06/23/21 History Atorvastatin Calcium [Lipitor 40mg 40 mg PO HS 08/04/19 06/23/21 History Tab] Albuterol Sulfate [Albuterol 2 puffs PO Q4H PRN 06/23/21 06/23/21 History Sulfate Hfa] Aspirin [Low Dose Aspirin EC] 81 mg PO DAILY 06/23/21 06/23/21 History Clopidogrel Bisulfate [Plavix 75mg 75 mg PO DAILY 06/23/21 06/23/21 History Tab] Metoprolol Succinate [Metoprolol 25 mg PO DAILY 06/23/21 06/23/21 History Succinate 25mg Tablet*] Spironolactone [Aldactone 25mg 25 mg PO DAILY 06/23/21 06/23/21 History Tab] lisinopriL [Zestril 5mg 5 mg PO DAILY 06/23/21 06/23/21 History Tablet] Allergies Allergy/AdvReac Type Severity Reaction Status Date / Time No Known Allergies Allergy Verified 06/23/21 16:10 Exam Vital signs and Labs for Last 24 Hours: Temp Pulse Resp BP Pulse Ox 98.3 F 100 H 20 176/79 H 99 06/23/21 16:00 06/23/21 16:00 06/23/21 16:00 06/23/21 16:00 06/23/21 16:00 Laboratory Results - last 24 hr 06/23/21 10:10: WBC 11.3 H, RBC 3.26 L, Hgb 10.9 L, Hct 33.0 L, MCV 101.3 H, MCH 33.3 H, MCHC 32.9, RDW 14.6, Plt Count 277, MPV 8.9, Neut % (Auto) 90.0 H, Lymph % (Auto) 6.1 L, [place] % (Auto) 3.4, Eos % (Auto) 0.3, Baso % (Auto) 0.2, Neut # (Auto) 10.2 H, Lymph # (Auto) 0.7, [place] # (Auto) 0.4, Eos # (Auto) 0.0, Baso # (Auto) 0.0, Total Counted 100, Neutrophils
[2021-06-24] VITALS: BP 161/78; PULSE 92; RESP 18; TEMP 36.9; O2SAT 98
--- NOTE | 2021-06-24 03:26 | PC.NURSE ---
Shift summary. Pt has tolerated RA well with sats in upper 90s. Productive cough noted, specimen collected. Sputum light brown tinged with blood. Pt has voiced c/o pain in left chest while coughing. Bilateral expiratory wheezing noted on auscultation. Pt had low grade fever at beginning of shift with temp of 100.1. Acetaminophen administered per NOV. Pt currently watching tv in bed. Call light within reach. Will continue to monitor.
[2021-06-24 04:00] VITALS: BP 153/83; PULSE 104; RESP 20; TEMP 37.2; O2SAT 98
[2021-06-24 04:25] VITALS: BMI 25.7
[2021-06-24 06:11] LABS: Basophils % 0.3 % (0.1-2.0); Eosinophils # 0.1 K/mm3 (0.0-0.4); Eosinophils % 0.8 % (0.1-12.0); Hematocrit 32.2 % (37.0-47.0); Hemoglobin 10.3 g/dL (12.2-16.2); Lymphocytes # 0.8 K/mm3 (0.7-4.5); Lymphocytes % 9.7 % (10-50); Mean Corpuscular Hemoglobin 32.4 pg (27.0-31.2); Mean Corpuscular Volume 101.3 fl (81-99); Mean Platelet Volume 8.4 fl (7.4-10.4); Monocytes # 0.5 K/mm3 (0.1-1.0); Monocytes % 5.5 % (1.7-9.3); Neutrophils # 7.1 K/mm3 (1.8-7.8); Neutrophils % 83.6 % (37.0-80.0); Platelet Count 286 K/mm3 (142-424); Red Blood Count 3.18 M/mm3 (4.20-5.40); White Blood Count 8.5 K/mm3 (4.8-10.8)
[2021-06-24 06:21] LABS: Anion Gap 15.4 mEq/L (5-15); Blood Urea Nitrogen 8 mg/dl (7-17); Calcium 8.4 mg/dl (8.4-10.2); Carbon Dioxide 15 mmol/L (22.0-30.0); Chloride 116 mmol/L (98-107); Creatinine Clearance Estimated 108 mL/min (50-200); Estimated Glomerular Filt Rate 102 ml/min (>60); GFR (African American) 123 ML/MIN (>60); Glucose 140 mg/dl (74-100); Potassium 3.4 mmoL/L (3.5-5.1); Sodium 143 mmol/L (136-145)
--- NOTE | 2021-06-24 06:57 | CT_ITS ---
PROCEDURE: CT ANGIO CHEST PE PROTOCOL CLINCIAL INDICATION: hemoptysis, pneumonia COMPARISON: CT CT ANGIO CHEST from 08/07/2019 CR XR CHEST 2V from 06/23/2021 TECHNIQUE: IV Contrast: 70ML Isovue 370 Axial images obtained with sagittal and coronal reformats. All CT scans at the facility use one or more dose reduction, viz: automated exposure control, ma/kV adjustment per patient size (including targeted exams where dose is matched to indication, i.e. head), or iterative reconstruction technique. FINDINGS: HEART AND MEDIASTINAL STRUCTURES: No evidence of pulmonary embolus, aortic aneurysm, or aortic dissection.. Coarse calcification is present within the mediastinum and helene similar to the previous exam. No mediastinal or hilar mass. There has been a prior CABG. Artifact is present from previously placed bipolar pacemaker from the left subclavian approach. LUNGS AND PLEURAL SPACES: Panlobular emphysematous changes with scattered areas of scarring. Multiple calcified nodules. There is dense consolidation within the left lower lobe consistent with pneumonia with small parapneumonic effusion. There are other scattered areas of increased density including the right hilar region and along the right major fissure medially and in the right middle lobe anteriorly. There is a stable 5 mm nodule in the right middle lobe anteriorly. Nodular opacity is present in the right middle lobe medially and posteriorly along the major fissure measuring 8 mm not readily apparent on the previous study. 4 mm nodules present in the right lower lobe posteriorly unchanged. Patchy area of infiltrate is also present in the right upper lobe inferiorly and in the right middle lobe. BONY STRUCTURES: No acute bony abnormalities apparent. There is a 5 mm subpleural nodule in the lingula unchanged. Other scattered small nodular opacities in the left lung are also unchanged including a 6 mm nodule in the left lower lobe anteriorly. UPPER ABDOMEN: Surgical clips are present posterior to the stomach with soft tissue density at this region contiguous with the tail the pancreas. This area measures 2 cm x 1.4 cm and is not significantly changed. Mildly prominent lymph node is present along the medial aspect of the stomach at 1.8 cm. There are small retrocrural nodes on the left. ADDITIONAL FINDINGS: IMPRESSION: 1. Extensive left lower lobe pneumonia with parapneumonic effusion with scattered areas of infiltrate in the right upper and right middle lobe 2. Panlobular emphysematous changes with scattered areas of scarring 3. Scattered small pulmonary nodules as described above most of which are unchanged with a new 8 mm nodular opacity in the right middle lobe. Follow-up suggested to confirm stability. 4. Mild adenopathy in the upper abdomen. Soft tissue density adjacent to the tail the pancreas of uncertain etiology not significantly changed Dictated by: George Alva MD 06/24/2021 15:34 George Alva MD in [place] 06/24/2021 15:34
--- NOTE | 2021-06-24 06:58 | HMH.ACPN2 ---
Internal Medicine - PN: Subj *Date: 06/24/21 *Time: 06:59 Interval history: Since admission patient had fever to 101.7 although defervesced. She reports not sleeping well due to her cough. Sputum was blood-tinged according to nursing notes and patient confirms this Exam Vital signs and Labs for Last 24 Hours: Temp Pulse Resp BP Pulse Ox 98.9 F 104 H 20 153/83 H 98 06/24/21 04:00 06/24/21 04:00 06/24/21 04:00 06/24/21 04:00 06/24/21 04:00 Laboratory Results - last 24 hr 06/23/21 10:10: WBC 11.3 H, RBC 3.26 L, Hgb 10.9 L, Hct 33.0 L, MCV 101.3 H, MCH 33.3 H, MCHC 32.9, RDW 14.6, Plt Count 277, MPV 8.9, Neut % (Auto) 90.0 H, Lymph % (Auto) 6.1 L, [place] % (Auto) 3.4, Eos % (Auto) 0.3, Baso % (Auto) 0.2, Neut # (Auto) 10.2 H, Lymph # (Auto) 0.7, [place] # (Auto) 0.4, Eos # (Auto) 0.0, Baso # (Auto) 0.0, Total Counted 100, Neutrophils % (Manual) 93 H, Lymphocytes % (Manual) 5 L, Monocytes % (Manual) 2, Platelet Estimate Normal, Anisocytosis 1+, Macrocytosis 1+ 06/23/21 10:10: Sodium 144, Potassium 3.6, Chloride 111 H, Carbon Dioxide 16 L, Anion Gap 20.6 H, BUN 14 D, Creatinine 1.00, Estimated Creat Clear 65, Estimated GFR 57 L, Est GFR ( Amer) 68, Glucose 117 H, Calcium 9.2, Total Bilirubin 1.1, AST 42 H, ALT 22, Alkaline Phosphatase 63, Total Protein 7.9, Albumin 3.8, Globulin 4.1 H, Albumin/Globulin Ratio 0.9 L 06/23/21 10:20: Lactate 1.0 06/23/21 10:42: SARS-CoV-2 (PCR) Not detected, Influenza A Untype (PCR) Not detected, Influenza Type B (PCR) Not detected 06/24/21 06:02: WBC 8.5, RBC 3.18 L, Hgb 10.3 L, Hct 32.2 L, MCV 101.3 H, MCH 32.4 H, MCHC 32.0, RDW 15.0, Plt Count 286, MPV 8.4, Neut % (Auto) 83.6 H, Lymph % (Auto) 9.7 L, [place] % (Auto) 5.5, Eos % (Auto) 0.8, Baso % (Auto) 0.3, Neut # (Auto) 7.1, Lymph # (Auto) 0.8, [place] # (Auto) 0.5, Eos # (Auto) 0.1, Baso # (Auto) 0.0 06/24/21 06:02: Sodium 143, Potassium 3.4 L, Chloride 116 H, Carbon Dioxide 15 L, Anion Gap 15.4 H, BUN 8 D, Creatinine 0.60 D, Estimated Creat Clear 108, Estimated GFR 102, Est GFR ( Amer) 123 D, Glucose 140 H, Calcium 8.4 I & O for Last 24 hours: Intake & Output 06/21/21 06/22/21 06/23/21 06/24/21 11:59 11:59 11:59 11:59 Intake Total 300 / 300 Balance 300 / 300 Weight 152 lb 150 lb 12.714 oz Microbiology Reports for the Last 24 Hours: Microbiology 06/23/21 19:46 Sputum - Expectorated Sputum Gram Stain - Final Narrative: Patient continues to look like she does not feel well. Lung exam reveals left basilar rales. Heart has a regular rate and rhythm. Abdomen is soft. Assessment and Plan (1) Pneumonia Status: Acute Qualifiers: Pneumonia type: due to unspecified organism Laterality: left Lung location: lower lobe of lung Qualified Code(s): J18.9 - Pneumonia, unspecified organism Category: Medical Code(s): J18.9 - Pneumonia, unspecified organism (2) Anemia Status: Acute Qualifiers: Anemia type: unspecified type Qualified Code(s): D64.9 - Anemia, unspecified Category: Medical Code(s): D64.9 - Anemia, unspecified (3) Cardiac pacemaker in situ Status: Acute Category: Medical Code(s): Z95.0 - Presence of cardiac pacemaker (4) Coronary artery disease Status: Acute Qualifiers: Coronary Disease-Associated Artery/Lesion type: [place] artery [place] vs. transplanted heart: [place] heart Associated angina: without angina Qualified Code(s): I25.10 - Atherosclerotic heart disease of [place] coronary artery without angina pectoris Category: Medical Code(s): I25.10 - Atherosclerotic heart disease of [place] coronary artery without angina pectoris (5) Ischemic cardiomyopathy Status: Chronic Category: Medical Code(s): I25.5 - Ischemic cardiomyopathy - Assessment and plan all Dx Assessment and Plan for all problems:: 1. CT scan chest today to rule out associated PE due to hemoptysis 2. Continue cefepime and Vanco while awaiting sputum and blood c
[2021-06-24 08:00] VITALS: BP 159/97; PULSE 100; RESP 22; TEMP 36.8; O2SAT 98
--- NOTE | 2021-06-24 08:27 | P.CONPHA_ITS ---
[facility] Pharmacy VTE Monitoring - Patient Demographics Admission date: 06/23/21 Report Date: 06/24/21 Time: 08:27 Allergies/Adverse Reactions: Patient Allergies No Known Allergies Allergy (Verified 06/23/21 16:10) Height: 1.63 m Weight: 68.399 kg Patient Problems: Current Active Problems Pneumonia (Acute) Cardiac pacemaker in situ (Acute) Coronary artery disease (Acute) Ischemic cardiomyopathy (Chronic) Anemia (Acute) - VTE Risk Labs: VTE Related Lab Results Hgb 10.3 g/dL (12.2-16.2) L 06/24/21 06:02 Hct 32.2 % (37.0-47.0) L 06/24/21 06:02 Plt Count 286 K/mm3 (142-424) 06/24/21 06:02 BUN 8 mg/dl (7-17) D 06/24/21 06:02 Creatinine 0.60 mg/dl (0.52-1.04) D 06/24/21 06:02 Estimated Creat Clear 108 mL/min (50-200) 06/24/21 06:02 Was VTE Risk Assessment Performed: Yes VTE Score: 6 VTE Risk Level: Moderate Risk - Prophylaxis VTE Prophylaxis Ordered?: Yes Types of VTE Prophylaxis: TEDS Knee High Location of Applied Device: Bilateral Lower Extremeties
--- NOTE | 2021-06-24 10:58 | HMH.PHACONS ---
- Pharmacy Consult Date: 06/24/21 Time: 10:59 Referring provider: DR. MAGANA Reason for Consult:: VANCOMYCIN DOSE CHANGE DUE TO IMPROVED RENAL FUNCTION Allergies and ADEs:: Allergies Allergy/AdvReac Type Severity Reaction Status Date / Time No Known Allergies Allergy Verified 06/23/21 16:10 Home Medications:: Home Medications Medication Instructions Recorded Confirmed Type escitalopram oxalate 10 mg tablet 10 mg PO DAILY 30 Days #30 12/20/17 06/23/21 History hydrocodone 5 mg-acetaminophen 325 5 mg PO Q6H PRN 8 Days #30 12/20/17 06/23/21 History mg tablet nitroglycerin 0.4 mg sublingual 0.4 mg SUBLINGUAL Q5M PRN 12/20/17 06/23/21 History tablet pantoprazole 40 mg tablet,delayed 40 mg PO DAILY 30 Days #30 12/20/17 06/23/21 History release tizanidine 4 mg tablet 4 mg PO TID PRN 30 Days #60 12/20/17 06/23/21 History topiramate 100 mg tablet 100 mg PO DAILY 30 Days #60 12/20/17 06/23/21 History Tramadol HCl [Tramadol 50mg 1 tab PO Q6HP PRN 02/09/19 06/23/21 History Tab] azaTHIOprine [Azathioprine] 50 mg PO BID 02/09/19 06/23/21 History Atorvastatin Calcium [Lipitor 40mg 40 mg PO HS 08/04/19 06/23/21 History Tab] Albuterol Sulfate [Albuterol 2 puffs PO Q4H PRN 06/23/21 06/23/21 History Sulfate Hfa] Aspirin [Low Dose Aspirin EC] 81 mg PO DAILY 06/23/21 06/23/21 History Clopidogrel Bisulfate [Plavix 75mg 75 mg PO DAILY 06/23/21 06/23/21 History Tab] Metoprolol Succinate [Metoprolol 25 mg PO DAILY 06/23/21 06/23/21 History Succinate 25mg Tablet*] Spironolactone [Aldactone 25mg 25 mg PO DAILY 06/23/21 06/23/21 History Tab] lisinopriL [Zestril 5mg 5 mg PO DAILY 06/23/21 06/23/21 History Tablet] Height: 1.63 m Weight: 68.399 kg Laboratory Results:: Laboratory Results - last 24 hr 06/23/21 10:42: SARS-CoV-2 (PCR) Not detected, Influenza A Untype (PCR) Not detected, Influenza Type B (PCR) Not detected 06/24/21 06:02: WBC 8.5, RBC 3.18 L, Hgb 10.3 L, Hct 32.2 L, MCV 101.3 H, MCH 32.4 H, MCHC 32.0, RDW 15.0, Plt Count 286, MPV 8.4, Neut % (Auto) 83.6 H, Lymph % (Auto) 9.7 L, [place] % (Auto) 5.5, Eos % (Auto) 0.8, Baso % (Auto) 0.3, Neut # (Auto) 7.1, Lymph # (Auto) 0.8, [place] # (Auto) 0.5, Eos # (Auto) 0.1, Baso # (Auto) 0.0 06/24/21 06:02: Sodium 143, Potassium 3.4 L, Chloride 116 H, Carbon Dioxide 15 L, Anion Gap 15.4 H, BUN 8 D, Creatinine 0.60 D, Estimated Creat Clear 108, Estimated GFR 102, Est GFR ( Amer) 123 D, Glucose 140 H, Calcium 8.4 Medical History: Reports:: Anxiety, Cancer, Congestive Heart Failure, Coronary Artery Disease, Depression, Hyperlipidemia, Hypertension, Internal Pacemaker, Migraine, Myocardial Infarction Denies:: Diabetes Mellitus Type 1, Diabetes Mellitus Type 2, MRSA, Seizures Assessment and Plan (1) Pneumonia Status: Acute Qualifiers: Pneumonia type: due to unspecified organism Laterality: left Lung location: lower lobe of lung Qualified Code(s): J18.9 - Pneumonia, unspecified organism Category: Medical Code(s): J18.9 - Pneumonia, unspecified organism (2) Anemia Status: Acute Qualifiers: Anemia type: unspecified type Qualified Code(s): D64.9 - Anemia, unspecified Category: Medical Code(s): D64.9 - Anemia, unspecified (3) Cardiac pacemaker in situ Status: Acute Category: Medical Code(s): Z95.0 - Presence of cardiac pacemaker (4) Coronary artery disease Status: Acute Qualifiers: Coronary Disease-Associated Artery/Lesion type: [place] artery [place] vs. transplanted heart: [place] heart Associated angina: without angina Qualified Code(s): I25.10 - Atherosclerotic heart disease of [place] coronary artery without angina pectoris Category: Medical Code(s): I25.10 - Atherosclerotic heart disease of [place] coronary artery without angina pectoris (5) Ischemic cardiomyopathy Status: Chronic Category: Medical Code(s): I25.5 - Ischemic cardiomyopathy - Assessment and plan al
[2021-06-24 11:11] VITALS: BP 150/89; PULSE 92; RESP 20; TEMP 36.8; O2SAT 96
[2021-06-24 11:56] VITALS: BMI 25.7
[2021-06-24 15:57] VITALS: BP 166/87; PULSE 94; RESP 20; TEMP 36.7; O2SAT 99
[2021-06-24 20:00] VITALS: BP 153/86; PULSE 99; RESP 20; TEMP 36.9; O2SAT 98
[2021-06-25] VITALS: BP 164/80; PULSE 81; RESP 19; TEMP 36.6; O2SAT 100
--- NOTE | 2021-06-25 03:55 | PC.NURSE ---
Patient is A&Ox4. Patient has left sided rhonchi noted in her mid to lower base of lung, patient has an intermittent cough at times that is unproductive. Patient has rested well this shift with no complaints voiced. Call light within reach, VSS, will continue to monitor.
[2021-06-25 04:00] VITALS: BP 147/88; PULSE 95; RESP 17; TEMP 36.9; O2SAT 98
--- NOTE | 2021-06-25 04:03 | PC.NURSE ---
Patient is A&Ox4. Patient has a intermittent nonproductive cough at times. Fine crackles are noted on her left side of lung base; patient is diminished throughout. VSS, call light within reach, will continue to monitor.
[2021-06-25 05:18] VITALS: BMI 25.9
[2021-06-25 07:24] LABS: Blood Urea Nitrogen 8 mg/dl (7-17); Calcium 8.7 mg/dl (8.4-10.2); Carbon Dioxide 15 mmol/L (22.0-30.0); Chloride 116 mmol/L (98-107); Creatinine Clearance Estimated 93 mL/min (50-200); Estimated Glomerular Filt Rate 85 ml/min (>60); GFR (African American) 103 ML/MIN (>60); Glucose 163 mg/dl (74-100); Sodium 146 mmol/L (136-145)
[2021-06-25 07:43] LABS: Basophils % 0.5 % (0.1-2.0); Eosinophils # 0.1 K/mm3 (0.0-0.4); Eosinophils % 1.4 % (0.1-12.0); Hematocrit 30.2 % (37.0-47.0); Hemoglobin 9.7 g/dL (12.2-16.2); Lymphocytes % 14.6 % (10-50); Mean Corpuscular Hemoglobin 32.6 pg (27.0-31.2); Mean Corpuscular Volume 101.8 fl (81-99); Mean Platelet Volume 8.7 fl (7.4-10.4); Monocytes # 0.5 K/mm3 (0.1-1.0); Monocytes % 7.8 % (1.7-9.3); Neutrophils % 75.8 % (37.0-80.0); Platelet Count 309 K/mm3 (142-424); Red Blood Count 2.96 M/mm3 (4.20-5.40); Red Cell Distribution Width 15.1 % (11.5-17.5); White Blood Count 6.7 K/mm3 (4.8-10.8)
[2021-06-25 08:00] VITALS: BP 161/99; PULSE 91; RESP 21; TEMP 36.7; O2SAT 98
--- NOTE | 2021-06-25 08:20 | P.PN_ITS ---
Internal Medicine - PN: Subj *Date: 06/25/21 *Time: 08:20 Interval history: Patient is had no acute events over the last 24 hours. She reports continued chest discomfort with deep breathing. CT scan showed left-sided parapneumonic effusion but no pulmonary embolism. Patient continues to have cough. She reports decrease in sputum production. She has been afebrile for 24 hours. She denies chills. She admits she feels weak Exam Vital signs and Labs for Last 24 Hours: Temp Pulse Resp BP Pulse Ox 98.1 F 91 H 21 161/99 H 98 06/25/21 08:00 06/25/21 08:00 06/25/21 08:00 06/25/21 08:00 06/25/21 08:00 Laboratory Results - last 24 hr 06/25/21 06:59: WBC 6.7, RBC 2.96 L, Hgb 9.7 L, Hct 30.2 L, MCV 101.8 H, MCH 32.6 H, MCHC 32.0, RDW 15.1, Plt Count 309, MPV 8.7, Neut % (Auto) 75.8, Lymph % (Auto) 14.6, [place] % (Auto) 7.8, Eos % (Auto) 1.4, Baso % (Auto) 0.5, Neut # (Auto) 5.0, Lymph # (Auto) 1.0, [place] # (Auto) 0.5, Eos # (Auto) 0.1, Baso # (Auto) 0.0 06/25/21 06:59: Sodium 146 H, Potassium 4.0, Chloride 116 H, Carbon Dioxide 15 L , Anion Gap 19.0 H, BUN 8, Creatinine 0.70, Estimated Creat Clear 93, Estimated GFR 85, Est GFR ( Amer) 103, Glucose 163 H, Calcium 8.7 I & O for Last 24 hours: Intake & Output 06/22/21 06/23/21 06/24/21 06/25/21 11:59 11:59 11:59 11:59 Intake Total 780 / 780 600 / 600 Balance 780 / 780 600 / 600 Weight 152 lb 150 lb 12.704 oz 151 lb 9 oz - Constitutional no acute distress - *Routine Respiratory Exam Present: rales (Left base and laterally) - *Routine Cardiovascular Exam Present: RRR Assessment and Plan (1) Pneumonia Status: Acute Qualifiers: Pneumonia type: due to unspecified organism Laterality: left Lung location: lower lobe of lung Qualified Code(s): J18.9 - Pneumonia, unspecified organism Category: Medical Code(s): J18.9 - Pneumonia, unspecified organism (2) Anemia Status: Acute Qualifiers: Anemia type: unspecified type Qualified Code(s): D64.9 - Anemia, unspecified Category: Medical Code(s): D64.9 - Anemia, unspecified (3) Cardiac pacemaker in situ Status: Acute Category: Medical Code(s): Z95.0 - Presence of cardiac pacemaker (4) Coronary artery disease Status: Acute Qualifiers: Coronary Disease-Associated Artery/Lesion type: [place] artery [place] vs. transplanted heart: [place] heart Associated angina: without angina Qualified Code(s): I25.10 - Atherosclerotic heart disease of [place] coronary artery without angina pectoris Category: Medical Code(s): I25.10 - Atherosclerotic heart disease of [place] coronary artery without angina pectoris (5) Ischemic cardiomyopathy Status: Chronic Category: Medical Code(s): I25.5 - Ischemic cardiomyopathy (6) Parapneumonic effusion Status: Acute Category: Medical Code(s): J18.9 - Pneumonia, unspecified organism; J91.8 - Pleural effusion in other conditions classified elsewhere - Assessment and plan all Dx Assessment and Plan for all problems:: Patient has improved. White count has trended down and she has been afebrile for over 24 hours. She is satting in the high 90s on room air. Patient will be discharged home and follow-up in my office in 48 hours
--- NOTE | 2021-06-25 08:22 | HMH.DCSUM ---
General - General Admission date:: 06/23/21 Discharge date: 06/25/21 HPI HPI: 61 year old female seen in office this week after UTC and ER visit and diagnosed with LLL CAP. Patient was having fevers from 102-104 which made her delirious. Patient was seen in office daily from 06/22 through 06/24 and treated with IM ceftriaxone and oral azithromycin. WBC in 14,000. Patient was not showing signs of improvment and was admitted through the ER. Patient reports brown sputum production along with fevers, chills, cough, and mild dyspnea. Hospital Course Hospital Course: Patient was admitted and placed on cefepime and vancomycin. Blood and sputum cultures were ordered. Patient did not require supplemental oxygen. Patient was admitted for observation and after 48 hours had completely defervesced, white blood cell count had returned to normal. Patient did have some hemoptysis along with brown sputum and a CTA was ordered. Patient did not have a pulmonary embolism but did have a left-sided parapneumonic effusion. After 48 hours of treatment patient felt better although was weak. We had a long discussion about her ability to care for herself at home and patient felt she was capable. Patient was discharged home. She will finish her course of Levaquin. She will follow-up in my office in 48 hours. Blood and sputum cultures had not returned at the time of discharge Objective Vital signs: Temp Pulse Resp BP Pulse Ox 98.1 F 91 H 21 161/99 H 98 06/25/21 08:00 06/25/21 08:00 06/25/21 08:00 06/25/21 08:00 06/25/21 08:00 Results Labs on day of discharge: Labs from last 24 hours 06/25/21 06/25/21 06:59 06:59 WBC 6.7 RBC 2.96 L Hgb 9.7 L Hct 30.2 L MCV 101.8 H MCH 32.6 H MCHC 32.0 RDW 15.1 Plt Count 309 MPV 8.7 Neut % (Auto) 75.8 Lymph % (Auto) 14.6 [place] % (Auto) 7.8 Eos % (Auto) 1.4 Baso % (Auto) 0.5 Neut # (Auto) 5.0 Lymph # (Auto) 1.0 [place] # (Auto) 0.5 Eos # (Auto) 0.1 Baso # (Auto) 0.0 Sodium 146 H Potassium 4.0 Chloride 116 H Carbon Dioxide 15 L Anion Gap 19.0 H BUN 8 Creatinine 0.70 Estimated Creat Clear 93 Estimated GFR 85 Est GFR ( Amer) 103 Glucose 163 H Calcium 8.7 DS: Diagnosis - Discharge Diagnosis (1) Pneumonia Status: Acute (2) Anemia Status: Acute (3) Cardiac pacemaker in situ Status: Acute (4) Coronary artery disease Status: Acute (5) Ischemic cardiomyopathy Status: Chronic (6) Parapneumonic effusion Status: Acute Discharge Plan - Patient Discharge Instructions ACTIVITY: Continue current activity DIET: continue same diet - Follow up Plan Follow up with: Bharat Roberts MD [Primary Care Provider] - 2 days Disposition: Home, Self-Care Condition at discharge:: Improved Home Medications: Home Medications Medication Instructions Recorded Confirmed Type escitalopram oxalate 10 mg tablet 10 mg PO DAILY 30 Days #30 12/20/17 06/23/21 History hydrocodone 5 mg-acetaminophen 325 5 mg PO Q6H PRN 8 Days #30 12/20/17 06/23/21 History mg tablet nitroglycerin 0.4 mg sublingual 0.4 mg SUBLINGUAL Q5M PRN 12/20/17 06/23/21 History tablet pantoprazole 40 mg tablet,delayed 40 mg PO DAILY 30 Days #30 12/20/17 06/23/21 History release tizanidine 4 mg tablet 4 mg PO TID PRN 30 Days #60 12/20/17 06/23/21 History topiramate 100 mg tablet 100 mg PO DAILY 30 Days #60 12/20/17 06/23/21 History Tramadol HCl [Tramadol 50mg 1 tab PO Q6HP PRN 02/09/19 06/23/21 History Tab] azaTHIOprine [Azathioprine] 50 mg PO BID 02/09/19 06/23/21 History Atorvastatin Calcium [Lipitor 40mg 40 mg PO HS 08/04/19 06/23/21 History Tab] Albuterol Sulfate [Albuterol 2 puffs PO Q4H PRN 06/23/21 06/23/21 History Sulfate Hfa] Aspirin [Low Dose Aspirin EC] 81 mg PO DAILY 06/23/21 06/23/21 History Clopidogrel Bisulfate [Plavix 75mg 75 mg PO DAILY 06/23/21 06/23/21 History Tab
== END 2021-06-25 11:41 | disposition home or self-care (01) ==
LOC: ER 11:10 → 2ND 15:04
PROVIDERS: Admitting Provider Family Medicine; Emergency Provider Emergency Medicine; PCP Family Medicine; Visit Provider Family Medicine
DX: J18.9 Pneumonia, unspecified organism (principal); I11.0 Hypertensive heart disease with heart failure; I50.9 Heart failure, unspecified; Z95.0 Presence of cardiac pacemaker; I25.5 Ischemic cardiomyopathy; Z20.822 Contact with and (suspected) exposure to COVID-19; G43.909 Migraine, unspecified, not intractable, without status migrainosus; Z79.01 Long term (current) use of anticoagulants; J91.8 Pleural effusion in other conditions classified elsewhere; I25.10 Atherosclerotic heart disease of native coronary artery without angina pectoris
CPT/HCPCS: G0378; 36415; 71046; 71275; 80048; 80053; 80202; 83605; 85007; 85025; 87040; 87070; 87205; 96365; 96367; 99284; C9803; J3370; Q9967; U0003; U0005

== ENCOUNTER → 2021-06-29 14:24 | Outpatient (CLI) | payer MEDICARE, SELFPAY ==
[2021-06-29 15:09] LABS: Basophils % 0.3 % (0.1-2.0); Eosinophils # 0.1 K/mm3 (0.0-0.4); Eosinophils % 1.3 % (0.1-12.0); Hematocrit 31.4 % (37.0-47.0); Hemoglobin 9.9 g/dL (12.2-16.2); Lymphocytes # 1.3 K/mm3 (0.7-4.5); Lymphocytes % 13.1 % (10-50); Mean Corpuscular HGB Conc 31.7 g/dL (31.8-35.4); Mean Corpuscular Hemoglobin 32.2 pg (27.0-31.2); Mean Corpuscular Volume 101.6 fl (81-99); Monocytes # 0.6 K/mm3 (0.1-1.0); Monocytes % 6.2 % (1.7-9.3); Neutrophils # 7.8 K/mm3 (1.8-7.8); Neutrophils % 79.1 % (37.0-80.0); Platelet Count 445 K/mm3 (142-424); Red Blood Count 3.08 M/mm3 (4.20-5.40); Red Cell Distribution Width 15.7 % (11.5-17.5); White Blood Count 9.9 K/mm3 (4.8-10.8)
[2021-06-29 15:25] LABS: Alanine Aminotransferase 40 U/L (12-78); Albumin Level 3.3 g/dl (3.5-5.0); Albumin/Globulin Ratio 0.9 (1.1-1.8); Alkaline Phosphatase 101 U/L (38-126); Aspartate Amino Transferase 38 U/L (14-36); Bilirubin,Total 1.3 mg/dl (0.2-1.3); Blood Urea Nitrogen 9 mg/dl (7-17); Calcium 8.8 mg/dl (8.4-10.2); Carbon Dioxide 18 mmol/L (22.0-30.0); Chloride 111 mmol/L (98-107); Estimated Glomerular Filt Rate 102 ml/min (>60); GFR (African American) 123 ML/MIN (>60); Globulin 3.6 g/dL (1.3-3.2); Glucose 84 mg/dl (74-100); Sodium 141 mmol/L (136-145); Total Protein,Serum 6.9 g/dl (6.3-8.2)
[2021-06-29 15:30] LABS: C-Reactive Protein 120.3 mg/L (0-4)
[2021-06-29 16:11] LABS: Erythrocyte Sedimentation Rate > 140 mm/hr (0-30)
[2021-07-01 12:17] LABS: Complement C3 162 mg/dL (82-167)
[2021-07-01 14:12] LABS: Anti-DNA (DS) Ab Qn <1 IU/mL (0-9)
== END ==
PROVIDERS: Visit Provider Internal Medicine Rheumatology
DX: I21.9 Acute myocardial infarction, unspecified (principal); E53.8 Deficiency of other specified B group vitamins; E55.9 Vitamin D deficiency, unspecified; M32.9 Systemic lupus erythematosus, unspecified; M85.80 Other specified disorders of bone density and structure, unspecified site
CPT/HCPCS: 36415; 80053; 85025; 85651; 86140; 86161; 86225

== ENCOUNTER → 2021-06-30 14:16 | Outpatient (CLI) | payer MEDICARE, SELFPAY ==
[2021-06-30 14:20] LABS: Microscopic, Urine URINE MICROSCOPIC (MICROSCOPIC)
[2021-06-30 15:05] LABS: Appearance,Urine CLEAR (Clear); Bilirubin,Urine Negative (Negative); Blood, Urine Negative (Negative); Color,Urine YELLOW (Yellow); Glucose,Urine (UA) Negative (Negative); Ketones,Urine TRACE (Negative); Leukocyte Esterase,Urine Negative (Negative); Nitrate,Urine Negative (Negative); Protein,Urine Negative (Negative); Specific Gravity, Urine 1.015 (1.005-1.030); Urobilinogen,Urine 0.2 EU/dl (0.2)
[2021-06-30 15:45] LABS: Bacteria,Urine Trace /lpf
== END ==
PROVIDERS: Visit Provider Internal Medicine Rheumatology
DX: I21.9 Acute myocardial infarction, unspecified (principal); M32.9 Systemic lupus erythematosus, unspecified; M85.80 Other specified disorders of bone density and structure, unspecified site; E53.8 Deficiency of other specified B group vitamins; E55.9 Vitamin D deficiency, unspecified
CPT/HCPCS: 81001

== ENCOUNTER → 2021-07-04 14:11 | Outpatient (CLI) | payer MEDICARE, SELFPAY ==
--- NOTE | 2021-07-04 14:15 | XR_ITS ---
PROCEDURE: XR CHEST 2V CLINICAL HISTORY: PNEUMONIA OF LLL DUE TO INFECTIOUS ORGANISM,PLEURAL EFFUSION COMPARISON: CR XR CHEST PORTABLE from 08/08/2019 CR XR CHEST 2V from 06/20/2021 CR XR CHEST 2V from 06/23/[address] ANGIO CHEST PE PROTOCOL from 06/24/2021 FINDINGS: There has been a prior CABG. There is fracture of the 2 superior most median sternotomy wires normal heart size. Bipolar pacemaker is present from left subclavian approach. Old granulomatous disease with calcified hilar lymph nodes and calcified granulomas there has been some improvement in the left lower lobe pneumonia with some residual present. No effusion.. No acute bony abnormalities. IMPRESSION: Improving left lower lobe pneumonia Dictated by: George Alva MD 07/04/2021 17:28 George Alva MD in [place] 07/04/2021 17:28
== END ==
PROVIDERS: PCP Family Medicine; Visit Provider Family Medicine
DX: J18.9 Pneumonia, unspecified organism (principal); J91.8 Pleural effusion in other conditions classified elsewhere
CPT/HCPCS: 71046

== ENCOUNTER → 2021-11-25 14:18 | Outpatient (CLI) | payer MEDICARE, SELFPAY ==
--- NOTE | 2021-11-25 14:23 | XR_ITS ---
FINAL REPORT CLINICAL HISTORY: SOB FINDINGS: Two views of the chest were obtained. A left subclavian pacemaker is present. Mild cardiomegaly is noted. There has been prior median sternotomy. There are calcified right hilar lymph nodes. No acute pulmonary abnormality is identified. There is no pneumothorax. The bony thorax is intact. IMPRESSION: No acute cardiopulmonary process. Reviewed, Interpreted and Dictated by Denver Crystal MD Transcribed by Luis Chung Authenticated by Denver Crystal MD on 11/25/2021 03:40:42 PM [facility]
== END ==
PROVIDERS: PCP Nurse Practitioner Family; Visit Provider Nurse Practitioner Family
DX: R06.02 Shortness of breath (principal)
CPT/HCPCS: 71046

== ENCOUNTER → 2022-02-06 09:36 | Outpatient (CLI) | payer MEDICARE, SELFPAY ==
[2022-02-06 09:43] LABS: Microscopic, Urine URINE MICROSCOPIC (MICROSCOPIC)
[2022-02-06 10:08] LABS: Appearance,Urine CLEAR (Clear); Bilirubin,Urine Negative (Negative); Blood, Urine Negative (Negative); Color,Urine YELLOW (Yellow); Glucose,Urine (UA) Negative (Negative); Ketones,Urine Negative (Negative); Leukocyte Esterase,Urine TRACE (Negative); Nitrate,Urine Negative (Negative); Protein,Urine TRACE (Negative); Specific Gravity, Urine 1.015 (1.005-1.030)
[2022-02-06 10:11] LABS: Basophils # 0.1 K/mm3 (0-0.2); Basophils % 1.3 % (0.1-2.0); Eosinophils # 0.2 K/mm3 (0.0-0.4); Eosinophils % 4.7 % (0.1-12.0); Hematocrit 37.5 % (37.0-47.0); Hemoglobin 12.4 g/dL (12.2-16.2); Lymphocytes # 1.2 K/mm3 (0.7-4.5); Lymphocytes % 22.7 % (10-50); Mean Corpuscular Hemoglobin 32.8 pg (27.0-31.2); Mean Corpuscular Volume 99.5 fl (81-99); Mean Platelet Volume 7.6 fl (7.4-10.4); Monocytes # 0.3 K/mm3 (0.1-1.0); Monocytes % 6.3 % (1.7-9.3); Neutrophils # 3.3 K/mm3 (1.8-7.8); Neutrophils % 64.9 % (37.0-80.0); Platelet Count 289 K/mm3 (142-424); Red Blood Count 3.77 M/mm3 (4.20-5.40); Red Cell Distribution Width 14.6 % (11.5-17.5); White Blood Count 5.1 K/mm3 (4.8-10.8)
[2022-02-06 10:33] LABS: Bacteria,Urine Trace /lpf; WBC,Urine Occasional #/hpf (0-3)
[2022-02-06 10:47] LABS: Alanine Aminotransferase 16 U/L (12-78); Albumin Level 4.2 g/dl (3.5-5.0); Albumin/Globulin Ratio 1.3 (1.1-1.8); Alkaline Phosphatase 74 U/L (38-126); Anion Gap 11.6 mEq/L (5-15); Aspartate Amino Transferase 24 U/L (14-36); Bilirubin,Total 0.7 mg/dl (0.2-1.3); Blood Urea Nitrogen 10 mg/dl (7-17); Calcium 9.2 mg/dl (8.4-10.2); Carbon Dioxide 22 mmol/L (22.0-30.0); Chloride 111 mmol/L (98-107); Estimated Glomerular Filt Rate 85 ml/min (>60); GFR (African American) 103 ML/MIN (>60); Globulin 3.3 g/dL (1.3-3.2); Glucose 117 mg/dl (74-100); Potassium 3.6 mmoL/L (3.5-5.1); Sodium 141 mmol/L (136-145); Total Protein,Serum 7.5 g/dl (6.3-8.2)
[2022-02-06 10:53] LABS: C-Reactive Protein 1.3 mg/L (0-4)
[2022-02-06 11:04] LABS: 25-OH Vitamin D, Total 41.3 ng/mL (30-100)
[2022-02-06 11:31] LABS: Erythrocyte Sedimentation Rate 40 mm/hr (0-30)
[2022-02-06 11:54] LABS: Vitamin B12 303 pg/mL (239-931)
[2022-02-06 11:58] LABS: Folate 5.12 ng/mL
[2022-02-07 08:19] LABS: Complement C3 130 mg/dL (82-167)
[2022-02-10 10:58] LABS: Miscellaneous Test NEGATIVE
== END ==
PROVIDERS: Visit Provider Internal Medicine Rheumatology
DX: M32.9 Systemic lupus erythematosus, unspecified (principal); E53.8 Deficiency of other specified B group vitamins; E55.9 Vitamin D deficiency, unspecified; Z79.899 Other long term (current) drug therapy
CPT/HCPCS: 36415; 80053; 81001; 82306; 82607; 82746; 85025; 85651; 86140; 86161; 86225

== ENCOUNTER 2022-03-03 21:11 | Emergency (ER) | payer MEDICARE, SELFPAY ==
[2022-03-03 21:12] VITALS: BP 191/94; PULSE 91; RESP 18; TEMP 36.8; O2SAT 96; BMI 24.9
[2022-03-03 21:26] VITALS: PULSE 87; O2SAT 100
--- NOTE | 2022-03-03 21:35 | CT_ITS ---
PROCEDURE INFORMATION: Exam: CT Abdomen And Pelvis Without Contrast Exam date and time: 03/03/2022 9:50 PM Age: 61 years old Clinical indication: Abdominal pain; Flank; Other: Bilateral; Prior surgery; Surgery date: 6+ months; Surgery type: Gb appendix hysterectomy spleen pacemaker; Additional info: Back pain TECHNIQUE: Imaging protocol: Computed tomography of the abdomen and pelvis without contrast. Radiation optimization: All CT scans at this facility use at least one of these dose optimization techniques: automated exposure control; mA and/or kV adjustment per patient size (includes targeted exams where dose is matched to clinical indication); or iterative reconstruction. COMPARISON: CT ANGIO CHEST PE PROTOCOL 06/24/2021 8:32 AM FINDINGS: Lungs: Probable atelectatic changes at the right lung base. Liver: No contour deforming lesion. Gallbladder and bile ducts: Cholecystectomy. Pancreas: No peripancreatic inflammatory changes. Spleen: Splenectomy. Adrenal glands: Bilateral adrenal thickening. Kidneys and ureters: No hydronephrosis. Stomach and bowel: Non-obstructive bowel gas pattern. Appendix: What appears to be appendix is unremarkable. Intraperitoneal space: No free air. No ascites. Surgical clips in the right inguinal region. Vasculature: Atherosclerotic calcifications. Lymph nodes: No grossly enlarged lymph nodes. Urinary bladder: Unremarkable as visualized. Reproductive: Significant soft tissue fullness in the region of hysterectomy bed, indeterminate, malignancy is possible. Bones/joints: Median sternotomy. Soft tissues: Evaluation of solid abdominal viscera is limited due to lack of intravenous contrast. small fat containing anterior abdominal wall hernia. IMPRESSION: Significant soft tissue fullness in the region of hysterectomy bed, indeterminate, malignancy is possible. Recommend correlation with MR
--- NOTE | 2022-03-03 21:51 | PC.NURSE ---
Pt gone to RAD
--- NOTE | 2022-03-03 21:57 | PC.NURSE ---
Pt back from RAD
--- NOTE | 2022-03-03 22:00 | HMH.EDBACK ---
ED Disposition Clinical Impression: Pelvic mass in female UTI (urinary tract infection) Qualifiers: Urinary tract infection type: site unspecified Hematuria presence: without hematuria Qualified Code(s): N39.0 - Urinary tract infection, site not specified Disposition: Home, Self-Care Condition on Discharge: Good Instructions: DI for Low Back Pain, DI for Pelvic Pain Additional Instructions: call dr rosas sunday am Prescriptions: levoFLOXacin [Levaquin 500mg tab] 500 mg PO DAILY #7 tab Transmission Status: Pending to [facility] Referrals: Fay Srinivasan MD [Primary Care Provider] - Sheila Rosas MD [Staff Physician] - - Critical Care Critical Care Time: No Attestation: On 03/03/22, the high probability of a clinically significant, sudden or life threatening deterioration of the following system(s) required my full and direct attention, intervention and personal management. The time I documented below is in addition to time spent performing reported procedures but includes the following listed in this critical care notation. Medical Decision Making - Medical Records Medical records reviewed: Yes: I reviewed the patient's medical records. - Baron Inquiry Pt receiving controlled substance: No Vital Signs: 03/03/22 21:12 Temperature 98.3 F Temperature Source Oral Pulse Rate [Right] 91 H Respiratory Rate 18 Blood Pressure [Right Arm] 191/94 H Blood Pressure Mean [Right Arm] 126 02 Sat by Pulse Oximetry 96 - Lab Data Lab results reviewed: Yes: I reviewed the patient's lab results. Lab Results 03/03/22 21:48: WBC 8.5, RBC 3.85 L, Hgb 12.1 L, Hct 37.6, MCV 97.6, MCH 31.3 H, MCHC 32.1, RDW 14.4, Plt Count 329, MPV 7.8, Neut % (Auto) 69.9, Lymph % (Auto) 19.5, [place] % (Auto) 5.7, Eos % (Auto) 3.5, Baso % (Auto) 1.4, Neut # (Auto) 5.9, Lymph # (Auto) 1.7, [place] # (Auto) 0.5, Eos # (Auto) 0.3, Baso # (Auto) 0.1, ESR 84 H 03/03/22 21:48: Sodium 139, Potassium 3.4 L, Chloride 107, Carbon Dioxide 22, Anion Gap 13.4, BUN 7, Creatinine 0.90, Estimated Creat Clear 69, Estimated GFR 64, Est GFR ( Amer) 77, Glucose 179 H, Calcium 9.3, Total Bilirubin 0.2, AST 23, ALT 15, Alkaline Phosphatase 80, C-Reactive Protein 8.3 H, Total Protein 8.2, Albumin 4.2, Globulin 4.0 H, Albumin/Globulin Ratio 1.1, Procalcitonin 0.056 03/03/22 22:19: Urine Color Yellow, Urine Appearance Clear, Urine pH 6.5, Ur Specific [place] 1.010, Urine Protein Negative, Urine Glucose (UA) Negative, Urine Ketones Negative, Urine Blood Negative, Urine Nitrate Negative, Urine Bilirubin Negative, Urine Urobilinogen 0.2, Ur Leukocyte Esterase 1+ A, Urine WBC 10-20 Result diagrams: 03/03/22 21:48 03/03/22 21:48 Orders (Tests/Meds): ED MEDICATIONS Discontinued Medications Generic Name Dose Route Start Last Admin Trade Name Walker PRN Reason Stop Dose Admin Hydrocodone Bitart/Acetaminophen 1 tab 03/03/22 22:50 03/03/22 22:53 Hydrocodone/Apap 5/325 Mg Tablet PO 03/03/22 22:51 1 tab ONCE ONE Administration Levofloxacin 500 mg 03/03/22 22:50 03/03/22 22:53 Levofloxacin 500mg Tab PO 03/03/22 22:51 500 mg ONCE ONE Administration ORDERS Category Date Time Status US transvaginal Stat Exams 03/03/22 22:43 Taken Urine Culture Stat Micro 03/03/22 22:19 Received - CT Data CT Scan: Abdomen, Pelvis Time Received: 00:[address] Reviewed: Yes: I have viewed the radiologist's interpretation Preliminary Findings: Abnormal (see report ) - US Data US Images: Pelvis ED US Reviewed: Yes: I have viewed radiologist's interpretation Preliminary Findings: Abnormal Pelvis Findings Narrative: see report Medical Decision Narrative: pelvic mass and will need to see homebirth midwife - also with uti Back Pain HPI - General Chief Complaint: Back Pain/Injury Stated Complaint: BACK PAIN Time Seen by Provider: 03/03/22 21:30 Mode of Arrival: Ambulatory Source of Information: Patient, Relative, Medical Record Limitations:
[2022-03-03 22:11] LABS: Alanine Aminotransferase 15 U/L (12-78); Albumin Level 4.2 g/dl (3.5-5.0); Albumin/Globulin Ratio 1.1 (1.1-1.8); Alkaline Phosphatase 80 U/L (38-126); Anion Gap 13.4 mEq/L (5-15); Aspartate Amino Transferase 23 U/L (14-36); Bilirubin,Total 0.2 mg/dl (0.2-1.3); Blood Urea Nitrogen 7 mg/dl (7-17); Calcium 9.3 mg/dl (8.4-10.2); Carbon Dioxide 22 mmol/L (22.0-30.0); Chloride 107 mmol/L (98-107); Creatinine Clearance Estimated 69 mL/min (50-200); Estimated Glomerular Filt Rate 64 ml/min (>60); GFR (African American) 77 ML/MIN (>60); Glucose 179 mg/dl (74-100); Potassium 3.4 mmoL/L (3.5-5.1); Sodium 139 mmol/L (136-145); Total Protein,Serum 8.2 g/dl (6.3-8.2)
[2022-03-03 22:16] LABS: C-Reactive Protein 8.3 mg/L (0-4)
[2022-03-03 22:22] LABS: Microscopic, Urine URINE MICROSCOPIC (MICROSCOPIC)
[2022-03-03 22:24] LABS: Appearance,Urine CLEAR (Clear); Bilirubin,Urine Negative (Negative); Blood, Urine Negative (Negative); Color,Urine YELLOW (Yellow); Glucose,Urine (UA) Negative (Negative); Ketones,Urine Negative (Negative); Leukocyte Esterase,Urine 1+ (Negative); Nitrate,Urine Negative (Negative); PH,Urine 6.5 (5.0-8.5); Protein,Urine Negative (Negative); Urobilinogen,Urine 0.2 EU/dl (0.2)
[2022-03-03 22:26] LABS: Erythrocyte Sedimentation Rate 84 mm/hr (0-30)
[2022-03-03 22:29] LABS: Basophils # 0.1 K/mm3 (0-0.2); Basophils % 1.4 % (0.1-2.0); Eosinophils # 0.3 K/mm3 (0.0-0.4); Eosinophils % 3.5 % (0.1-12.0); Hematocrit 37.6 % (37.0-47.0); Hemoglobin 12.1 g/dL (12.2-16.2); Lymphocytes # 1.7 K/mm3 (0.7-4.5); Lymphocytes % 19.5 % (10-50); Mean Corpuscular HGB Conc 32.1 g/dL (31.8-35.4); Mean Corpuscular Hemoglobin 31.3 pg (27.0-31.2); Mean Corpuscular Volume 97.6 fl (81-99); Mean Platelet Volume 7.8 fl (7.4-10.4); Monocytes # 0.5 K/mm3 (0.1-1.0); Monocytes % 5.7 % (1.7-9.3); Neutrophils # 5.9 K/mm3 (1.8-7.8); Neutrophils % 69.9 % (37.0-80.0); Platelet Count 329 K/mm3 (142-424); Procalcitonin 0.056 ng/mL (0.0-2.0); Red Blood Count 3.85 M/mm3 (4.20-5.40); Red Cell Distribution Width 14.4 % (11.5-17.5); White Blood Count 8.5 K/mm3 (4.8-10.8)
--- NOTE | 2022-03-03 22:43 | US_ITS ---
PROCEDURE INFORMATION: Exam: US Pelvis, Transvaginal Exam date and time: 03/03/2022 11:26 PM Age: 61 years old Clinical indication: Abdominal pain; Lower abdomen; Prior surgery; Surgery date: 6+ months; Surgery type: Hysterectomy, appendix, spleen; Additional info: Abnormal finding on CT, suspsion for malignancy TECHNIQUE: Imaging protocol: Real-time transvaginal pelvic ultrasound with image documentation. Transvaginal imaging was used for better evaluation of the endometrium, adnexa, and/or cervix. COMPARISON: CT ABDOMEN PELVIS WO CON 03/03/2022 9:50 PM FINDINGS: Uterus: A 6.2 x 7.2 x 4.7 cm masslike density is seen at the region of the vaginal cuff. The patient is status post hysterectomy. Right ovary/adnexa: Normal. No mass. Normal ovarian blood flow. Left ovary/adnexa: Normal. No mass. Normal ovarian blood flow. Urinary bladder: The bladder is unremarkable. Intraperitoneal space: No free fluid is identified. IMPRESSION: Solid mass at the vaginal, neoplasm suspected. Direct visualization and or MRI recommended for further characterization.
--- NOTE | 2022-03-03 23:47 | PC.NURSE ---
U/S tech s/w Dr. Persaud, states 7x6 cm vaginal cuff mass that appears to involve vascular .
[2022-03-04 00:32] VITALS: BP 183/80; PULSE 82; O2SAT 99
[2022-03-04 00:46] VITALS: BP 142/80; PULSE 85; RESP 18; TEMP 36.9; O2SAT 98
== END 2022-03-04 00:53 | disposition home or self-care (01) ==
PROVIDERS: Emergency Provider Emergency Medicine; PCP Family Medicine
DX: R19.05 Periumbilic swelling, mass or lump; N39.0 Urinary tract infection, site not specified; Z85.9 Personal history of malignant neoplasm, unspecified; Z79.82 Long term (current) use of aspirin; Z79.899 Other long term (current) drug therapy; F41.9 Anxiety disorder, unspecified; I11.0 Hypertensive heart disease with heart failure; I25.10 Atherosclerotic heart disease of native coronary artery without angina pectoris; E78.5 Hyperlipidemia, unspecified; F32.A Depression, unspecified; I50.9 Heart failure, unspecified; Z95.0 Presence of cardiac pacemaker; G43.909 Migraine, unspecified, not intractable, without status migrainosus; I25.2 Old myocardial infarction; M19.90 Unspecified osteoarthritis, unspecified site; Z72.0 Tobacco use
CPT/HCPCS: 74176; 76830; 80053; 81001; 84145; 85025; 85651; 86140; 87086; 99284

== ENCOUNTER 2022-04-12 17:10 | Emergency (ER) | payer MEDICARE, SELFPAY ==
[2022-04-12 17:15] VITALS: BP 117/67; PULSE 76; RESP 19; TEMP 36.6; O2SAT 99; BMI 21.2
[2022-04-12 17:20] VITALS: BP 117/67; PULSE 76; RESP 19; TEMP 36.6; O2SAT 99
--- NOTE | 2022-04-12 17:32 | HMH.EDUTC ---
[facility] Clinical Impression: Encounter for laboratory testing for COVID-19 virus Disposition: Home, Self-Care Condition on Discharge: Good Instructions: DI for COVID-19 (Suspected or Confirmed ), Preventing the Spread of Coronavirus Discharge Instructions Additional Instructions: *Monitor Temp, Over the counter Motrin or Tylenol as directed/as needed Tylenol every 4 hours and Motrin every 6 hours (as long as your family doctor has told you that you can take it) for fever or pain. and straight to ER if unable to lower temp less than 101.0 after medication given Follow up IMMEDIATELY for new or worsening symptoms or no Noticeable improvement over the next 48-72 hours. 911 for difficulty breathing or swallowing You were tested for today for COVID19 your test result should be back in the next 24-48 hours, you may check your result on the [facility] My Health Portal Make sure to take your Vitamins Vit. C Vit D and Zinc if you can take them Referrals: Fay Srinivasan MD [Primary Care Provider] - As needed Time of Disposition: 17:33 Medical Decision Making - Baron Inquiry Pt receiving controlled substance: No Baron was queried for this patient: No Vital Signs: 04/12/22 17:15 04/12/22 17:20 Temperature 97.8 F 97.8 F Temperature Source Oral Pulse Rate 76 Pulse Rate [Right Brachial] 76 Respiratory Rate 19 19 Blood Pressure 117/67 Blood Pressure [Right Arm] 117/67 Blood Pressure Mean [Right Arm] 83 Blood Pressure Source [Right Arm] Automatic Cuff Blood Pressure Position [Right Arm] Sitting 02 Sat by Pulse Oximetry 99 Oxygen Delivery Method Room Air Orders (Tests/Meds): ORDERS Category Date Time Status Covid-19 Nasal PCR ([facility]) Routine Lab 04/12/22 17:20 Received [facility] HPI - General Stated complaint: covid test Time Seen by Provider: 04/12/22 17:15 Mode of Arrival: Ambulatory Source of Information: Patient Limitations: No Limitations Description of Symptoms (Recalled from Triage Doc. by RN): COVID TEST FOR PROCEDURE HEENT Symptoms (Recalled from RN notes): No Resp Symptoms (Recalled from RN notes): No Skin Symptoms (Recalled from RN notes): No MS Symptoms (Recalled from RN notes): No Functional Status (Recalled from RN notes): WNL - History of Present Illness Provider Complaint: Patient states that she is having a biopsey done on Sunday and they told her that she had to come in and get a COVID test Denies symptoms or exposure - Related Data Home Medications Medication Instructions Recorded Confirmed escitalopram oxalate 10 mg tablet 10 mg PO DAILY 30 Days #30 12/20/17 03/17/22 nitroglycerin 0.4 mg sublingual 0.4 mg SUBLINGUAL Q5M PRN 12/20/17 03/17/22 tablet pantoprazole 40 mg tablet,delayed 40 mg PO DAILY 30 Days #30 12/20/17 03/17/22 release tizanidine 4 mg tablet 4 mg PO TID PRN 30 Days #60 12/20/17 03/17/22 topiramate 100 mg tablet 100 mg PO DAILY 30 Days #60 12/20/17 03/17/22 Tramadol HCl [Tramadol 50mg 1 tab PO Q6HP PRN 02/09/19 03/17/22 Tab] azaTHIOprine [Azathioprine] 50 mg PO BID 02/09/19 03/17/22 Atorvastatin Calcium [Lipitor 40mg 40 mg PO HS 08/04/19 03/17/22 Tab] Aspirin [Low Dose Aspirin EC] 81 mg PO DAILY 06/23/21 03/17/22 Clopidogrel Bisulfate [Plavix 75mg 75 mg PO DAILY 06/23/21 03/17/22 Tab] Metoprolol Succinate [Metoprolol 25 mg PO DAILY 06/23/21 03/17/22 Succinate 25mg Tablet*] Spironolactone [Aldactone 25mg 25 mg PO DAILY 06/23/21 03/17/22 Tab] lisinopriL [Zestril 5mg 5 mg PO DAILY 06/23/21 03/17/22 Tablet] Previous Rx's Medication Instructions Recorded levoFLOXacin [Levaquin 500mg 500 mg PO DAILY #7 tab 03/04/22 tab] oxycodone 10 mg tablet 10 mg PO Q6H PRN #30 tab 03/29/22 Allergies Allergy/AdvReac Type Severity Reaction Status Date / Time No Known Allergies Allergy Verified 03/17/22 14:35 - Worker's Comp Is this a Worker's Comp case?: No [facility] History - Hepatitis A Screen Attesta
== END 2022-04-12 17:25 | disposition home or self-care (01) ==
LOC: ER 17:15 → UTC 17:15
PROVIDERS: Emergency Provider Nurse Practitioner; PCP Family Medicine
DX: Z20.822 Contact with and (suspected) exposure to COVID-19 (principal)
CPT/HCPCS: 99212; C9803; G0463; U0003; U0005